=== PATIENT | female | born 1935 | race Caucasian/White ===

== ENCOUNTER → 2017-02-12 | Outpatient (CLI) | payer MEDICARE, OTHER ==
--- NOTE | 2017-02-13 07:58 | MM ---
Reason for exam: additional evaluation requested from prior study. Last mammogram was performed 1 year ago. History: Patient is postmenopausal and has history of breast cancer at age 78. Mastectomy of the left breast, 2013. Benign stereotactic core biopsy of the left breast, August 31, 1999. Took estrogen for 1 year. Took progesterone for 1 year. Physical Findings: Nurse did not find any significant physical abnormalities on exam. MG 3D Diag Mammo W/Cad RT CC, MLO, and XCCM view(s) were taken of the right breast. Prior study comparison: February 10, 2016, right breast MG 3d diag mammo w/cad RT. August 06, 2015, right breast MG 3d diag mammo w/cad RT. The breast tissue is heterogeneously dense. This may lower the sensitivity of mammography. Finding #1: There is a 5 mm equal density (isodense) mass in the subareolar position of the right breast. Finding #2: There are typically benign calcifications in the right breast. These results were verbally communicated with the patient and result sheet given to the patient on 02/12/17. ASSESSMENT: Incomplete: need additional imaging evaluation, BI-RAD 0 RECOMMENDATION: Ultrasound of the right breast.
--- NOTE | 2017-02-13 08:02 | USB ---
Reason for exam: additional evaluation requested from abnormal screening. History: Patient is postmenopausal and has history of breast cancer at age 78. Mastectomy of the left breast, 2014. Benign stereotactic core biopsy of the left breast, August 31, 1999. Took estrogen for 1 year. Took progesterone for 1 year. US Breast Limited RT Right breast ultrasound demonstrates no cystic or solid lesion seen. Few subareolar ducts. 02/10/16 ultrasound review and 08/06/15 ultrasound reviewed. These results were verbally communicated with the patient and result sheet given to the patient on 02/12/17. ASSESSMENT: Benign, BI-RAD 2 RECOMMENDATION: Follow-up diagnostic mammogram of the right breast in 6 months.
== END | disposition home or self-care (01) ==
LOC: RADMAMWWP 15:09
PROVIDERS: ATTEND Surgery
DX: R92.2 Inconclusive mammogram (principal); R92.8 Other abnormal and inconclusive findings on diagnostic imaging of breast; Z85.3 Personal history of malignant neoplasm of breast
CPT/HCPCS: 76642; G0206; G0279

== ENCOUNTER → 2018-06-13 | Outpatient (CLI) | payer MEDICARE, OTHER ==
--- NOTE | 2018-06-14 07:34 | MM ---
Reason for exam: additional evaluation requested from prior study. Last mammogram was performed 10 months ago. History: Patient is postmenopausal and has history of breast cancer at age 78. Mastectomy of the left breast, 2013. Benign stereotactic core biopsy of the left breast, August 31, 1999. Took estrogen for 1 year. Took progesterone for 1 year. Physical Findings: Nurse did not find any significant physical abnormalities on exam. MG 3D Diag Mammo W/Cad RT CC, MLO, and XCCL view(s) were taken of the right breast. Prior study comparison: August 15, 2017, right breast MG 3d diag mammo w/cad RT. February 12, 2017, right breast MG 3d diag mammo w/cad RT. The breast tissue is heterogeneously dense. This may lower the sensitivity of mammography. Finding: There are typically benign vascular calcifications in the right breast and few benign round calcifications in the right breast. There is no discrete abnormality. These results were verbally communicated with the patient and result sheet given to the patient on 06/13/18. ASSESSMENT: Benign, BI-RAD 2 RECOMMENDATION: Follow-up diagnostic mammogram of the right breast in 1 year.
== END ==
LOC: RADMAMWWP 15:17
PROVIDERS: ATTEND Surgery
DX: Z08 Encounter for follow-up examination after completed treatment for malignant neoplasm (principal); Z85.3 Personal history of malignant neoplasm of breast
CPT/HCPCS: 77065; G0279; 77061

== ENCOUNTER 2019-05-07 10:21 | Inpatient (IN) | payer MEDICARE, OTHER ==
--- NOTE | 2019-05-07 10:48 | ED ---
General Adult HPI - General Chief complaint: Weakness Stated complaint: Weakness, Poss Med Reaction Time Seen by Provider: 05/07/19 10:25 Source: patient, EMS, RN notes reviewed Mode of arrival: EMS Limitations: no limitations - History of Present Illness Initial comments: This is an 84-year-old female presents emergency department with past medical history significant for recent GI bleed diverticulitis and atrial fibrillation. Patient was just released from [facility] yesterday. Patient states at home she didn't feel good is no more specific. Patient states she's weak all over no new areas of pain. Patient denies chest pain difficulty breathing shortness of breath per patient denies any fever. Patient denies abdominal pain patient denies nausea vomiting or diarrhea. Patient denies headache patient denies numbness weakness. Patient denies any injury or trauma. - Related Data Home Medications Medication Instructions Recorded Confirmed Acetaminophen Tab [Tylenol] 650 mg PO Q6HR PRN 05/07/19 05/07/19 Baclofen [Lioresal] 5 mg PO TID PRN 05/07/19 05/07/19 Cefuroxime Axetil [Ceftin] 500 mg PO BID 05/07/19 05/07/19 Clobetasol Propionate [Temovate 1 applic TOPICAL BID 05/07/19 05/07/19 0.05% Cream] Cyanocobalamin (Vitamin B-12) 1,000 mcg PO DAILY 05/07/19 05/07/19 [Vitamin B-12] Ferrous Sulfate [Feosol] 325 mg PO DAILY 05/07/19 05/07/19 HYDROcodone/APAP 5-325MG [[place] 0.5 tab PO Q6H PRN 05/07/19 05/07/19 5-325] Ibuprofen [Motrin] 600 mg PO BID PRN 05/07/19 05/07/19 LORazepam [Ativan] 1 mg PO DAILY PRN 05/07/19 05/07/19 Metoprolol Tartrate [Lopressor] 25 mg PO Q8H 05/07/19 05/07/19 Omeprazole 20 mg PO BID 05/07/19 05/07/19 Sennosides [Senna] 8.6 mg PO BID 05/07/19 05/07/19 Simvastatin [Zocor] 20 mg PO HS 05/07/19 05/07/19 metroNIDAZOLE [Flagyl] 500 mg PO Q8H 05/07/19 05/07/19 Allergies Allergy/AdvReac Type Severity Reaction Status Date / Time aspirin Allergy Unknown Verified 05/07/19 11:07 codeine Allergy Unknown Verified 05/07/19 11:07 nalbuphine [From Nubain] Allergy Unknown Verified 05/07/19 11:07 Review of Systems ROS Statement: Those systems with pertinent positive or pertinent negative responses have been documented in the HPI. ROS Other: All systems not noted in ROS Statement are negative. Past Medical History Past Medical History: Atrial Fibrillation, Cancer, GERD/Reflux, GI Bleed, Hyperlipidemia Past Surgical History: Back Surgery, Breast Surgery, Hysterectomy Past Psychological History: Anxiety Smoking Status: Former smoker Past Alcohol Use History: None Reported Past Drug Use History: None Reported General Exam - General Exam Comments Initial Comments: GENERAL: Patient is well-developed and well-nourished. Patient is nontoxic and well- hydrated and is in mild distress. ENT: Neck is soft and supple. No significant lymphadenopathy is noted. Oropharynx is clear. Moist mucous membranes. EYES: The sclera were anicteric and conjunctiva were pink and moist. Extraocular movements were intact and pupils were equal round and reactive to light. Eyelids were unremarkable. PULMONARY: Unlabored respirations. Good breath sounds bilaterally. No audible rales rhonchi or wheezing was noted. CARDIOVASCULAR: Patient has an irregular rate and rhythm at about 150 beats a minute ABDOMEN: Soft and nontender with normal bowel sounds. SKIN: Skin is clear with no lesions or rashes and otherwise unremarkable. NEUROLOGIC: Patient is alert and oriented x3. Cranial nerves II through XII are grossly intact. Motor and sensory are also intact. Normal speech, volume and content. Symmetrical smile. MUSCULOSKELETAL: Normal extremities with adequate strength and full range of motion. No lower extremity swelling or edema. No calf tenderness. LYMPHATICS: No significant lymphadenopathy is noted PSYCHIATRIC: Normal psychiatric evaluation. Limitations: no limitations Course Vital Signs 05/07/19 05/07/19 05/07/19 10:28 10:30 10:38 Temperature 98.1 F Pulse Rate 158 H 161 H Pulse Rate [ 158 H Left Supine Pulse Oximetery ] Respiratory 18 16 Rate Blood Pressure 123/85 O2 Sat by Pulse 100 99 Oximetry 05/07/19 05/07/19 11:32 13:10 Temperature Pulse Rate 165 H 133 H Pulse Rate [ Left Supine Pulse Oximetery ] Respiratory 18 18 Rate Blood Pressure 101/65 112/67 O2 Sat by Pulse 99 98 Oximetry Medical Decision Making - Medical Decision Making EKG shows atrial fibrillation with rapid ventricular response at 141 bpm QRS is 74 QT interval 310 QTC is 474. Patient's EKG does show some ST segment depression in precordial leads V4 V5 and V6. Patient's chest x-ray shows no acute abnormality. Patient's troponin was slightly elevated and was placed on Cardizem because his heart rate. I did not start her on a blood thinner because she has a recent his tory she tells me of a GI bleed. Patient remained without chest pain throughout her stay. I spoke with Dr. Newell she agreed to admit the patient admitted the patient I wrote admitting orders - Lab Data Result diagrams: 05/07/19 10:37 05/07/19 11:40 Lab Results 05/07/19 05/07/19 05/07/19 Range/Units 10:37 11:40 11:40 WBC 8.0 (3.8-10.6) k/uL RBC 3.23 L (3.80-5.40) m/uL Hgb 10.2 L (11.4-16.0) gm/dL Hct 31.2 L (34.0-46.0) % MCV 96.4 (80.0-100.0) fL MCH 31.5 (25.0-35.0) pg MCHC 32.7 (31.0-37.0) g/dL RDW 20.9 H (11.5-15.5) % Plt Count 478 H (150-450) k/uL Neutrophils % 81 % Lymphocytes % 10 % Monocytes % 6 % Eosinophils % 1 % Basophils % 1 % Neutrophils # 6.5 (1.3-7.7) k/uL Lymphocytes # 0.8 L (1.0-4.8) k/uL Monocytes # 0.5 (0-1.0) k/uL Eosinophils # 0.1 (0-0.7) k/uL Basophils # 0.1 (0-0.2) k/uL Hypochromasia Slight Poikilocytosis Slight Anisocytosis Moderate Macrocytosis Slight PT (9.0-12.0) sec INR (<1.2) APTT (22.0-30.0) sec Sodium 139 (137-145) mmol/L Potassium 4.4 (3.5-5.1) mmol/L Chloride 112 H (98-107) mmol/L Carbon Dioxide 18 L (22-30) mmol/L Anion Gap 9 mmol/L BUN 17 (7-17) mg/dL Creatinine 0.62 (0.52-1.04) mg/dL Est GFR (CKD-EPI)AfAm >90 (>60 ml/min/1.73 sqM) Est GFR (CKD-EPI)NonAf 83 (>60 ml/min/1.73 sqM) Glucose 100 H (74-99) mg/dL Calcium 8.5 (8.4-10.2) mg/dL Magnesium 2.0 (1.6-2.3) mg/dL Total Bilirubin 0.5 (0.2-1.3) mg/dL AST 29 (14-36) U/L ALT 16 (9-52) U/L Alkaline Phosphatase 97 (38-126) U/L Troponin I 0.226 H* (0.000-0.034) ng/mL Total Protein 5.4 L (6.3-8.2) g/dL Albumin 2.6 L (3.5-5.0) g/dL TSH 0.868 (0.465-4.680) mIU/L 05/07/19 Range/Units 11:40 WBC (3.8-10.6) k/uL RBC (3.80-5.40) m/uL Hgb (11.4-16.0) gm/dL Hct (34.0-46.0) % MCV (80.0-100.0) fL MCH (25.0-35.0) pg MCHC (31.0-37.0) g/dL RDW (11.5-15.5) % Plt Count (150-450) k/uL Neutrophils % % Lymphocytes % % Monocytes % % Eosinophils % % Basophils % % Neutrophils # (1.3-7.7) k/uL Lymphocytes # (1.0-4.8) k/uL Monocytes # (0-1.0) k/uL Eosinophils # (0-0.7) k/uL Basophils # (0-0.2) k/uL Hypochromasia Poikilocytosis Anisocytosis Macrocytosis PT 9.7 (9.0-12.0) sec INR 0.9 (<1.2) APTT 18.2 L (22.0-30.0) sec Sodium (137-145) mmol/L Potassium (3.5-5.1) mmol/L Chloride (98-107) mmol/L Carbon Dioxide (22-30) mmol/L Anion Gap mmol/L BUN (7-17) mg/dL Creatinine (0.52-1.04) mg/dL Est GFR (CKD-EPI)AfAm (>60 ml/min/1.73 sqM) Est GFR (CKD-EPI)NonAf (>60 ml/min/1.73 sqM) Glucose (74-99) mg/dL Calcium (8.4-10.2) mg/dL Magnesium (1.6-2.3) mg/dL Total Bilirubin (0.2-1.3) mg/dL AST (14-36) U/L ALT (9-52) U/L Alkaline Phosphatase (38-126) U/L Troponin I (0.000-0.034) ng/mL Total Protein (6.3-8.2) g/dL Albumin (3.5-5.0) g/dL TSH (0.465-4.680) mIU/L Critical Care Time Critical Care Time: Yes Total Critical Care Time: 35 Disposition Clinical Impression: Atrial fibrillation with rapid ventricular response, Elevated troponin Disposition: ADMITTED IP TO THIS HOSP Referrals: Gideon Calderon MD [Primary Care Provider] - 1-2 days Time of Disposition: 14:03
[2019-05-07] MEDS: DILTIAZEM 125 MG in SODIUM CHLORIDE 0.9% 100 ML IV SCH (10:53)
[2019-05-07 11:00] LABS: Anisocytosis Moderate; Basophils # (A) 0.1 k/uL (0-0.2); Basophils % (A) 1 %; Eosinophils # (A) 0.1 k/uL (0-0.7); Eosinophils % (A) 1 %; HCT 31.2 % (34.0-46.0); HGB 10.2 gm/dL (11.4-16.0); Hypochromasia Slight; Lymphocytes # (A) 0.8 k/uL (1.0-4.8); Lymphocytes % (A) 10 %; MCH 31.5 pg (25.0-35.0); MCHC 32.7 g/dL (31.0-37.0); MCV 96.4 fL (80.0-100.0); Macrocytosis Slight; Mean Platelet Volume 7.8; Monocytes # (A) 0.5 k/uL (0-1.0); Monocytes % (A) 6 %; Neutrophils # (A) 6.5 k/uL (1.3-7.7); Neutrophils % (A) 81 %; Platelet Count 478 k/uL (150-450); Poikilocytosis Slight; RBC 3.23 m/uL (3.80-5.40); RDW 20.9 % (11.5-15.5)
--- NOTE | 2019-05-07 11:22 | XR ---
EXAMINATION TYPE: XR chest 2V DATE OF EXAM: 05/07/2019 COMPARISON: NONE TECHNIQUE: PA and lateral views submitted. HISTORY: Dysrhythmia FINDINGS: Heart is prominent. There is ectasia of the aorta. Coarsened interstitium. No pneumothorax. No pleura l effusion. Arthropathy of the shoulders and diffuse osteopenia. Atherosclerotic change aorta. Surgic al clips in the gallbladder fossa noted. IMPRESSION: 1. Coarsened interstitium may secondary to chronic lung disease. Superimposed interstitial pneumoniti s or congestion not excluded without prior exam. Correlate clinically
[2019-05-07] MEDS ORDERED: LORazepam 2 MG/ML INJ IV STA (12:08)
[2019-05-07] MEDS ORDERED: HYDROcodone/APAP 5-325MG 1 EACH TAB PO STA (12:09)
[2019-05-07] MEDS ORDERED: SODIUM CHLORIDE 0.9% 500 ML 500 ML IV STA (12:10)
[2019-05-07 12:11] LABS: INR 0.9 (<1.2); Prothrombin Time 9.7 sec (9.0-12.0)
[2019-05-07 12:13] LABS: Partial Thromboplastin Time 18.2 sec (22.0-30.0)
[2019-05-07 12:14] LABS: ALT 16 U/L (9-52); AST 29 U/L (14-36); African American GFR (CKD) >90 (>60 ml/min/1.73 sqM); Albumin 2.6 g/dL (3.5-5.0); Alkaline Phosphatase 97 U/L (38-126); Anion Gap 9 mmol/L; Blood Urea Nitrogen 17 mg/dL (7-17); Calcium 8.5 mg/dL (8.4-10.2); Carbon Dioxide 18 mmol/L (22-30); Chloride 112 mmol/L (98-107); Glucose 100 mg/dL (74-99); Potassium 4.4 mmol/L (3.5-5.1); Sodium 139 mmol/L (137-145); Total Bilirubin 0.5 mg/dL (0.2-1.3); Total Protein 5.4 g/dL (6.3-8.2)
[2019-05-07] MEDS ORDERED: NITROGLYCERIN SL TABS 0.4 MG TAB SUBLINGUAL PRN (14:04)
[2019-05-07] MEDS ORDERED: LORazepam 1 MG TAB PO PRN (14:49)
[2019-05-07] MEDS ORDERED: ACETAMINOPHEN TAB 325 MG TAB PO PRN (14:49)
--- NOTE | 2019-05-07 15:06 | P.HPIM ---
History of Present Illness H&P Date: 05/07/19 84 years old patient of Dr. Calderon with past medical history of osteoarthritis breast cancer, hyperlipidemia, headache migraine, history of peptic ulcer disease, discharged yesterday from [facility] of treatment for acute diverticulitis and GI bleed presents today to the ER with generalized weakness associated with chest discomfort. On evaluation patient was found to be in A. fib with RVR associated with troponin elevation. Patient was in [facility] for 16 days where she presented with syncope and abdominal pain. CT abdomen and pelvis done initially did not show any acute abnormality. Patient presented to atrial fibrillation with RVR while patient was in the hospital was started on Lopressor at [place]. Patient's sodium began to have abdominal pain and rectal bleeding Dr. nam of the patient's suspected diverticulitis and started patient on Zosyn and Flagyl. Zosyn was switched to cefepime with improvement in patient's abdominal pain and GI bleeding. Endocrine is was held due to concern of GI bleed. Patient comes in today with heart rate of 158 respiratory rate 16 blood pressure 101/65 oxygen 99% on 2 L. Patient was placed on Cardizem drip and cardiology was consulted. On evaluation admitted in design any chest pain or shortness of breath. She complains of generalized weakness, cold feet and feeling of uneasiness in the chest. On eval uation of blood work patient has a hemoglobin of 10.2 (hemoglobin of 8 on discharge ), sodium 139 potassium 4.4 bicarb 18, troponin 0.226. TSH 0.868. Patient to be placed on telemetry. IV fluids initiated on 1 25 mL per hour Review of Systems Constitutional: Denies chills, Denies fever, endorses lethargic lDenies weight loss Eyes: denies decreased vision, denies diplopia, denies discharge, denies pain Ears: deny: decreased hearing Ears, nose, mouth and throat: Denies dental pain, Denies headache, Denies nasal discharge, Denies nose pain Cardiovascular: Denies chest pain, Denies decreased exercise tolerance, Denies edema, Denies high blood pressure, endorses irregular heart beat, endorses palpitations, Denies paroxysmal nocturnal dyspnea, endorses rapid heart beat, Denies shortness of breath Respiratory: Denies congestion, Denies cough, Denies cough with sputum, Denies dyspnea, Denies home oxygen, Denies wheezing Gastrointestinal: Denies abdominal pain, Denies change in bowel habits, Denies coffee ground emesis, Denies early satiety, Denies excessive gas, Denies heartburn, Denies hematemesis, Denies hematochezia, Denies loss of appetite, Denies nausea, Denies vomiting Genitourinary: Denies dysuria, Denies flank pain, Denies kidney stones, Denies menorrhagia, Denies urgency, Denies urinary frequency Musculoskeletal: Denies gait dysfunction, Denies limitation of motion, Denies morning stiffness, Denies muscle cramps Integumentary: Denies rash, Denies wounds, Denies brittle nails, Denies change in hair/nails, Denies darkening of skin Neurological: Denies balance difficulties, Denies change in speech, Denies double vision, Denies gait dysfunction, Denies loss of vision, Denies motor disturbance, Denies numbness, Denies paralysis, Denies paresthesias, Denies seizures Psychiatric: Denies anxiety, Denies depression Endocrine: Denies excessive sweating, Denies excessive thirst, Denies high blood sugars, Denies palpitations Hematologic/Lymphatic: Denies easy bruising, Denies lymphadenopathy Past Medical History Past Medical History: Atrial Fibrillation, Cancer, GERD/Reflux, GI Bleed, Hyperlipidemia Past Surgical History: Back Surgery, Breast Surgery, Hysterectomy Past Psychological History: Anxiety Smoking Status: Former smoker Past Alcohol Use History: None Reported Past Drug Use History: None Reported - Past Family History Mother Family Medical History: Congestive Heart Failure (CHF), Coronary Artery Disease (CAD) Father Family Medical History: Diabetes Mellitus Brother(s) Family Medical History: Congestive Heart Failure (CHF), Coronary Artery Disease (CAD) (Mother at age 75 father at age ED 3 sister from unclear reasons 2 brothers from heart disease one daughter and one son were healthy once and from brain hemorrhage) Medications and Allergies Home Medications Medication Instructions Recorded Confirmed Type Acetaminophen Tab [Tylenol] 650 mg PO Q6HR PRN 05/07/19 05/07/19 History Baclofen [Lioresal] 5 mg PO TID PRN 05/07/19 05/07/19 History Cefuroxime Axetil [Ceftin] 500 mg PO BID 05/07/19 05/07/19 History Clobetasol Propionate [Temovate 1 applic TOPICAL BID 05/07/19 05/07/19 History 0.05% Cream] Cyanocobalamin (Vitamin B-12) 1,000 mcg PO DAILY 05/07/19 05/07/19 History [Vitamin B-12] Ferrous Sulfate [Feosol] 325 mg PO DAILY 05/07/19 05/07/19 History HYDROcodone/APAP 5-325MG [[place] 0.5 tab PO Q6H PRN 05/07/19 05/07/19 History 5-325] Ibuprofen [Motrin] 600 mg PO BID PRN 05/07/19 05/07/19 History LORazepam [Ativan] 1 mg PO DAILY PRN 05/07/19 05/07/19 History Metoprolol Tartrate [Lopressor] 25 mg PO Q8H 05/07/19 05/07/19 History Omeprazole 20 mg PO BID 05/07/19 05/07/19 History Sennosides [Senna] 8.6 mg PO BID 05/07/19 05/07/19 History Simvastatin [Zocor] 20 mg PO HS 05/07/19 05/07/19 History metroNIDAZOLE [Flagyl] 500 mg PO Q8H 05/07/19 05/07/19 History Allergies Allergy/AdvReac Type Severity Reaction Status Date / Time aspirin Allergy Unknown Verified 05/07/19 11:07 codeine Allergy Unknown Verified 05/07/19 11:07 nalbuphine [From Nubain] Allergy Unknown Verified 05/07/19 11:07 Physical Exam Vitals: Vital Signs Temp Pulse Pulse Resp BP Pulse Ox 05/07/19 14:12 145 H 18 125/81 99 05/07/19 13:10 133 H 18 112/67 98 05/07/19 11:32 165 H 18 101/65 99 05/07/19 10:38 161 H 16 99 05/07/19 10:30 158 H 05/07/19 10:28 98.1 F 158 H 18 123/85 100 Intake and Output 05/06/19 05/07/19 05/07/19 22:59 06:59 14:59 Intake Total 16.667 Balance 16.667 Intake: Intake, IV Titration 16.667 Amount Diltiazem 125 mg In 16.667 Sodium Chloride 0.9% 100 ml @ 5 MG/HR 5 mls/hr IV .Q24H [facility] Rx#:[id number] Other: Weight 56.699 kg - Constitutional General appearance: cooperative, no acute distress, obese anxious appearing - EENT Eyes: anicteric sclerae, PERRLA, normal appearance ENT: hearing grossly normal - Neck Neck: no lymphadenopathy, normal ROM, no other, no rigidity, no stridor, no thyromegaly - Respiratory Respiratory: bilateral: CTA, negative: diminished, dullness, rales, rhonchi - Cardiovascular Rhythm: Irregularly irregular Heart sounds: normal: S1, S2 Abnormal Heart Sounds: 3/5 systolic murmur, no diastolic murmur, no rub, no S3 Gallop, no S4 Gallop, no click, no other - Gastrointestinal General gastrointestinal: normal bowel sounds, soft nontender - Integumentary Integumentary: no rash - Neurologic Neurologic: CNII-XII intact - Musculoskeletal Musculoskeletal: gait normal, strength equal bilaterally - Psychiatric Psychiatric: A&O x's 3, appropriate affect Results CBC & Chem 7: 05/07/19 10:37 05/07/19 11:40 Labs: Abnormal Lab Results - Last 24 Hours (Table) 05/07/19 05/07/19 05/07/19 Range/Units 10:37 11:40 11:40 RBC 3.23 L (3.80-5.40) m/uL Hgb 10.2 L (11.4-16.0) gm/dL Hct 31.2 L (34.0-46.0) % RDW 20.9 H (11.5-15.5) % Plt Count 478 H (150-450) k/uL Lymphocytes # 0.8 L (1.0-4.8) k/uL APTT (22.0-30.0) sec Chloride 112 H (98-107) mmol/L Carbon Dioxide 18 L (22-30) mmol/L Glucose 100 H (74-99) mg/dL Troponin I 0.226 H* (0.000-0.034) ng/mL Total Protein 5.4 L (6.3-8.2) g/dL Albumin 2.6 L (3.5-5.0) g/dL 05/07/19 Range/Units 11:40 RBC (3.80-5.40) m/uL Hgb (11.4-16.0) gm/dL Hct (34.0-46.0) % RDW (11.5-15.5) % Plt Count (150-450) k/uL Lymphocytes # (1.0-4.8) k/uL APTT 18.2 L (22.0-30.0) sec Chloride (98-107) mmol/L Carbon Dioxide (22-30) mmol/L Glucose (74-99) mg/dL Troponin I (0.000-0.034) ng/mL Total Protein (6.3-8.2) g/dL Albumin (3.5-5.0) g/dL Thrombosis Risk Factor Assmnt - DVT/VTE Prophylaxis DVT/VTE Prophylaxis: Mechanical Prophylaxis ordered Assessment and Plan Plan: #1 atrial fibrillation with RVR patient initiated her on Cardizem titrated to 10 mg/h metoprolol initiated at 25 mg every 8 hours. Patient cannot be on anticoagulation due to recent GI bleed. Cardiology consult placed EKG suggests atrial fibrillation continue patient on telemetry. Likely possibility from dehydration continue normal saline at 100 mL/h #2 acute blood loss anemia hemoglobin stable at 10.2. Patient required multiple units of transfusion in the other hospital. CBC daily to monitor hemoglobin #3 history of lumbar compression fracture multiple falls with annual fracture noted in the L2. PTOT consult. #4 history of diverticulitis currently on treatment with antibiotics will switch patient to cefepime for one week end date 05/14 along with Flagyl #5 history of hypertension continue metoprolol 25 every 8 #6 history of hyperlipidemia continue simvastatin #7 history of syncope appeared to be a vasovagal syncope. #8 constipation continue Colace and MiraLAX as needed #98 prophylaxis with Pepcid 20 mg by mouth daily #10 DVT prophylaxis continue mechanical prophylaxis ordered him heparin #11 history of anxiety continue Ativan 1 mg by mouth daily as needed
[2019-05-07] MEDS: SODIUM CHLORIDE 0.9% 1,000 ML IV SCH (15:21)
[2019-05-07] MEDS: NITROGLYCERIN OINT 1 INCH/GM PACKET TOPICAL SCH (18:25)
[2019-05-07] MEDS: CEFEPIME 2 GM in SODIUM CHLORIDE 0.9% 100 ML IVPB SCH (18:32)
[2019-05-07] MEDS: METOPROLOL TARTRATE 25 MG TAB PO SCH (18:37)
[2019-05-07] MEDS: metroNIDAZOLE 500 MG TAB PO SCH ×2 (18:37→22:42)
[2019-05-07] MEDS: PANTOPRAZOLE 40 MG TABLET PO SCH (18:37)
[2019-05-07] MEDS: HYDROcodone/APAP 5-325MG 1 EACH TAB PO PRN (20:20)
[2019-05-07] MEDS: BACLOFEN 10 MG TAB PO PRN (22:42)
[2019-05-07] MEDS: ATORVASTATIN 10 MG TAB PO SCH (22:42)
[2019-05-08] MEDS: METOPROLOL TARTRATE 25 MG TAB PO SCH ×3 (00:15→18:24)
[2019-05-08] MEDS: CEFEPIME 2 GM in SODIUM CHLORIDE 0.9% 100 ML IVPB SCH ×3 (00:15→18:23)
[2019-05-08 03:20] LABS: Cholesterol 129 mg/dL (<200); HDL Cholesterol 33 mg/dL (40-60); LDL Cholesterol,Calculated 75 mg/dL (0-99); Triglycerides 103 mg/dL (<150)
[2019-05-08] MEDS: CLOBETASOL PROP 0.05% CR 15GM TOPICAL SCH ×2 (06:30→10:36)
[2019-05-08] MEDS: NITROGLYCERIN OINT 1 INCH/GM PACKET TOPICAL SCH ×4 (06:34→19:14)
[2019-05-08] MEDS: PANTOPRAZOLE 40 MG TABLET PO SCH (06:37)
[2019-05-08] MEDS: SODIUM CHLORIDE 0.9% 1,000 ML IV SCH ×2 (07:50→13:35)
[2019-05-08] MEDS ORDERED: ASPIRIN 325 MG TAB PO SCH (09:00)
[2019-05-08] MEDS: FERROUS SULFATE 325 MG TAB PO SCH (09:20)
[2019-05-08] MEDS: metroNIDAZOLE 500 MG TAB PO SCH ×2 (09:20→18:24)
[2019-05-08] MEDS: HYDROcodone/APAP 5-325MG 1 EACH TAB PO PRN ×2 (09:21→18:26)
[2019-05-08 12:03] VITALS: BMI 25.8
[2019-05-08] MEDS: LORazepam 0.5 MG TAB PO PRN ×2 (13:34→22:13)
[2019-05-08] MEDS: DILTIAZEM 125 MG in SODIUM CHLORIDE 0.9% 100 ML IV SCH (13:36)
--- NOTE | 2019-05-08 14:23 | P.PN ---
Subjective Progress Note Date: 05/08/19 84 [address] old patient of Dr. Calderon with past medical history of osteoarthritis breast cancer, hyperlipidemia, headache migraine, history of peptic ulcer disease, discharged yesterday from [facility] of treatment for acute diverticulitis and GI bleed presents today to the ER with generalized weakness associated with chest discomfort. On evaluation patient was found to be in A. fib with RVR associated with troponin elevation. Patient was in [facility] for 16 days where she presented with syncope and abdominal pain. CT abdomen and pelvis done initially did not show any acute abnormality. Patient presented to atrial fibrillation with RVR while patient was in the [facility] was started on Lopressor at [place]. Patient's sodium began to have abdominal pain and rectal bleeding Dr. nam of the patient's suspected diverticulitis and started patient on Zosyn and Flagyl. Zosyn was switched to cefepime with improvement in patient's abdominal pain and GI bleeding. En docrine is was held due to concern of GI bleed. Patient comes in today with heart rate of 158 respiratory rate 16 blood pressure 101/65 oxygen 99% on 2 L. Patient was placed on Cardizem drip and cardiology was consulted. On evaluation admitted in design any chest pain or shortness of breath. She complains of generalized weakness, cold feet and feeling of uneasiness in the chest. On evaluation of blood work patient has a hemoglobin of 10.2 (hemoglobin of 8 on discharge ), sodium 139 potassium 4.4 bicarb 18, troponin 0.226. TSH 0.868. Patient to be placed on telemetry. IV fluids initiated on 1 25 mL per hour 05/08: Patient is on a Cardizem drip. hedis coordinator is atrial fibrillation with controlled rate. Patient is not candidate for anticoagulation due to GI bleed. Troponin subinsular 0.226, 0.808, 0.916. Cardiology is on consult. The patient and daughter state that patient does not take Ativan only once a day but up to 3 times a day. On home medication list, Ativan is listed at 1 mg at bedtime. We will change this to 0.5 mg twice daily and patient and daughter are in a greement. Patient has been afebrile, heart rate 58, blood pressure 104/52, pulse ox 99% on room air. Regarding IV antibiotics, patient was on IV antibiotics at [facility] but when she was discharged it was found that she did not have any IV coverage and patient was discharged on oral antibiotics in the form of Flagyl and Ceftin. Patient has been resumed on cefepime which will be continued during her hospitalization. Plan at discharge will be to resume the oral antibiotics. IV fluids may be discontinued. Repeat lab in the morning. Objective - Vital Signs Vital signs: Vital Signs Temp 97.7 F 05/08/19 08:20 Pulse 74 05/08/19 08:21 Resp 16 05/08/19 08:20 BP 150/63 05/08/19 08:20 Pulse Ox 100 05/08/19 08:20 Intake & Output 05/07/19 05/08/19 05/08/19 18:59 06:59 18:59 Intake Total 16.667 120 Balance 16.667 120 Weight 56.699 kg 58.1 kg Intake: Intake, IV Titration 16.667 Amount Diltiazem 125 mg In 16.667 Sodium Chloride 0.9% 100 ml @ 5 MG/HR 5 mls/hr IV .Q24H [facility] Rx#:[id number] Oral 0 120 Other: Voiding Method Toilet Toilet # Voids 1 1 1 - Exam Review of Systems Constitutional: Denies chills, Denies fever, endorses lethargic lDenies weight loss Eyes: denies decreased vision, denies diplopia, denies discharge, denies pain Ears: deny: decreased hearing Ears, nose, mouth and throat: Denies dental pain, Denies headache, Denies nasal discharge, Denies nose pain Cardiovascular: Denies chest pain, Denies decreased exercise tolerance, Denies edema, Denies high blood pressure, endorses irregular heart beat, endorses palpitations, Denies paroxysmal nocturnal dyspnea, endorses rapid heart beat, Denies shortness of breath Respiratory: Denies congestion, Denies cough, Denies cough with sputum, Denies dyspnea, Denies home oxygen, Denies wheezing Gastrointestinal: Denies abdominal pain, Denies change in bowel habits, Denies coffee ground emesis, Denies early satiety, Denies excessive gas, Denies heartburn, Denies hematemesis, Denies hematochezia, Denies loss of appetite, Denies nausea, Denies vomiting Genitourinary: Denies dysuria, Denies flank pain, Denies kidney stones, Denies menorrhagia, Denies urgency, Denies urinary frequency Musculoskeletal: Denies gait dysfunction, Denies limitation of motion, Denies morning stiffness, Denies muscle cramps Integumentary: Denies rash, Denies wounds, Denies brittle nails, Denies change in hair/nails, Denies darkening of skin Neurological: Denies balance difficulties, Denies change in speech, Denies double vision, Denies gait dysfunction, Denies loss of vision, Denies motor dist urbance, Denies numbness, Denies paralysis, Denies paresthesias, Denies seizures Psychiatric: Reports anxiety, Denies depression Endocrine: Denies excessive sweating, Denies excessive thirst, Denies high blood sugars, Denies palpitations Hematologic/Lymphatic: Denies easy bruising, Denies lymphadenopathy - Constitutional General appearance: cooperative, no acute distress, obese anxious appearing - EENT Eyes: anicteric sclerae, PERRLA, normal appearance ENT: hearing grossly normal - Neck Neck: no lymphadenopathy, normal ROM, no other, no rigidity, no stridor, no thyromegaly - Respiratory Respiratory: bilateral: CTA, negative: diminished, dullness, rales, rhonchi - Cardiovascular Rhythm: Irregularly irregular Heart sounds: normal: S1, S2 Abnormal Heart Sounds: 3/5 systolic murmur, no diastolic murmur, no rub, no S3 Gallop, no S4 Gallop, no click, no other hedis coordinator: Atrial fibrillation, controlled rate - Gastrointestinal General gastrointestinal: normal bowel sounds, soft nontender - Integumentary Integumentary: no rash - Neurologic Neurologic: CNII-XII intact - Musculoskeletal Musculoskeletal: gait normal, strength equal bilaterally - Psychiatric Psychiatric: A&O x's 3, appropriate affect - Labs CBC & Chem 7: 05/07/19 10:37 05/07/19 11:40 Labs: Abnormal Lab Results - Last 24 Hours (Table) 05/07/19 05/07/19 05/07/19 Range/Units 11:40 11:40 11:40 APTT 18.2 L (22.0-30.0) sec Chloride 112 H (98-107) mmol/L Carbon Dioxide 18 L (22-30) mmol/L Glucose 100 H (74-99) mg/dL Troponin I 0.226 H* (0.000-0.034) ng/mL Total Protein 5.4 L (6.3-8.2) g/dL Albumin 2.6 L (3.5-5.0) g/dL HDL Cholesterol (40-60) mg/dL 05/07/19 05/07/19 05/08/19 Range/Units 11:40 18:04 00:01 APTT (22.0-30.0) sec Chloride (98-107) mmol/L Carbon Dioxide (22-30) mmol/L Glucose (74-99) mg/dL Troponin I 0.808 H* 0.916 H* (0.000-0.034) ng/mL Total Protein (6.3-8.2) g/dL Albumin (3.5-5.0) g/dL HDL Cholesterol 33 L (40-60) mg/dL Assessment and Plan Plan: #1 atrial fibrillation with RVR patient initiated her on Cardizem titrated to 10 mg/h metoprolol initiated at 25 mg every 8 hours. Patient cannot be on anticoagulation due to recent GI bleed. Cardiology consult placed EKG suggests atrial fibrillation continue patient on telemetry. Likely possibility from dehydration continue normal saline at 100 mL/h #2 acute blood loss anemia hemoglobin stable at 10.2. Patient required multiple units of transfusion in the other hospital. Repeat CBC in the morning. #3 elevated troponins. Cardiology on consult. #4 history of lumbar compression fracture multiple falls with annual fracture noted in the L2. PTOT consult. #4 history of diverticulitis currently on treatment with antibiotics will switch patient to cefepime for one week end date 05/14 along with Flagyl #5 history of hypertension continue metoprolol 25 every 8h #6 history of hyperlipidemia continue simvastatin #7 history of syncope appeared to be a vasovagal syncope. #8 constipation continue Colace and MiraLAX as needed #9 GI prophylaxis. Protonix. #10 DVT prophylaxis SCDs and SINDHU hose #11 generalized anxiety disorder. Ativan changed to 0.5mg twice daily as needed Discharge plan: Impression and plan of care have been directed as dictated by the signing physician. Brandie Ernandez nurse practitioner acting as scribe for signing physician.
[2019-05-08] MEDS: FLECAINIDE 50 MG TAB PO SCH (22:12)
[2019-05-08] MEDS: BACLOFEN 10 MG TAB PO PRN (22:12)
[2019-05-08] MEDS: ATORVASTATIN 10 MG TAB PO SCH (22:13)
--- NOTE | 2019-05-08 22:14 | CONS ---
CONSULTATION Mrs. Singh is an 84-year-old female who is seen for cardiac evaluation. This patient's electronic medical records reviewed. History obtained from the patient. This patient was just discharged from [facility] yesterday. Patient was in the hospital with abdominal pain and was treated for diverticulitis with antibiotics. She felt better. She did have episodes of GI bleed at [facility] and required blood transfusion. We do not have all the records. Patient was in atrial fibrillation, which lasted for a short time. The patient was not anticoagulated because of the recent GI bleed. The patient's atrial fibrillation was associated with some rapid heart rate. The patient, in the emergency room, patient was found to be in atrial fibrillation with rapid ventricular response. Patient was continued on Cardizem. The patient was started on Cardizem drip. During the night, the patient converted to the normal sinus rhythm. There is no definite prior history of myocardial infarction. PAST MEDICAL HISTORY: Includes history of paroxysmal atrial fibrillation, history of breast cancer, history of diverticulitis, hysterectomy, hyperlipidemia. SOCIAL HISTORY: Patient is a former smoker. The patient's discharge medications from [facility] include: Tylenol, baclofen, Ceftin, vitamin B12, Feosol, I am not sure whether patient was taking Motrin or not. Ativan, Lopressor 25 mg 3 times a day, Zocor 20 mg daily. PHYSICAL EXAMINATION: Physical examination in the emergency room revealed the patient's heart rate to be 145- 150, blood pressure was 125/81 mmHg, oxygen saturation was 91%. The patient currently is lying comfortably in the bed without any respiratory distress. The heart rate is 58 per minute, blood pressure is 104/52 mmHg. Head/ENT examination is negative. Neck is supple. There is no increase in jugular venous pressure. Both the carotid pulses are felt. There is no bruit. Chest is symmetrical. Heart: The PMI is not felt. First and second heart sounds are normal. Lungs are clinically clear to auscultation and percussion. ABDOMEN: Soft. Liver and spleen are not enlarged. There is a mild generalized abdominal tenderness noted. EXTREMITIES: Peripheral pulses are 1+. The patient's electrolytes are normal. The patient's initial troponin was 0.226 and it increased to 0.916. EKG showed evidence of atrial fibrillation with a rapid ventricular response. FINAL IMPRESSION: 1. This patient has presented with acute atrial fibrillation with rapid ventricular response. Now she has converted back to the normal sinus rhythm. The patient is not in acute respiratory distress. There is no evidence of any heart failure. 2. The patient has a history of a gastrointestinal bleed and recent diverticulitis being treated with antibiotics. Patient's hemoglobin is 10.2. PLAN: 1. We will get the records from [facility]. 2. We will repeat the echocardiogram to rule out any significant new wall motion abnormalities. 3. We will continue the patient on the beta nafisa, Lopressor 25 mg q.8h hourly. 4. If the echocardiogram reveals normal left ventricular systolic function, we will start the patient on flecainide 50 mg b.i.d. to prevent the recurrent episodes of atrial fibrillation. The patient has mild rise in the troponin which is not suggestive of acute coronary syndrome and most likely secondary to atrial fibrillation with rapid ventricular response. The patient should be anticoagulated when it is okay with Dr. Gomez. Thank you for this consultation. MMROSLYNL / LARISAN: [id number] /
[2019-05-09] MEDS: CEFEPIME 2 GM in SODIUM CHLORIDE 0.9% 100 ML IVPB SCH ×4 (00:35→22:55)
[2019-05-09] MEDS: NITROGLYCERIN OINT 1 INCH/GM PACKET TOPICAL SCH ×3 (00:37→17:22)
[2019-05-09] MEDS: METOPROLOL TARTRATE 25 MG TAB PO SCH ×4 (00:37→22:55)
[2019-05-09] MEDS: metroNIDAZOLE 500 MG TAB PO SCH ×4 (00:38→22:55)
[2019-05-09] MEDS: CLOBETASOL PROP 0.05% CR 15GM TOPICAL SCH ×3 (00:38→21:29)
[2019-05-09] MEDS: HYDROcodone/APAP 5-325MG 1 EACH TAB PO PRN ×2 (03:10→22:55)
[2019-05-09 06:48] LABS: Anisocytosis Moderate; HCT 27.8 % (34.0-46.0); HGB 8.8 gm/dL (11.4-16.0); Hypochromasia Moderate; MCH 31.1 pg (25.0-35.0); MCHC 31.5 g/dL (31.0-37.0); MCV 98.6 fL (80.0-100.0); Macrocytosis Moderate; Mean Platelet Volume 7.9; Platelet Count 471 k/uL (150-450); RBC 2.82 m/uL (3.80-5.40); RDW 21.2 % (11.5-15.5); WBC 7.7 k/uL (3.8-10.6)
[2019-05-09 06:56] LABS: African American GFR (CKD) >90 (>60 ml/min/1.73 sqM); Anion Gap 8 mmol/L; Blood Urea Nitrogen 17 mg/dL (7-17); Calcium 8.5 mg/dL (8.4-10.2); Carbon Dioxide 15 mmol/L (22-30); Chloride 116 mmol/L (98-107); Glucose 94 mg/dL (74-99); Potassium 4.5 mmol/L (3.5-5.1); Sodium 139 mmol/L (137-145)
[2019-05-09] MEDS: PANTOPRAZOLE 40 MG TABLET PO SCH (06:57)
[2019-05-09] MEDS: FERROUS SULFATE 325 MG TAB PO SCH (09:08)
[2019-05-09] MEDS: FLECAINIDE 50 MG TAB PO SCH ×2 (09:09→20:29)
[2019-05-09] MEDS: LORazepam 0.5 MG TAB PO PRN ×2 (09:22→16:24)
--- NOTE | 2019-05-09 11:01 | ECHOF ---
Referral Reason:atrial fib MEASUREMENTS -------- HEIGHT: 129.5 cm WEIGHT: 58.1 kg BP: RVIDd: 2.1 cm (< 3.3) IVSd: 1.2 cm (0.6 - 1.1) LVIDd: 2.9 cm (3.9 - 5.3) LVPWd: 1.3 cm (0.6 - 1.1) IVSs: 1.8 cm LVIDs: 1.4 cm LVPWs: 1.6 cm LAESV Index (A-L): 33.13 ml/m Ao Diam: 2.7 cm (2.0 - 3.7) AV Cusp: 1.3 cm (1.5 - 2.6) LA Diam: 3.6 cm (2.7 - 3.8) MV EXCURSION: 10.759 mm (> 18.000) MV EF SLOPE: 63 mm/s (70 - 150) EPSS: 0.6 cm RAP: 5.00 mmHg RVSP: 36.40 mmHg FINDINGS -------- Atrial fibrillation. This was a technically good study. The left ventricular size is normal. There is mild concentric left ventricular hypertrophy. Overa ll left ventricular systolic function is normal with, an EF between 55 - 60 %. The right ventricle is normal in size. LA is midly dilated 29-33ml/m2. The right atrial size is normal. Interatrial and interventricular septum intact. Aortic valve is trileaflet and is mildly thickened. The mitral valve is normal. The mitral valve leaflets are mildly thickened. Mild mitral annular c alcification present. Mild mitral regurgitation is present. The tricuspid valve appears structurally normal. Moderate tricuspid regurgitation present. There is mild pulmonary hypertension. Trace/mild (physiologic) pulmonic regurgitation. The aortic root size is normal. Normal inferior vena cava with normal inspiratory collapse consistent with estimated right atrial pre ssure of 5 mmHg. The pulmonary veins were not recorded. There is no pericardial effusion. CONCLUSIONS -------- 1. Atrial fibrillation. 2. This was a technically good study. 3. The left ventricular size is normal. 4. There is mild concentric left ventricular hypertrophy. 5. Overall left ventricular systolic function is normal with, an EF between 55 - 60 %. 6. The right ventricle is normal in size. 7. LA is midly dilated 29-33ml/m2. 8. The right atrial size is normal. 9. Interatrial and interventricular septum intact. 10. Aortic valve is trileaflet and is mildly thickened. 11. The mitral valve is normal. 12. The mitral valve leaflets are mildly thickened. 13. Mild mitral annular calcification present. 14. Mild mitral regurgitation is present. 15. The tricuspid valve appears structurally normal. 16. Moderate tricuspid regurgitation present. 17. There is mild pulmonary hypertension. 18. Trace/mild (physiologic) pulmonic regurgitation. 19. The aortic root size is normal. 20. Normal inferior vena cava with normal inspiratory collapse consistent with estimated right atrial pressure of 5 mmHg. 21. The pulmonary veins were not recorded. 22. There is no pericardial effusion. RETREAD BUILDER: Alejandra Chong RDCS
--- NOTE | 2019-05-09 12:10 | P.PN ---
Subjective Progress Note Date: 05/09/19 84 [address] patient of Dr. Calderon with past medical history of osteoarthritis breast cancer, hyperlipidemia, headache migraine, history of peptic ulcer disease, discharged yesterday from [facility] of treatment for acute diverticulitis and GI bleed presents today to the ER with generalized weakness associated with chest discomfort. On evaluation patient was found to be in A. fib with RVR associated with troponin elevation. Patient was in [facility] for 16 days where she presented with syncope and abdominal pain. CT abdomen and pelvis done initially did not show any acute abnormality. Patient presented to atrial fibrillation with RVR while patient was in the [facility] was started on Lopressor at [place]. Patient's sodium began to have abdominal pain and rectal bleeding Dr. nam of the patient's suspected diverticulitis and started patient on Zosyn and Flagyl. Zosyn was switched to cefepime with improvement in patient's abdominal pain and GI bleeding. En docrine is was held due to concern of GI bleed. Patient comes in today with heart rate of 158 respiratory rate 16 blood pressure 101/65 oxygen 99% on 2 L. Patient was placed on Cardizem drip and cardiology was consulted. On evaluation admitted in design any chest pain or shortness of breath. She complains of generalized weakness, cold feet and feeling of uneasiness in the chest. On evaluation of blood work patient has a hemoglobin of 10.2 (hemoglobin of 8 on discharge ), sodium 139 potassium 4.4 bicarb 18, troponin 0.226. TSH 0.868. Patient to be placed on telemetry. IV fluids initiated on 1 25 mL per hour 05/08: Patient is on a Cardizem drip. cardiac monitor is atrial fibrillation with controlled rate. Patient is not candidate for anticoagulation due to GI bleed. Troponin subinsular 0.226, 0.808, 0.916. Cardiology is on consult. The patient and daughter state that patient does not take Ativan only once a day but up to 3 times a day. On home medication list, Ativan is listed at 1 mg at bedtime. We will change this to 0.5 mg twice daily and patient and daughter are in a greement. Patient has been afebrile, heart rate 58, blood pressure 104/52, pulse ox 99% on room air. Regarding IV antibiotics, patient was on IV antibiotics at [facility] but when she was discharged it was found that she did not have any IV coverage and patient was discharged on oral antibiotics in the form of Flagyl and Ceftin. Patient has been resumed on cefepime which will be continued during her hospitalization. Plan at discharge will be to resume the oral antibiotics. IV fluids may be discontinued. Repeat lab in the morning. 05/09: Patient has been seen by cardiology with plan to continue Lopressor 25 mg every 8 hours. If patient has normal left ventricular systolic function, plan is to start flecainide 50 mg twice daily. Acute coronary syndrome ruled out. Regarding anticoagulation, this can be started once cleared by Dr. Gomez. Echocardiogram reveals EF of 55-60% with mild concentric left ventricular hypertrophy, mild mitral regurgitation, moderate tricuspid regurgitation, mild pulmonary hypertension. cardiac monitor has been atrial fibrillation rate con trolled. Patient has been afebrile, heart rate 74, blood pressure 139/64, pulse ox 97% on room air. Repeat lab work reveals hemoglobin 8.8, white count 7.7, platelet count 471. Creatinine 0.67. Chloride is 116, CO2 15. Today, patient is requesting that Ativan at nighttime be increased and we will do this at 1 mg and continue 0.5 mg twice daily as needed. Patient is also requesting that lidocaine patch and Flonase be resumed. These are medications patient states that she has at home but are not on her home medication list. Objective - Vital Signs Vital signs: Vital Signs Temp 96.9 F L 05/09/19 08:00 Pulse 74 05/09/19 08:00 Resp 14 05/09/19 08:00 BP 139/64 05/09/19 08:00 Pulse Ox 97 05/09/19 08:00 Intake & Output 05/08/19 05/09/19 05/09/19 18:59 06:59 18:59 Intake Total 120 118 Output Total 550 100 Balance 120 -432 -100 Weight 58.1 kg 59.7 kg Intake: Oral 120 118 Output: Urine 550 100 Other: Voiding Method Toilet # Voids 2 2 1 - Exam Review of Systems Constitutional: Denies chills, Denies fever, endorses lethargic lDenies weight loss Eyes: denies decreased vision, denies diplopia, denies discharge, denies pain Ears: deny: decreased hearing Ears, nose, mouth and throat: Denies dental pain, Denies headache, reports nasal congestion Cardiovascular: Denies chest pain, Denies decreased exercise tolerance, Denies edema, Denies high blood pressure, endorses irregular heart beat, endorses palpitations, Denies paroxysmal nocturnal dyspnea, endorses rapid heart beat, Denies shortness of breath Respiratory: Denies congestion, Denies cough, Denies cough with sputum, Denies dyspnea, Denies home oxygen, Denies wheezing Gastrointestinal: Denies abdominal pain, Denies change in bowel habits, Denies coffee ground emesis, Denies early satiety, Denies excessive gas, Denies he artburn, Denies hematemesis, Denies hematochezia, Denies loss of appetite, Denies nausea, Denies vomiting Genitourinary: Denies dysuria, Denies flank pain, Denies kidney stones, Denies menorrhagia, Denies urgency, Denies urinary frequency Musculoskeletal: Denies gait dysfunction, Denies limitation of motion, Denies morning stiffness, Denies muscle cramps, reports chronic back pain Integumentary: Denies rash, Denies wounds, Denies brittle nails, Denies change in hair/nails, Denies darkening of skin Neurological: Denies balance difficulties, Denies change in speech, Denies double vision, Denies gait dysfunction, Denies loss of vision, Denies motor disturbance, Denies numbness, Denies paralysis, Denies paresthesias, Denies seizures Psychiatric: Reports anxiety, Denies depression Endocrine: Denies excessive sweating, Denies excessive thirst, Denies high blood sugars, Denies palpitations Hematologic/Lymphatic: Denies easy bruising, Denies lymphadenopathy - Constitutional General appearance: cooperative, no acute distress, obese - EENT Eyes: anicteric sclerae, PERRLA, normal appearance ENT: hearing grossly normal - Neck Neck: no lymphadenopathy, normal ROM, no other, no rigidity, no stridor, no thyromegaly - Respiratory Respiratory: bilateral: CTA, negative: diminished, dullness, rales, rhonchi - Cardiovascular Rhythm: Irregularly irregular Heart sounds: normal: S1, S2 Abnormal Heart Sounds: 3/5 systolic murmur, no diastolic murmur, no rub, no S3 Gallop, no S4 Gallop, no click, no other cardiac monitor: Atrial fibrillation, controlled rate - Gastrointestinal General gastrointestinal: normal bowel sounds, soft nontender - Integumentary Integumentary: no rash - Neurologic Neurologic: CNII-XII intact - Musculoskeletal Musculoskeletal: gait normal, strength equal bilaterally - Psychiatric Psychiatric: A&O x's 3, appropriate affect - Labs CBC & Chem 7: 05/09/19 06:06 05/09/19 06:09 Labs: Abnormal Lab Results - Last 24 Hours (Table) 05/09/19 05/09/19 Range/Units 06:06 06:09 RBC 2.82 L (3.80-5.40) m/uL Hgb 8.8 L (11.4-16.0) gm/dL Hct 27.8 L (34.0-46.0) % RDW 21.2 H (11.5-15.5) % Plt Count 471 H (150-450) k/uL Chloride 116 H (98-107) mmol/L Carbon Dioxide 15 L (22-30) mmol/L Assessment and Plan Plan: #1 atrial fibrillation with RVR patient initiated her on Cardizem titrated to 10 mg/h metoprolol initiated at 25 mg every 8 hours. Patient cannot be on anticoagulation due to recent GI bleed. This will need to be cleared by Dr. Gomez the patient is known to have a drop in her hemoglobin. Patient remains in atrial fibrillation with rate controlled. #2 acute blood loss anemia. Patient required multiple units of transfusion in the other hospital. Repeat CBC in the morning. #3 elevated troponins. Acute coronary syndrome ruled out. Cardiology consult appreciated. #4 history of lumbar compression fracture multiple falls with annual fracture noted in the L2. PTOT consult. #4 history of diverticulitis currently on treatment with antibiotics will switch patient to cefepime for one week end date 05/14 along with Flagyl. Plan is for patient to continue Ceftin and Flagyl as an outpatient. Insurance would not cover for IV antibiotics. #5 history of hypertension continue metoprolol 25 every 8h #6 history of hyperlipidemia continue simvastatin #7 history of syncope appeared to be a vasovagal syncope. #8 constipation continue Colace and MiraLAX as needed #9 GI prophylaxis. Protonix. #10 DVT prophylaxis SCDs and SINDHU hose #11 generalized anxiety disorder. Ativan changed to 0.5mg twice daily as needed and added Ativan 1 mg at bedtime. Discharge plan: home Impression and plan of care have been directed as dictated by the signing physician. Brandie Ernandez nurse practitioner acting as scribe for signing physician.
[2019-05-09] MEDS: LIDOCAINE 5% PATCH TOPICAL SCH (13:00)
[2019-05-09] MEDS: FLUTICASONE 50MCG/SPRAY NASAL 16GM EA NOSTRIL SCH (13:00)
--- NOTE | 2019-05-09 15:59 | P.PN ---
Subjective Progress Note Date: 05/09/19 This is an 84-year-old female, who was discharged from [facility], she was here in the hospital with symptoms of abdominal pain and was treated for diverticulitis with antibiotics, felt overall better. She did have episodes of GI bleed and required a blood transfusion there, patient was in atrial fibrillation for a period of time while she was there, and was not anticoagulated because of the recent GI bleed. Patent rhythm today is normal sinus rhythm. Blood pressure 126/60 with a heart rate in the 60s, 96% on room air. Blood cell count 7.7, hemoglobin 8.8, platelet count 471. Sodium 139, potassium 4.5, BUN 17 and creatinine 0.6. Echocardiogram with Doppler study revealed a normal left ventricular systolic function and patient has been initiated today on flecainide. Objective - Vital Signs Vital signs: Vital Signs Temp 98.3 F 05/09/19 13:19 Pulse 66 05/09/19 13:19 Resp 18 05/09/19 13:19 BP 127/63 05/09/19 13:19 Pulse Ox 96 05/09/19 13:19 Intake & Output 05/08/19 05/09/19 05/09/19 18:59 06:59 18:59 Intake Total 120 118 Output Total 550 100 Balance 120 -432 -100 Weight 58.1 kg 59.7 kg Intake: Oral 120 118 Output: Urine 550 100 Other: Voiding Method Toilet # Voids 2 2 3 # Bowel Movements 2 - Exam PHYSICAL EXAMINATION: GENERAL: 84 year female in no acute distress at the time of my examination HEENT: Head is atraumatic, normocephalic. Pupils equal, round. Sclera anicteric. Conjunctiva are clear. Mucous membranes of the mouth are moist. Neck is supple. There is no elevated jugular venous pressure. No carotid bruit is heard. HEART EXAMINATION: Heart S1, S2 normal. No murmur or gallop heard. CHEST EXAMINATION: Lungs are clear to auscultation and precussion. No chest wall tenderness is noted on palpation or with deep breathing. ABDOMEN: Soft, mild generalized tenderness bowel sounds are heard. No organomegaly noted. EXTREMITIES: 2+ peripheral pulses with no evidence of peripheral edema and no calf tenderness noted. NEUROLOGIC patient is awake, alert and oriented 3 . . - Labs CBC & Chem 7: 05/09/19 06:06 05/09/19 06:09 Labs: Abnormal Lab Results - Last 24 Hours (Table) 05/09/19 05/09/19 Range/Units 06:06 06:09 RBC 2.82 L (3.80-5.40) m/uL Hgb 8.8 L (11.4-16.0) gm/dL Hct 27.8 L (34.0-46.0) % RDW 21.2 H (11.5-15.5) % Plt Count 471 H (150-450) k/uL Chloride 116 H (98-107) mmol/L Carbon Dioxide 15 L (22-30) mmol/L Assessment and Plan Plan: Assessment and plan #1 atrial fibrillation with RVR , paroxysmal, currently in normal sinus rhythm #2 acute blood loss anemia. Patient required multiple units of transfusion in the other hospital. Repeat CBC in the morning. #3 elevated troponins. Acute coronary syndrome ruled out. #4 history of lumbar compression fracture multiple falls with annual fracture noted in the L2. #4 history of diverticulitis currently on treatment with antibiotics #5 history of hypertension #6 history of hyperlipidemia #7 history of syncope #8 constipation Plan From cardiology's perspective, we'll continue the patient on her current medications, we will also add flecainide to her medication regime for maintenance of normal sinus rhythm. DNP note has been reviewed, I agree with a documented findings and plan of care. Patient was seen and examined.
[2019-05-09] MEDS: DILTIAZEM 125 MG in SODIUM CHLORIDE 0.9% 100 ML IV SCH (17:21)
[2019-05-09] MEDS: LORazepam 1 MG TAB PO SCH (20:29)
[2019-05-09] MEDS: ATORVASTATIN 10 MG TAB PO SCH (20:29)
[2019-05-10] MEDS: BACLOFEN 10 MG TAB PO PRN (03:08)
[2019-05-10] MEDS: PANTOPRAZOLE 40 MG TABLET PO SCH (06:17)
[2019-05-10] MEDS: HYDROcodone/APAP 5-325MG 1 EACH TAB PO PRN ×3 (06:17→21:43)
[2019-05-10 06:44] LABS: Anisocytosis Moderate; HCT 26.2 % (34.0-46.0); HGB 8.1 gm/dL (11.4-16.0); Hypochromasia Moderate; MCH 31.3 pg (25.0-35.0); MCV 101.1 fL (80.0-100.0); Macrocytosis Moderate; Platelet Count 427 k/uL (150-450); RBC 2.59 m/uL (3.80-5.40); RDW 22.5 % (11.5-15.5); WBC 6.6 k/uL (3.8-10.6)
[2019-05-10 06:58] LABS: ALT 19 U/L (9-52); AST 24 U/L (14-36); African American GFR (CKD) >90 (>60 ml/min/1.73 sqM); Albumin 2.3 g/dL (3.5-5.0); Alkaline Phosphatase 76 U/L (38-126); Anion Gap 7 mmol/L; Blood Urea Nitrogen 17 mg/dL (7-17); Calcium 8.1 mg/dL (8.4-10.2); Carbon Dioxide 15 mmol/L (22-30); Chloride 117 mmol/L (98-107); Glucose 88 mg/dL (74-99); Potassium 4.2 mmol/L (3.5-5.1); Sodium 139 mmol/L (137-145); Total Bilirubin 0.4 mg/dL (0.2-1.3); Total Protein 4.8 g/dL (6.3-8.2)
[2019-05-10] MEDS: CEFEPIME 2 GM in SODIUM CHLORIDE 0.9% 100 ML IVPB SCH ×2 (08:17→21:44)
[2019-05-10] MEDS: METOPROLOL TARTRATE 25 MG TAB PO SCH ×2 (08:18→21:43)
[2019-05-10] MEDS: FLECAINIDE 50 MG TAB PO SCH ×2 (08:18→21:43)
[2019-05-10] MEDS: FERROUS SULFATE 325 MG TAB PO SCH (08:18)
[2019-05-10] MEDS: metroNIDAZOLE 500 MG TAB PO SCH ×3 (08:18→23:35)
[2019-05-10] MEDS: LIDOCAINE 5% PATCH TOPICAL SCH (08:18)
[2019-05-10] MEDS: FLUTICASONE 50MCG/SPRAY NASAL 16GM EA NOSTRIL SCH (08:19)
[2019-05-10] MEDS: LORazepam 0.5 MG TAB PO PRN ×2 (08:35→17:06)
[2019-05-10] MEDS ORDERED: APIXABAN 5 MG TAB PO SCH (09:00)
[2019-05-10] MEDS: CLOBETASOL PROP 0.05% CR 15GM TOPICAL SCH ×2 (10:36→23:30)
[2019-05-10] MEDS ORDERED: BACLOFEN 10 MG TAB PO PRN (11:03)
--- NOTE | 2019-05-10 12:31 | P.PN ---
Subjective Progress Note Date: 05/10/19 84 [address] old patient of Dr. Calderon with past medical history of osteoarthritis breast cancer, hyperlipidemia, headache migraine, history of peptic ulcer disease, discharged yesterday from [facility] of treatment for acute diverticulitis and GI bleed presents today to the ER with generalized weakness associated with chest discomfort. On evaluation patient was found to be in A. fib with RVR associated with troponin elevation. Patient was in [facility] for 16 days where she presented with syncope and abdominal pain. CT abdomen and pelvis done initially did not show any acute abnormality. Patient presented to atrial fibrillation with RVR while patient was in the [facility]pi ne[facility] was started on Lopressor at [place]. Patient's sodium began to have abdominal pain and rectal bleeding Dr. nam of the patient's suspected diverticulitis and started patient on Zosyn and Flagyl. Zosyn was switched to cefepime with improvement in patient's abdominal pain and GI bleeding. En docrine is was held due to concern of GI bleed. Patient comes in today with heart rate of 158 respiratory rate 16 blood pressure 101/65 oxygen 99% on 2 L. Patient was placed on Cardizem drip and cardiology was consulted. On evaluation admitted in design any chest pain or shortness of breath. She complains of generalized weakness, cold feet and feeling of uneasiness in the chest. On evaluation of blood work patient has a hemoglobin of 10.2 (hemoglobin of 8 on discharge ), sodium 139 potassium 4.4 bicarb 18, troponin 0.226. TSH 0.868. Patient to be placed on telemetry. IV fluids initiated on 1 25 mL per hour 05/08: Patient is on a Cardizem drip. 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 Patient is not candidate for anticoagulation due to GI bleed. Troponin subinsular 0.226, 0.808, 0.916. Cardiology is on consult. The patient and daughter state that patient does not take Ativan only once a day but up to 3 times a day. On home medication list, Ativan is listed at 1 mg at bedtime. We will change this to 0.5 mg twice daily and patient and daughter are in a greement. Patient has been afebrile, heart rate 58, blood pressure 104/52, pulse ox 99% on room air. Regarding IV antibiotics, patient was on IV antibiotics at [facility] but when she was discharged it was found that she did not have any IV coverage and patient was discharged on oral antibiotics in the form of Flagyl and Ceftin. Patient has been resumed on cefepime which will be continued during her hospitalization. Plan at discharge will be to resume the oral antibiotics. IV fluids may be discontinued. Repeat lab in the morning. 05/09: Patient has been seen by cardiology with plan to continue Lopressor 25 mg every 8 hours. If patient has normal left ventricular systolic function, plan is to start flecainide 50 mg twice daily. Acute coronary syndrome ruled out. Regarding anticoagulation, this can be started once cleared by Dr. Gomez. Echocardiogram reveals EF of 55-60% with mild concentric left ventricular hypertrophy, mild mitral regurgitation, moderate tricuspid regurgitation, mild pulmonary hypertension. 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 Patient has been afebrile, heart rate 74, blood pressure 139/64, pulse ox 97% on room air. Repeat lab work reveals hemoglobin 8.8, white count 7.7, platelet count 471. Creatinine 0.67. Chloride is 116, CO2 15. Today, patient is requesting that Ativan at nighttime be increased and we will do this at 1 mg and continue 0.5 mg twice daily as needed. Patient is also requesting that lidocaine patch and Flonase be resumed. These are medications patient states that she has at home but are not on her home medication list. 05/10: Cardiology continued metipranolol flecainide. 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 is normal s inus rhythm. Repeat hemoglobin is 8.1. Sodium 139, potassium 4.2, chloride 117, CO2 15, BUN 17 creatinine 0.61. Patient 100% of her breakfast along with her protein supplement. This morning, patient has been started on eliquis 5 mg twice daily by cardiology. Long discussion with the patient and her daughter. It was decided that they did not want to be on anticoagulation and baby aspirin will be started instead. Daughter is also questioning Lopressor making the patient feel very tired fatigued and without strength. Discussed the patient has multiple comorbidities causing these symptoms and she will have a long recovery to get back to her baseline. Heart rate is running in the 70s and we will try changing the Lopressor to 25 mg twice daily. Objective - Vital Signs Vital signs: Vital Signs Temp 97.7 F 05/10/19 08:10 Pulse 71 05/10/19 08:10 Resp 18 05/10/19 08:10 BP 148/65 05/10/19 08:10 Pulse Ox 97 05/10/19 08:10 Intake & Output 05/09/19 05/10/19 05/10/19 18:59 06:59 18:59 Intake Total 150 840 Output Total 700 Balance -550 840 Weight 59.2 kg Intake: Oral 150 840 Output: Urine 700 Other: Voiding Method Toilet # Voids 3 # Bowel Movements 2 - Exam Review of Systems Constitutional: Denies chills, Denies fever, endorses lethargic lDenies weight loss but reports fatigue, reports weakness Eyes: denies decreased vision, denies diplopia, denies discharge, denies pain Ears: deny: decreased hearing Ears, nose, mouth and throat: Denies dental pain, Denies headache, reports nasal congestion Cardiovascular: Denies chest pain, Denies decreased exercise tolerance, Denies edema, Denies high blood pressure, endorses irregular heart beat, endorses palpitations, Denies paroxysmal nocturnal dyspnea, endorses rapid heart beat, Denies shortness of breath Respiratory: Denies congestion, Denies cough, Denies cough with sputum, Denies dyspnea, Denies home oxygen, Denies wheezing Gastrointestinal: Denies abdominal pain, Denies change in bowel habits, Denies coffee ground emesis, Denies early satiety, Denies excessive gas, Denies heartburn, Denies hematemesis, Denies hematochezia, Denies loss of appetite, Denies nausea, Denies vomiting Genitourinary: Denies dysuria, Denies flank pain, Denies kidney stones, Denies menorrhagia, Denies urgency, Denies urinary frequency Musculoskeletal: Denies gait dysfunction, Denies limitation of motion, Denies morning stiffness, Denies muscle cramps, reports chronic back pain Integumentary: Denies rash, Denies wounds, Denies brittle nails, Denies change in hair/nails, Denies darkening of skin Neurological: Denies balance difficulties, Denies change in speech, Denies double vision, Denies gait dysfunction, Denies loss of vision, Denies motor disturbance, Denies numbness, Denies paralysis, Denies paresthesias, Denies seiz ures Psychiatric: Reports anxiety, Denies depression Endocrine: Denies excessive sweating, Denies excessive thirst, Denies high blood sugars, Denies palpitations Hematologic/Lymphatic: Denies easy bruising, Denies lymphadenopathy - Constitutional General appearance: cooperative, no acute distress, obese - EENT Eyes: anicteric sclerae, PERRLA, normal appearance ENT: hearing grossly normal - Neck Neck: no lymphadenopathy, normal ROM, no other, no rigidity, no stridor, no thyromegaly - Respiratory Respiratory: bilateral: CTA, negative: diminished, dullness, rales, rhonchi - Cardiovascular Rhythm: regular Heart sounds: normal: S1, S2 Abnormal Heart Sounds: 3/5 systolic murmur, no diastolic murmur, no rub, no S3 Gallop, no S4 Gallop, no click, no other 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: Sinus rhythm - Gastrointestinal General gastrointestinal: normal bowel sounds, soft nontender - Integumentary Integumentary: no rash - Neurologic Neurologic: CNII-XII intact - Musculoskeletal Musculoskeletal: gait normal, strength equal bilaterally - Psychiatric Psychiatric: A&O x's 3, appropriate affect - Labs CBC & Chem 7: 05/10/19 05:54 05/10/19 05:54 Labs: Abnormal Lab Results - Last 24 Hours (Table) 05/10/19 05/10/19 Range/Units 05:54 05:54 RBC 2.59 L (3.80-5.40) m/uL Hgb 8.1 L (11.4-16.0) gm/dL Hct 26.2 L (34.0-46.0) % MCV 101.1 H (80.0-100.0) fL RDW 22.5 H (11.5-15.5) % Chloride 117 H (98-107) mmol/L Carbon Dioxide 15 L (22-30) mmol/L Calcium 8.1 L (8.4-10.2) mg/dL Total Protein 4.8 L (6.3-8.2) g/dL Albumin 2.3 L (3.5-5.0) g/dL Assessment and Plan Plan: #1 atrial fibrillation with RVR, paroxysmal atrial fibrillation, rate controlled. Metoprolol will be decreased to 25 mg twice daily, continue flecainide. Eliquis discontinued and patient was started on baby aspirin.. #2 acute blood loss anemia. Patient required multiple units of transfusion in the other hospital. Repeat CBC in the morning. #3 elevated troponins. Acute coronary syndrome ruled out. Cardiology consult appreciated. #4 history of lumbar compression fracture multiple falls with annual fracture noted in the L2. PTOT consult. #4 history of diverticulitis currently on treatment with antibiotics will switch patient to cefepime for one week end date 05/14 along with Flagyl. Plan is for patient to continue Ceftin and Flagyl as an outpatient. Insurance would not cover for IV antibiotics. #5 history of hypertension continue metoprolol 25 every 8h #6 history of hyperlipidemia continue simvastatin #7 history of syncope appeared to be a vasovagal syncope. #8 constipation continue Colace and MiraLAX as needed #9 GI prophylaxis. Protonix. #10 DVT prophylaxis SCDs and SINDHU hose #11 generalized anxiety disorder. Ativan changed to 0.5mg twice daily as needed and added Ativan 1 mg at bedtime. Discharge plan: home Impression and plan of care have been directed as dictated by the signing physician. Brandie Ernandez nurse practitioner acting as scribe for signing physician.
--- NOTE | 2019-05-10 13:01 | P.PN ---
Subjective Progress Note Date: 05/10/19 This is an 84-year-old female, who was discharged from [facility], she was here in the hospital with symptoms of abdominal pain and was treated for diverticulitis with antibiotics, felt overall better. She did have episodes of GI bleed and required a blood transfusion there, patient was in atrial fibrillation for a period of time while she was there, and was not anticoagulated because of the recent GI bleed. Patent rhythm today is normal sinus rhythm. Blood pressure 126/60 with a heart rate in the 60s, 96% on room air. Blood cell count 7.7, hemoglobin 8.8, platelet count 471. Sodium 139, potassium 4.5, BUN 17 and creatinine 0.6. Echocardiogram with Doppler study revealed a normal left ventricular systolic function and patient has been initiated today on flecainide. 05/10/2019 Patient seen and examined this morning, complaints of feeling tired and fatigued. Breathing is stable, no chest discomfort, no palpitations. She is remaining in a normal sinus rhythm. The patient is currently not on any anticoagulation for her atrial fibrillation because of recent bleeding requiring blood transfusion. Patient and daughter clearly states they do not want any blood thinners at any time. He will globin today is 8.1, sodium 139, potassium 4.2, BUN 17 and creatinine 0.6. Echocardiogram with Doppler study revealed a normal left ventricular systolic function Objective - Vital Signs Vital signs: Vital Signs Temp 97.7 F 05/10/19 08:10 Pulse 71 05/10/19 08:10 Resp 18 05/10/19 08:10 BP 148/65 05/10/19 08:10 Pulse Ox 97 05/10/19 08:10 Intake & Output 05/09/19 05/10/19 05/10/19 18:59 06:59 18:59 Intake Total 150 840 Output Total 700 Balance -550 840 Weight 59.2 kg Intake: Oral 150 840 Output: Urine 700 Other: Voiding Method Toilet # Voids 3 1 # Bowel Movements 2 1 - Exam PHYSICAL EXAMINATION: GENERAL: 84 year female in no acute distress at the time of my exam ination HEENT: Head is atraumatic, normocephalic. Pupils equal, round. Sclera anicteric. Conjunctiva are clear. Mucous membranes of the mouth are moist. Neck is supple. There is no elevated jugular venous pressure. No carotid bruit is heard. HEART EXAMINATION: Heart S1, S2 normal. No murmur or gallop heard. CHEST EXAMINATION: Lungs are clear to auscultation and precussion. No chest wall tenderness is noted on palpation or with deep breathing. ABDOMEN: Soft, mild generalized tenderness bowel sounds are heard. No organomegaly noted. EXTREMITIES: 2+ peripheral pulses with no evidence of peripheral edema and no calf tenderness noted. NEUROLOGIC patient is awake, alert and oriented 3 . . - Labs CBC & Chem 7: 05/10/19 05:54 05/10/19 05:54 Labs: Abnormal Lab Results - Last 24 Hours (Table) 05/10/19 05/10/19 Range/Units 05:54 05:54 RBC 2.59 L (3.80-5.40) m/uL Hgb 8.1 L (11.4-16.0) gm/dL Hct 26.2 L (34.0-46.0) % MCV 101.1 H (80.0-100.0) fL RDW 22.5 H (11.5-15.5) % Chloride 117 H (98-107) mmol/L Carbon Dioxide 15 L (22-30) mmol/L Calcium 8.1 L (8.4-10.2) mg/dL Total Protein 4.8 L (6.3-8.2) g/dL Albumin 2.3 L (3.5-5.0) g/dL Assessment and Plan Plan: Assessment and plan #1 atrial fibrillation with RVR , paroxysmal, currently in normal sinus rhythm #2 acute blood loss anemia. Patient required multiple units of transfusion in the other hospital. Repeat CBC in the morning. #3 elevated troponins. Acute coronary syndrome ruled out. #4 history of lumbar compression fracture multiple falls with annual fracture noted in the L2. #4 history of diverticulitis currently on treatment with antibiotics #5 history of hypertension #6 history of hyperlipidemia #7 history of syncope #8 constipation Plan From cardiology's perspective, we'll continue the patient on her current medications. DNP note has been reviewed, I agree with a documented findings and plan of care. Patient was seen and examined.
[2019-05-10] MEDS: LORazepam 1 MG TAB PO SCH (21:43)
[2019-05-10] MEDS: ATORVASTATIN 10 MG TAB PO SCH (21:43)
[2019-05-11] MEDS: HYDROcodone/APAP 5-325MG 1 EACH TAB PO PRN ×3 (06:15→23:58)
[2019-05-11] MEDS: LORazepam 0.5 MG TAB PO PRN ×2 (06:15→18:20)
[2019-05-11] MEDS: PANTOPRAZOLE 40 MG TABLET PO SCH (06:16)
[2019-05-11 06:19] LABS: Anisocytosis Moderate; HCT 27.4 % (34.0-46.0); Hypochromasia Moderate; MCH 32.8 pg (25.0-35.0); MCHC 32.8 g/dL (31.0-37.0); MCV 100.1 fL (80.0-100.0); Macrocytosis Moderate; Mean Platelet Volume 7.1; Platelet Count 433 k/uL (150-450); RBC 2.74 m/uL (3.80-5.40); RDW 21.7 % (11.5-15.5); WBC 7.3 k/uL (3.8-10.6)
[2019-05-11 06:32] LABS: ALT 22 U/L (9-52); AST 19 U/L (14-36); African American GFR (CKD) >90 (>60 ml/min/1.73 sqM); Albumin 2.5 g/dL (3.5-5.0); Alkaline Phosphatase 92 U/L (38-126); Anion Gap 6 mmol/L; Blood Urea Nitrogen 16 mg/dL (7-17); Calcium 8.3 mg/dL (8.4-10.2); Carbon Dioxide 18 mmol/L (22-30); Chloride 114 mmol/L (98-107); Glucose 94 mg/dL (74-99); Potassium 4.2 mmol/L (3.5-5.1); Sodium 138 mmol/L (137-145); Total Bilirubin 0.3 mg/dL (0.2-1.3); Total Protein 5.1 g/dL (6.3-8.2)
[2019-05-11] MEDS: CEFEPIME 2 GM in SODIUM CHLORIDE 0.9% 100 ML IVPB SCH ×2 (08:37→21:28)
[2019-05-11] MEDS: LIDOCAINE 5% PATCH TOPICAL SCH (08:37)
[2019-05-11] MEDS: METOPROLOL TARTRATE 25 MG TAB PO SCH ×2 (08:38→20:48)
[2019-05-11] MEDS: metroNIDAZOLE 500 MG TAB PO SCH ×3 (08:38→23:56)
[2019-05-11] MEDS: ASPIRIN 81 MG PO SCH (08:38)
[2019-05-11] MEDS: FERROUS SULFATE 325 MG TAB PO SCH (08:38)
[2019-05-11] MEDS: FLECAINIDE 50 MG TAB PO SCH ×2 (08:38→21:28)
[2019-05-11] MEDS: FLUTICASONE 50MCG/SPRAY NASAL 16GM EA NOSTRIL SCH (08:38)
[2019-05-11] MEDS: CLOBETASOL PROP 0.05% CR 15GM TOPICAL SCH ×2 (08:39→20:50)
--- NOTE | 2019-05-11 11:15 | P.PN ---
Subjective Progress Note Date: 05/11/19 84 [address] old patient of Dr. Calderon with past medical history of osteoarthritis breast cancer, hyperlipidemia, headache migraine, history of peptic ulcer disease, discharged yesterday from [facility] of treatment for acute diverticulitis and GI bleed presents today to the ER with generalized weakness associated with chest discomfort. On evaluation patient was found to be in A. fib with RVR associated with troponin elevation. Patient was in [facility] for 16 days where she presented with syncope and abdominal pain. CT abdomen and pelvis done initially did not show any acute abnormality. Patient presented to atrial fibrillation with RVR while patient was in the [facility] was started on Lopressor at [place]. Patient's sodium began to have abdominal pain and rectal bleeding Dr. nam of the patient's suspected diverticulitis and started patient on Zosyn and Flagyl. Zosyn was switched to cefepime with improvement in patient's abdominal pain and GI bleeding. En docrine is was held due to concern of GI bleed. Patient comes in today with heart rate of 158 respiratory rate 16 blood pressure 101/65 oxygen 99% on 2 L. Patient was placed on Cardizem drip and cardiology was consulted. On evaluation admitted in design any chest pain or shortness of breath. She complains of generalized weakness, cold feet and feeling of uneasiness in the chest. On evaluation of blood work patient has a hemoglobin of 10.2 (hemoglobin of 8 on discharge ), sodium 139 potassium 4.4 bicarb 18, troponin 0.226. TSH 0.868. Patient to be placed on telemetry. IV fluids initiated on 1 25 mL per hour 05/08: Patient is on a Cardizem drip. crowd controller is atrial fibrillation with controlled rate. Patient is not candidate for anticoagulation due to GI bleed. Troponin subinsular 0.226, 0.808, 0.916. Cardiology is on consult. The patient and daughter state that patient does not take Ativan only once a day but up to 3 times a day. On home medication list, Ativan is listed at 1 mg at bedtime. We will change this to 0.5 mg twice daily and patient and daughter are in a greement. Patient has been afebrile, heart rate 58, blood pressure 104/52, pulse ox 99% on room air. Regarding IV antibiotics, patient was on IV antibiotics at [facility] but when she was discharged it was found that she did not have any IV coverage and patient was discharged on oral antibiotics in the form of Flagyl and Ceftin. Patient has been resumed on cefepime which will be continued during her hospitalization. Plan at discharge will be to resume the oral antibiotics. IV fluids may be discontinued. Repeat lab in the morning. 05/09: Patient has been seen by cardiology with plan to continue Lopressor 25 mg every 8 hours. If patient has normal left ventricular systolic function, plan is to start flecainide 50 mg twice daily. Acute coronary syndrome ruled out. Regarding anticoagulation, this can be started once cleared by Dr. Gomez. Echocardiogram reveals EF of 55-60% with mild concentric left ventricular hypertrophy, mild mitral regurgitation, moderate tricuspid regurgitation, mild pulmonary hypertension. crowd controller has been normal sinus rhythm. Patient has been afebrile, heart rate 74, blood pressure 139/64, pulse ox 97% on room air. Repeat lab work reveals hemoglobin 8.8, white count 7.7, platelet count 471. Creatinine 0.67. Chloride is 116, CO2 15. Today, patient is requesting that Ativan at nighttime be increased and we will do this at 1 mg and continue 0.5 mg twice daily as needed. Patient is also requesting that lidocaine patch and Flonase be resumed. These are medications patient states that she has at home but are not on her home medication list. 05/10: Cardiology continued metipranolol flecainide. crowd controller is normal s inus rhythm. Repeat hemoglobin is 8.1. Sodium 139, potassium 4.2, chloride 117, CO2 15, BUN 17 creatinine 0.61. Patient 100% of her breakfast along with her protein supplement. This morning, patient has been started on eliquis 5 mg twice daily by cardiology. Long discussion with the patient and her daughter. It was decided that they did not want to be on anticoagulation and baby aspirin will be started instead. Daughter is also questioning Lopressor making the patient feel very tired fatigued and without strength. Discussed the patient has multiple comorbidities causing these symptoms and she will have a long recovery to get back to her baseline. Heart rate is running in the 70s and we will try changing the Lopressor to 25 mg twice daily. 05/11: Patient is currently on baby aspirin, flecainide 50 mg every 12 hours and Lopressor 25 mg twice daily. Heart rate is in the 60s and 70s in a sinus rhythm. Regarding patient's acute diverticulitis. She is on cefepime and Flagyl, for diverticulitis and completion of therapy will be on May 14. The patient has been afebrile, blood pressure 142/62, pulse ox 98% on room air. WBC 7.3, hemoglobin 9. Chloride 114 and CO2 18. Blood sugar 94. Albumin 2.5. Patient states that she is not getting any sleep here. She continues to complain of feeling tired and weak. Patient has been transferred to the [facility] floor. Objective - Vital Signs Vital signs: Vital Signs Temp 97.6 F 05/10/19 20:00 Pulse 71 05/11/19 03:58 Resp 16 05/11/19 03:58 BP 142/62 05/11/19 03:58 Pulse Ox 98 05/11/19 03:58 Intake & Output 05/10/19 05/11/19 05/11/19 18:59 06:59 18:59 Intake Total 1140 Balance 1140 Intake: Oral 1140 Other: Voiding Method Toilet # Voids 1 3 1 # Bowel Movements 1 - Exam Review of Systems Constitutional: Denies chills, Denies fever, endorses lethargic lDenies weight loss but reports fatigue, reports weakness, reports daytime sleepiness Eyes: denies decreased vision, denies diplopia, denies discharge, denies pain Ears: deny: decreased hearing Ears, nose, mouth and throat: Denies dental pain, Denies headache, reports nasal congestion Cardiovascular: Denies chest pain, Denies decreased exercise tolerance, Denies edema, Denies high blood pressure, endorses irregular heart beat, endorses palpitations, Denies paroxysmal nocturnal dyspnea, endorses rapid heart beat, Denies shortness of breath Respiratory: Denies congestion, Denies cough, Denies cough with sputum, Denies dyspnea, Denies home oxygen, Denies wheezing Gastrointestinal: Denies abdominal pain, Denies change in bowel habits, Denies coffee ground emesis, Denies early satiety, Denies excessive gas, Denies heartburn, Denies hematemesis, Denies hematochezia, Denies loss of appetite, Denies nausea, Denies vomiting Genitourinary: Denies dysuria, Denies flank pain, Denies kidney stones, Denies menorrhagia, Denies urgency, Denies urinary frequency Musculoskeletal: Denies gait dysfunction, Denies limitation of motion, Denies morning stiffness, Denies muscle cramps, reports chronic back pain Integumentary: Denies rash, Denies wounds, Denies brittle nails, Denies change in hair/nails, Denies darkening of skin Neurological: Denies balance difficulties, Denies change in speech, Denies double vision, Denies gait dysfunction, Denies loss of vision, Denies motor disturbance, Denies numbness, Denies paralysis, Denies paresthesias, Denies seizures Psychiatric: Reports anxiety, Denies depression Endocrine: Denies excessive sweating, Denies excessive thirst, Denies high blood sugars, Denies palpitations Hematologic/Lymphatic: Denies easy bruising, Denies lymphadenopathy - Constitutional General appearance: cooperative, no acute distress, obese, in bed, daughter at bedside - EENT Eyes: anicteric sclerae, PERRLA, normal appearance ENT: hearing grossly normal - Neck Neck: no lymphadenopathy, normal ROM, no other, no rigidity, no stridor, no thyromegaly - Respiratory Respiratory: bilateral: CTA, negative: diminished, dullness, rales, rhonchi - Cardiovascular Rhythm: regular Heart sounds: normal: S1, S2 Abnormal Heart Sounds: 3/5 systolic murmur, no diastolic murmur, no rub, no S3 Gallop, no S4 Gallop, no click, no other crowd controller: Sinus rhythm - Gastrointestinal General gastrointestinal: normal bowel sounds, soft nontender - Integumentary Integumentary: no rash - Neurologic Neurologic: CNII-XII intact - Musculoskeletal Musculoskeletal: gait normal, strength equal bilaterally - Psychiatric Psychiatric: A&O x's 3, appropriate affect - Labs CBC & Chem 7: 05/11/19 06:02 05/11/19 06:02 Labs: Abnormal Lab Results - Last 24 Hours (Table) 05/11/19 05/11/19 Range/Units 06:02 06:02 RBC 2.74 L (3.80-5.40) m/uL Hgb 9.0 L (11.4-16.0) gm/dL Hct 27.4 L (34.0-46.0) % MCV 100.1 H (80.0-100.0) fL RDW 21.7 H (11.5-15.5) % Chloride 114 H (98-107) mmol/L Carbon Dioxide 18 L (22-30) mmol/L Calcium 8.3 L (8.4-10.2) mg/dL Total Protein 5.1 L (6.3-8.2) g/dL Albumin 2.5 L (3.5-5.0) g/dL Assessment and Plan Plan: #1 atrial fibrillation with RVR, paroxysmal atrial fibrillation, rate controlled. Metoprolol will be decreased to 25 mg twice daily, continue fl ecainide. Eliquis discontinued and patient was started on baby aspirin. #2 acute blood loss anemia. Patient required multiple units of transfusion in the other hospital. Repeat CBC in the morning. #3 elevated troponins. Acute coronary syndrome ruled out. Cardiology consult appreciated. #4 history of lumbar compression fracture multiple falls with annual fracture noted in the L2. PTOT consult. #4 history of diverticulitis currently on treatment with antibiotics will switch patient to cefepime for one week end date 05/14 along with Flagyl. Plan is for patient to continue Ceftin and Flagyl as an outpatient. Insurance would not cover for IV antibiotics. #5 history of hypertension continue metoprolol 25 twice daily #6 history of hyperlipidemia continue simvastatin #7 history of syncope appeared to be a vasovagal syncope. #8 constipation continue Colace and MiraLAX as needed #9 GI prophylaxis. Protonix. #10 DVT prophylaxis SCDs and SINDHU hose #11 generalized anxiety disorder. Ativan changed to 0.5mg twice daily as needed and added Ativan 1 mg at bedtime. Discharge plan: home Impression and plan of care have been directed as dictated by the signing physician. Brandie Ernandez nurse practitioner acting as scribe for signing physician.
[2019-05-11] MEDS: ATORVASTATIN 10 MG TAB PO SCH (20:47)
[2019-05-11] MEDS: LORazepam 1 MG TAB PO SCH (20:48)
[2019-05-11 21:31] VITALS: RESP 16
[2019-05-12 05:26] VITALS: BP 144/75; TEMP 98.2
[2019-05-12] MEDS: LIDOCAINE 5% PATCH TOPICAL SCH (07:30)
[2019-05-12] MEDS: ASPIRIN 81 MG PO SCH (07:31)
[2019-05-12] MEDS: METOPROLOL TARTRATE 25 MG TAB PO SCH (07:31)
[2019-05-12] MEDS: metroNIDAZOLE 500 MG TAB PO SCH (07:31)
[2019-05-12] MEDS: PANTOPRAZOLE 40 MG TABLET PO SCH (07:31)
[2019-05-12] MEDS: FLECAINIDE 50 MG TAB PO SCH (07:31)
[2019-05-12] MEDS: FERROUS SULFATE 325 MG TAB PO SCH (07:31)
[2019-05-12] MEDS: CLOBETASOL PROP 0.05% CR 15GM TOPICAL SCH (07:33)
[2019-05-12] MEDS: HYDROcodone/APAP 5-325MG 1 EACH TAB PO PRN (08:12)
[2019-05-12] MEDS: LORazepam 0.5 MG TAB PO PRN (08:12)
[2019-05-12] MEDS: CEFEPIME 2 GM in SODIUM CHLORIDE 0.9% 100 ML IVPB SCH (08:12)
[2019-05-12] MEDS: FLUTICASONE 50MCG/SPRAY NASAL 16GM EA NOSTRIL SCH (08:15)
[2019-05-12 08:46] LABS: ALT 25 U/L (9-52); AST 22 U/L (14-36); African American GFR (CKD) >90 (>60 ml/min/1.73 sqM); Albumin 2.7 g/dL (3.5-5.0); Alkaline Phosphatase 97 U/L (38-126); Anion Gap 7 mmol/L; Anisocytosis Moderate; Blood Urea Nitrogen 14 mg/dL (7-17); Calcium 8.8 mg/dL (8.4-10.2); Carbon Dioxide 20 mmol/L (22-30); Chloride 112 mmol/L (98-107); Glucose 97 mg/dL (74-99); HCT 30.6 % (34.0-46.0); HGB 9.6 gm/dL (11.4-16.0); Hypochromasia Slight; MCH 31.7 pg (25.0-35.0); MCHC 31.5 g/dL (31.0-37.0); MCV 100.7 fL (80.0-100.0); Macrocytosis Moderate; Platelet Count 555 k/uL (150-450); Potassium 4.6 mmol/L (3.5-5.1); RBC 3.04 m/uL (3.80-5.40); RDW 22.8 % (11.5-15.5); Sodium 139 mmol/L (137-145); Total Bilirubin 0.5 mg/dL (0.2-1.3); Total Protein 5.8 g/dL (6.3-8.2); WBC 8.2 k/uL (3.8-10.6)
[2019-05-12 11:18] VITALS: PULSE 73
--- NOTE | 2019-05-12 15:55 | P.DS ---
Providers Date of admission: 05/07/19 14:05 Expected date of discharge: 05/12/19 Attending physician: Mike Neewll MD Consults: 05/07/19 14:04 Consult Physician Urgent Consulting Provider: Cardiology Zabrina Consult Reason/Comments: Elevated troponin, A. fib with rapid ventricular response Do you want consulting provider notified?: Yes 05/07/19 14:05 Consult Physician Urgent Consulting Provider: Cardiology Zabrina Consult Reason/Comments: Elevated troponin, A. fib with rapid ventricular response Do you want consulting provider notified?: Yes Primary care physician: [facility] Course: 84 [address] old patient of Dr. Calderon with past medical history of osteoarthritis breast cancer, hyperlipidemia, headache migraine, history of peptic ulcer disease, discharged yesterday from [facility] of treatment for acute diverticulitis and GI bleed presents today to the ER with generalized weakness associated with chest discomfort. On evaluation patient was found to be in A. fib with RVR associated with troponin elevation. Patient was in [facility] for 16 days where she presented with syncope and abdominal pain. CT abdomen and pelvis done initially did not show any acute abnormality. Patient presented to atrial fibrillation with RVR while patient was in the hospital was started on Lopressor at [place]. Patient's sodium began to have abdominal pain and rectal bleeding DrZohra bouts of the patient's suspected diverticulitis and started patient on Zosyn and Flagyl. Zosyn was switched to cefepime with improvement in patient's abdominal pain and GI bleeding. Endocrine is was held due to concern of GI bleed. Patient comes in today with heart rate of 158 respiratory rate 16 blood pressure 101/65 oxygen 99% on 2 L. Patient was placed on Cardizem drip and cardiology was consulted. On evaluation admitted in design any chest pain or shortness of breath. She complains of generalized weakness, cold feet and feeling of uneasiness in the chest. On evaluation of blood work patient has a hemoglobin of 10.2 (hemoglobin of 8 on discharge ), sodium 139 potassium 4.4 bicarb 18, troponin 0.226. TSH 0.868. Patient to be placed on telemetry. IV fluids initiated on 1 25 mL per hour 05/08: Patient is on a Cardizem drip. monitor worker is atrial fibrillation with controlled rate. Patient is not candidate for anticoagulation due to GI bleed. Troponin subinsular 0.226, 0.808, 0.916. Cardiology is on consult. The patient and daughter state that patient does not take Ativan only once a day but up to 3 times a day. On home medication list, Ativan is listed at 1 mg at bedtime. We will change this to 0.5 mg twice daily and patient and daughter are in agreement. Patient has been afebrile, heart rate 58, blood pressure 104/52, pulse ox 99% on room air. Regarding IV antibiotics, patient was on IV antibiotics at [facility] but when she was discharged it was found that she did not have any IV coverage and patient was discharged on oral antibiotics in the form of Flagyl and Ceftin. Patient has been resumed on cefepime which will be continued during her hospitalization. Plan at discharge will be to resume the oral antibiotics. IV fluids may be discontinued. Repeat lab in the morning. 05/09: Patient has been seen by cardiology with plan to continue Lopressor 25 mg every 8 hours. If patient has normal left ventricular systolic function, plan is to start flecainide 50 mg twice daily. Acute coronary syndrome ruled out. Regarding anticoagulation, this can be started once cleared by Dr. Gomez. Echocardiogram reveals EF of 55-60% with mild concentric left ventricular hypertrophy, mild mitral regurgitation, moderate tricuspid regurgitation, mild pulmonary hypertension. monitor worker has been normal sinus rhythm. Patient has been afebrile, heart rate 74, blood pressure 139/64, pulse ox 97% on room air. Repeat lab work reveals hemoglobin 8.8, white count 7.7, platelet count 471. Creatinine 0.67. Chloride is 116, CO2 15. Today, patient is requesting that Ativan at nighttime be increased and we will do this at 1 mg and continue 0.5 mg twice daily as needed. Patient is also requesting that lidocaine patch and Flonase be resumed. These are medications patient states that she has at home but are not on her home medication list. 05/10: Cardiology continued metipranolol flecainide. monitor worker is normal sinus rhythm. Repeat hemoglobin is 8.1. Sodium 139, potassium 4.2, chloride 117, CO2 15, BUN 17 creatinine 0.61. Patient 100% of her breakfast along with her protein supplement. This morning, patient has been started on eliquis 5 mg twice daily by cardiology. Long discussion with the patient and her daughter. It was decided that they did not want to be on anticoagulation and baby aspirin will be started instead. Daughter is also questioning Lopressor making the patient feel very tired fatigued and without strength. Discussed the patient has multiple comorbidities causing these symptoms and she will have a long recovery to get back to her baseline. Heart rate is running in the 70s and we will try changing the Lopressor to 25 mg twice daily. 05/11: Patient is currently on baby aspirin, flecainide 50 mg every 12 hours and Lopressor 25 mg twice daily. Heart rate is in the 60s and 70s in a sinus rhythm. Regarding patient's acute diverticulitis. She is on cefepime and Flagyl, for diverticulitis and completion of therapy will be on May 14. The patient has been afebrile, blood pressure 142/62, pulse ox 98% on room air. WBC 7.3, hemoglobin 9. Chloride 114 and CO2 18. Blood sugar 94. Albumin 2.5. Patient states that she is not getting any sleep here. She continues to complain of feeling tired and weak. Patient has been transferred to the [facility] floor. 05/12: Patient remains afebrile, heart rate 73, blood pressure 144/75 and pulse ox 97% on room air. Patient continues to complain of feeling weak. She did receive for use or aspirin this morning. She denies having any abdominal pain. Patient will be discharged home today in stable condition. Daughter arrived after evaluation and discussion meeting with Dr. Duran took place in all questions were answered. Discharge diagnoses: #1 atrial fibrillation with RVR, paroxysmal atrial fibrillation, rate controlled. #2 acute blood loss anemia. #3 elevated troponins. Acute coronary syndrome ruled out. #4 history of lumbar compression fracture multiple falls with annual fracture noted in the L2. #4 history of diverticulitis currently on treatment with antibiotics end date 05/14 with Ceftin and Flagyl as an outpatient. Insurance would not cover for IV antibiotics. #5 history of hypertension #6 history of hyperlipidemia #7 history of syncope appeared to be a vasovagal syncope. #8 constipation #9 Generalized anxiety disorder. Discharge plan: home Impression and plan of care have been directed as dictated by the signing renae chinchilla. Brandie Ernandez nurse practitioner acting as scribe for signing physician. Patient Condition at Discharge: Good Plan - Discharge Summary Discharge Rx Participant: No New Discharge Prescriptions: New Fluticasone Nasal [place] [Flonase Nasal [place]] 2 spray EA NOSTRIL DAILY spr Lidocaine 5% Patch [Lidoderm 5% Patch] 1 patch TOPICAL DAILY patch Flecainide [Tambocor] 50 mg PO Q12HR #60 tab Continue metroNIDAZOLE [Flagyl] 500 mg PO Q8H Cyanocobalamin (Vitamin B-12) [Vitamin B-12] 1,000 mcg PO DAILY Sennosides [Senna] 8.6 mg PO BID Ferrous Sulfate [Iron (65 MG Elemental)] 325 mg PO DAILY Cefuroxime Axetil [Ceftin] 500 mg PO BID Acetaminophen Tab [Tylenol] 650 mg PO Q6HR PRN PRN Reason: Pain Clobetasol Propionate [Temovate 0.05% Cream] 1 applic TOPICAL BID Simvastatin [Zocor] 20 mg PO HS Omeprazole 20 mg PO BID HYDROcodone/APAP 5-325MG [Gray 5-325] 1 tab PO Q6H PRN PRN Reason: BACK PAIN LORazepam [Ativan] 1 mg PO DAILY PRN PRN Reason: Anxiety Baclofen [Lioresal] 5 mg PO TID PRN PRN Reason: BACK PAIN Changed Metoprolol Tartrate [Lopressor] 25 mg PO BID #0 Discontinued Ibuprofen [Motrin] 600 mg PO BID PRN PRN Reason: Pain Discharge Medication List Acetaminophen Tab [Tylenol] 650 mg PO Q6HR PRN 05/07/19 [History] Baclofen [Lioresal] 5 mg PO TID PRN 05/07/19 [History] Cefuroxime Axetil [Ceftin] 500 mg PO BID 05/07/19 [History] Clobetasol Propionate [Temovate 0.05% Cream] 1 applic TOPICAL BID 05/07/19 [History] Cyanocobalamin (Vitamin B-12) [Vitamin B-12] 1,000 mcg PO DAILY 05/07/19 [History] Ferrous Sulfate [Iron (65 MG Elemental)] 325 mg PO DAILY 05/07/19 [History] HYDROcodone/APAP 5-325MG [Gray 5-325] 1 tab PO Q6H PRN 05/07/19 [History] LORazepam [Ativan] 1 mg PO DAILY PRN 05/07/19 [History] Omeprazole 20 mg PO BID 05/07/19 [History] Sennosides [Senna] 8.6 mg PO BID 05/07/19 [History] Simvastatin [Zocor] 20 mg PO HS 05/07/19 [History] metroNIDAZOLE [Flagyl] 500 mg PO Q8H 05/07/19 [History] Flecainide [Tambocor] 50 mg PO Q12HR #60 tab 05/12/19 [Rx] Fluticasone Nasal [place] [Flonase Nasal [place]] 2 spray EA NOSTRIL DAILY spr 05/12/19 [Rx] Lidocaine 5% Patch [Lidoderm 5% Patch] 1 patch TOPICAL DAILY patch 05/12/19 [Rx] Metoprolol Tartrate [Lopressor] 25 mg PO BID #0 05/12/19 [Rx] Follow up Appointment(s)/Referral(s): Gideon Calderon MD [Primary Care Provider] - 1 Week (The office will call you with your appointment date and time.) [facility], [NON-STAFF] - 1 Week Jannie Robles MD [STAFF PHYSICIAN] - 05/20/19 3:45 pm (You will see Dr. Burger.) Discharge Disposition: HOME SELF-CARE
== END 2019-05-12 12:54 | disposition home or self-care (01) | DRG 309 ==
LOC: EC 10:21 → 3SCARD 14:05 → 3NMEDONC 05-11 09:09
PROVIDERS: ADMIT Internal Medicine; ATTEND Internal Medicine
DX: I48.0 Paroxysmal atrial fibrillation (principal); D62 Acute posthemorrhagic anemia; M48.56XA Collapsed vertebra, not elsewhere classified, lumbar region, initial encounter for fracture; K57.92 Diverticulitis of intestine, part unspecified, without perforation or abscess without bleeding; K21.9 Gastro-esophageal reflux disease without esophagitis; E86.0 Dehydration; I10 Essential (primary) hypertension; K59.00 Constipation, unspecified; E78.5 Hyperlipidemia, unspecified; F41.1 Generalized anxiety disorder; I27.20 Pulmonary hypertension, unspecified; I08.1 Rheumatic disorders of both mitral and tricuspid valves; Z91.81 History of falling; Z90.710 Acquired absence of both cervix and uterus; Z85.3 Personal history of malignant neoplasm of breast; Z87.891 Personal history of nicotine dependence; Z86.19 Personal history of other infectious and parasitic diseases; Z88.6 Allergy status to analgesic agent; Z88.5 Allergy status to narcotic agent; Z88.8 Allergy status to other drugs, medicaments and biological substances; Z79.899 Other long term (current) drug therapy; Z82.49 Family history of ischemic heart disease and other diseases of the circulatory system; Z87.11 Personal history of peptic ulcer disease; Z83.3 Family history of diabetes mellitus; Z98.890 Other specified postprocedural states
CPT/HCPCS: 36415; 71046; 80048; 80053; 80061; 83735; 84443; 84484; 85025; 85027; 85610; 85730; 93005; 93306; 96365; 96366; 96375; 99291

== ENCOUNTER 2019-05-16 13:04 | Emergency (ER) | payer MEDICARE, OTHER ==
--- NOTE | 2019-05-16 13:34 | ED ---
General Adult HPI - General Chief complaint: Weakness Stated complaint: weakness Time Seen by Provider: 05/16/19 13:07 Source: patient Mode of arrival: EMS Limitations: no limitations - History of Present Illness Initial comments: Dictation was produced using [employer] dictation software. please excuse any grammatical, word or spelling errors. Chief Complaint: 84-year-old female presents with generalized weakness. History of Present Illness: It is a 84-year-old female she presents today with generalized weakness. Patient is a poor historian. According to patient she was brought by EMS for persistent weakness. Patient states she's been feeling very tired on a regular basis. Per EMS family trying to have patient admitted to a jail facility or assisted. She has been feeling this way for approximately one month now. Patient was just discharged from our hospital 3 days ago. Chart review shows that patient was admitted recently for H fibrillation with rapid ventricular rate, acute blood loss anemia, elevated troponin. The ROS documented in this emergency department record has been reviewed and confirmed by me. Those systems with pertinent positive or negative responses have been documented in the HPI. All other systems are other negative and/or noncontributory. PHYSICAL EXAM: General Impression: Alert and oriented x3, not in acute distress HEENT: Normocephalic atraumatic, extra-ocular movements intact, pupils equal and reactive to light bilaterally, mucous membranes moist. Cardiovascular: Heart regular rate and rhythm, S1&S2 audible, no murmurs, rubs or gallops Chest: Lungs clear to auscultation bilaterally, no rhonchi, no wheeze, no rales Abdomen: Bowel sounds present, abdomen soft, non-tender, non-distended, no organomegaly Musculoskeletal: Pulses present and equal in all extremities, no peripheral edema Motor: no focal deficits noted Neurological: CN II-XII grossly intact, no focal motor or sensory deficits noted Skin: Intact with no visualized rashes Psych: Normal affect and mood ED course: 84-year-old male presents chief complaint of generalized weakness. All signs upon arrival are within acceptable limits. EKG is nonacute Laboratory evaluation obtained. Hemoglobin is 9.0. This is stable based on patient's recent blood draws. Rest of CBC is stable. Coag panel is negative. Metabolic panel is improved. Her troponin is down to 0.05 after having a dexter urement of 0.9168 days ago. Urinalysis shows 14 white blood cells however she denies any urinary symptoms. Urinalysis is sent for culture. Patient told to be aware of this and in 48 hours she'll get the culture results. Chest x-ray is nonacute. Patient's primary care physician Dr. Dr. Calderon was seen at bedside and evaluated patient. Discussed patient case with Dr. Calderno who is a patient is amenable for discharge. Return parameters discussed patient patient clear for discharge. She will be under the care of her daughter. On Sunday they will rediscuss possible transfer to rehab facility. Patient's weakness is likely secondary to new medications. EKG interpretation: Ventricular rate 56, sinus bradycardia,. Interval 136, QS 90, QTc 451. No ME prolongation, no QTC prolongation, no ST or T-wave changes noted. Overall, this EKG is unremarkable - Related Data Home Medications Medication Instructions Recorded Confirmed Acetaminophen Tab [Tylenol] 650 mg PO Q6HR PRN 05/07/19 05/16/19 Baclofen [Lioresal] 5 mg PO TID PRN 05/07/19 05/16/19 Cefuroxime Axetil [Ceftin] 500 mg PO BID 05/07/19 05/16/19 Clobetasol Propionate [Temovate 1 applic TOPICAL BID 05/07/19 05/16/19 0.05% Cream] Cyanocobalamin (Vitamin B-12) 1,000 mcg PO DAILY 05/07/19 05/16/19 [Vitamin B-12] Ferrous Sulfate [Iron (65 MG 325 mg PO DAILY 05/07/19 05/16/19 Elemental)] HYDROcodone/APAP 5-325MG [[place] 1 tab PO Q6H PRN 05/07/19 05/16/19 5-325] LORazepam [Ativan] 1 mg PO DAILY PRN 05/07/19 05/16/19 Omeprazole 20 mg PO BID 05/07/19 05/16/19 Sennosides [Senna] 8.6 mg PO BID 05/07/19 05/16/19 Simvastatin [Zocor] 20 mg PO HS 05/07/19 05/16/19 Previous Rx's Medication Instructions Recorded Flecainide [Tambocor] 50 mg PO Q12HR #60 tab 05/12/19 Fluticasone Nasal [place] [Flonase 2 spray EA NOSTRIL DAILY spr 05/12/19 Nasal [place]] Lidocaine 5% Patch [Lidoderm 5% 1 patch TOPICAL DAILY patch 05/12/19 Patch] Metoprolol Tartrate [Lopressor] 25 mg PO BID #0 05/12/19 Allergies Allergy/AdvReac Type Severity Reaction Status Date / Time aspirin Allergy Unknown Verified 05/16/19 13:40 codeine Allergy Unknown Verified 05/16/19 13:40 nalbuphine [From Nubain] Allergy Unknown Verified 05/16/19 13:40 hydromorphone [From Dilaudid] AdvReac Confusion Verified 05/16/19 13:40 Review of Systems ROS Statement: Those systems with pertinent positive or pertinent negative responses have been documented in the HPI. ROS Other: All systems not noted in ROS Statement are negative. Past Medical History Past Medical History: Atrial Fibrillation, Cancer, GERD/Reflux, GI Bleed, Hyperlipidemia Additional Past Medical History / Comment(s): Pt had recent admission to [facility] with diverticulitis, lower GI bleed with transfusions, Afib and was in ICU. Other hx: Afib pt states which was "transient" about a year ago, L breast cancer with surgery, gastric ulcers in past, chronic back pain, constipation from norco, UTI, recently diagnosed with low iron. History of Any Multi-Drug Resistant Organisms: None Reported Past Surgical History: Appendectomy, Back Surgery, Breast Surgery, Cholecystectomy, Hysterectomy, Joint Replacement Additional Past Surgical History / Comment(s): Low back surgery, L breast mastectomy, EGD, colonoscopy, R total knee arthroplasty, robotic surgery at [facility] for biliary stone/biliary stent since removed. Past Anesthesia/Blood Transfusion Reactions: No Reported Reaction Additional Past Anesthesia/Blood Transfusion Reaction / Comment(s): Pt recently received blood without reaction. Past Psychological History: Anxiety Smoking Status: Former smoker Past Alcohol Use History: None Reported Past Drug Use History: None Reported - Past Family History Mother Family Medical History: No Reported History Additional Family Medical History / Comment(s): Mother was healthy Father Family Medical History: Chest Pain / Angina Additional Family Medical History / Comment(s): Bone cancer Brother(s) Family Medical History: Congestive Heart Failure (CHF), Coronary Artery Disease (CAD) General Exam Limitations: no limitations Course Vital Signs 05/16/19 05/16/19 13:08 15:00 Temperature 98.4 F Pulse Rate 60 62 Respiratory 18 18 Rate Blood Pressure 150/61 158/55 O2 Sat by Pulse 98 99 Oximetry Medical Decision Making - Lab Data Result diagrams: 05/16/19 13:15 05/16/19 13:15 Lab Results 05/16/19 05/16/19 05/16/19 Range/Units 13:15 13:15 13:15 WBC 8.4 (3.8-10.6) k/uL RBC 2.91 L (3.80-5.40) m/uL Hgb 9.0 L (11.4-16.0) gm/dL Hct 29.3 L (34.0-46.0) % MCV 100.6 H (80.0-100.0) fL MCH 30.9 (25.0-35.0) pg MCHC 30.7 L (31.0-37.0) g/dL RDW 21.2 H (11.5-15.5) % Plt Count 422 (150-450) k/uL Neutrophils % 84 % Lymphocytes % 9 % Monocytes % 4 % Eosinophils % 1 % Basophils % 1 % Neutrophils # 7.1 (1.3-7.7) k/uL Lymphocytes # 0.8 L (1.0-4.8) k/uL Monocytes # 0.3 (0-1.0) k/uL Eosinophils # 0.1 (0-0.7) k/uL Basophils # 0.1 (0-0.2) k/uL Hypochromasia Moderate Anisocytosis Moderate Macrocytosis Moderate PT (9.0-12.0) sec INR (<1.2) APTT (22.0-30.0) sec Sodium 138 (137-145) mmol/L Potassium 4.4 (3.5-5.1) mmol/L Chloride 109 H (98-107) mmol/L Carbon Dioxide 22 (22-30) mmol/L Anion Gap 7 mmol/L BUN 10 (7-17) mg/dL Creatinine 0.59 (0.52-1.04) mg/dL Est GFR (CKD-EPI)AfAm >90 (>60 ml/min/1.73 sqM) Est GFR (CKD-EPI)NonAf 84 (>60 ml/min/1.73 sqM) Glucose 82 (74-99) mg/dL Plasma Lactic Acid Babar 1.0 (0.7-2.0) mmol/L Calcium 8.5 (8.4-10.2) mg/dL Ionized Calcium Dexter 5.1 (4.5-5.3) mg/dL Phosphorus 3.3 (2.5-4.5) mg/dL Magnesium 1.9 (1.6-2.3) mg/dL Total Bilirubin 0.3 (0.2-1.3) mg/dL AST 25 (14-36) U/L ALT 24 (9-52) U/L Alkaline Phosphatase 79 (38-126) U/L Ammonia <9 (<30) umol/L Troponin I (0.000-0.034) ng/mL Total Protein 5.3 L (6.3-8.2) g/dL Albumin 2.6 L (3.5-5.0) g/dL TSH 0.993 (0.465-4.680) mIU/L Urine Color Urine Appearance (Clear) Urine pH (5.0-8.0) Ur Specific [place] (1.001-1.035) Urine Protein (Negative) Urine Glucose (UA) (Negative) Urine Ketones (Negative) Urine Blood (Negative) Urine Nitrite (Negative) Urine Bilirubin (Negative) Urine Urobilinogen (<2.0) mg/dL Ur Leukocyte Esterase (Negative) Urine RBC (0-5) /hpf Urine WBC (0-5) /hpf Ur Squamous Epith Cells (0-4) /hpf Urine Mucus (None) /hpf 05/16/19 05/16/19 05/16/19 Range/Units 13:15 14:04 14:05 WBC (3.8-10.6) k/uL RBC (3.80-5.40) m/uL Hgb (11.4-16.0) gm/dL Hct (34.0-46.0) % MCV (80.0-100.0) fL MCH (25.0-35.0) pg MCHC (31.0-37.0) g/dL RDW (11.5-15.5) % Plt Count (150-450) k/uL Neutrophils % % Lymphocytes % % Monocytes % % Eosinophils % % Basophils % % Neutrophils # (1.3-7.7) k/uL Lymphocytes # (1.0-4.8) k/uL Monocytes # (0-1.0) k/uL Eosinophils # (0-0.7) k/uL Basophils # (0-0.2) k/uL Hypochromasia Anisocytosis Macrocytosis PT 9.9 (9.0-12.0) sec INR 0.9 (<1.2) APTT 19.5 L (22.0-30.0) sec Sodium (137-145) mmol/L Potassium (3.5-5.1) mmol/L Chloride (98-107) mmol/L Carbon Dioxide (22-30) mmol/L Anion Gap mmol/L BUN (7-17) mg/dL Creatinine (0.52-1.04) mg/dL Est GFR (CKD-EPI)AfAm (>60 ml/min/1.73 sqM) Est GFR (CKD-EPI)NonAf (>60 ml/min/1.73 sqM) Glucose (74-99) mg/dL Plasma Lactic Acid Babar (0.7-2.0) mmol/L Calcium (8.4-10.2) mg/dL Ionized Calcium Dexter (4.5-5.3) mg/dL Phosphorus (2.5-4.5) mg/dL Magnesium (1.6-2.3) mg/dL Total Bilirubin (0.2-1.3) mg/dL AST (14-36) U/L ALT (9-52) U/L Alkaline Phosphatase (38-126) U/L Ammonia (<30) umol/L Troponin I 0.050 H* (0.000-0.034) ng/mL Total Protein (6.3-8.2) g/dL Albumin (3.5-5.0) g/dL TSH (0.465-4.680) mIU/L Urine Color Light Yellow Urine Appearance Clear (Clear) Urine pH 6.5 (5.0-8.0) Ur Specific [place] 1.007 (1.001-1.035) Urine Protein Trace H (Negative) Urine Glucose (UA) Negative (Negative) Urine Ketones Negative (Negative) Urine Blood Negative (Negative) Urine Nitrite Negative (Negative) Urine Bilirubin Negative (Negative) Urine Urobilinogen <2.0 (<2.0) mg/dL Ur Leukocyte Esterase Moderate H (Negative) Urine RBC 1 (0-5) /hpf Urine WBC 14 H (0-5) /hpf Ur Squamous Epith Cells 1 (0-4) /hpf Urine Mucus Rare H (None) /hpf Disposition Clinical Impression: Abnormal urinalysis, Weakness Disposition: HOME SELF-CARE Condition: Good Instructions (If sedation given, give patient instructions): Weakness (ED) Is patient prescribed a controlled substance at d/c from ED?: No Referrals: Gideon Calderon MD [Primary Care Provider] - 1-2 days Time of Disposition: 15:39
[2019-05-16 14:04] LABS: Anisocytosis Moderate; Basophils # (A) 0.1 k/uL (0-0.2); Basophils % (A) 1 %; Eosinophils # (A) 0.1 k/uL (0-0.7); Eosinophils % (A) 1 %; HCT 29.3 % (34.0-46.0); Hypochromasia Moderate; Lymphocytes # (A) 0.8 k/uL (1.0-4.8); Lymphocytes % (A) 9 %; MCH 30.9 pg (25.0-35.0); MCHC 30.7 g/dL (31.0-37.0); MCV 100.6 fL (80.0-100.0); Macrocytosis Moderate; Mean Platelet Volume 7.1; Monocytes # (A) 0.3 k/uL (0-1.0); Monocytes % (A) 4 %; Neutrophils # (A) 7.1 k/uL (1.3-7.7); Neutrophils % (A) 84 %; Platelet Count 422 k/uL (150-450); RBC 2.91 m/uL (3.80-5.40); RDW 21.2 % (11.5-15.5); WBC 8.4 k/uL (3.8-10.6)
[2019-05-16 14:10] LABS: Ionized Calcium 5.1 mg/dL (4.5-5.3)
[2019-05-16 14:12] LABS: Ammonia <9 umol/L (<30)
[2019-05-16 14:19] LABS: ALT 24 U/L (9-52); AST 25 U/L (14-36); African American GFR (CKD) >90 (>60 ml/min/1.73 sqM); Albumin 2.6 g/dL (3.5-5.0); Alkaline Phosphatase 79 U/L (38-126); Anion Gap 7 mmol/L; Blood Urea Nitrogen 10 mg/dL (7-17); Calcium 8.5 mg/dL (8.4-10.2); Carbon Dioxide 22 mmol/L (22-30); Chloride 109 mmol/L (98-107); Glucose 82 mg/dL (74-99); Magnesium 1.9 mg/dL (1.6-2.3); Non-African American GFR(CKD) 84 (>60 ml/min/1.73 sqM); Phosphorus 3.3 mg/dL (2.5-4.5); Potassium 4.4 mmol/L (3.5-5.1); Sodium 138 mmol/L (137-145); Total Bilirubin 0.3 mg/dL (0.2-1.3); Total Protein 5.3 g/dL (6.3-8.2)
--- NOTE | 2019-05-16 14:20 | XR ---
EXAMINATION TYPE: XR chest 1V portable DATE OF EXAM: 05/16/2019 COMPARISON: Prior chest x-ray 05/07/2019 HISTORY: Weakness and history of breast cancer, atrial fibrillation TECHNIQUE: Single frontal view of the chest is obtained. FINDINGS: Heart size is stable. Interstitium is increased. No evident pneumothorax or pleural effusi on. Postop changes are noted to the right shoulder. Arthropathy present in the bilateral shoulders. T here are overlying cardiac leads. Aorta is dense. IMPRESSION: Suspect interstitial lung disease. Correlate for possible pulmonary venous hypertension and interstitial edema.
[2019-05-16 14:40] LABS: Appearance,Urine Clear (Clear); Bilirubin,Urine Negative (Negative); Blood,Urine Negative (Negative); Color,Urine Light Yellow; Glucose,Urine (UA) Negative (Negative); Ketones,Urine Negative (Negative); Leukocyte Esterase,Urine Moderate (Negative); Mucus,Urine Rare /hpf; Nitrite,Urine Negative (Negative); PH, Urine 6.5 (5.0-8.0); Protein,Urine Trace (Negative); RBC,Urine 1 /hpf (0-5); Specific Gravity,Urine 1.007 (1.001-1.035); Squamous Epithelial Cell,Urine 1 /hpf (0-4); Urobilinogen,Urine <2.0 mg/dL (<2.0); WBC,Urine 14 /hpf (0-5)
[2019-05-16 14:53] LABS: INR 0.9 (<1.2); Prothrombin Time 9.9 sec (9.0-12.0)
[2019-05-16 15:24] LABS: Partial Thromboplastin Time 19.5 sec (22.0-30.0)
[2019-05-16 16:10] VITALS: BP 146/55; PULSE 581; RESP 8; TEMP 97.9
== END 2019-05-16 16:00 | disposition home or self-care (01) ==
LOC: EC 13:04
DX: R53.1 Weakness (principal); R82.998 Other abnormal findings in urine; R53.83 Other fatigue; K21.9 Gastro-esophageal reflux disease without esophagitis; E78.5 Hyperlipidemia, unspecified; K59.03 Drug induced constipation; T40.695A Adverse effect of other narcotics, initial encounter; Z87.891 Personal history of nicotine dependence; Z88.5 Allergy status to narcotic agent; Z88.6 Allergy status to analgesic agent; Z79.52 Long term (current) use of systemic steroids; Z79.899 Other long term (current) drug therapy; Z85.3 Personal history of malignant neoplasm of breast; Z86.2 Personal history of diseases of the blood and blood-forming organs and certain disorders involving the immune mechanism; Z90.12 Acquired absence of left breast and nipple
CPT/HCPCS: 36415; 71045; 80053; 81001; 82140; 82330; 83605; 83735; 84100; 84443; 84484; 85025; 85610; 85730; 87077; 87086; 87186; 93005; 99285

== ENCOUNTER 2019-05-19 16:56 | Inpatient (IN) | payer MEDICARE, OTHER ==
[2019-05-19] MEDS: SODIUM CHLORIDE 0.9% 500 ML 500 ML IV SCH ×2 (18:45→20:53)
--- NOTE | 2019-05-19 19:03 | ED ---
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 Patient states she's been extremely tired and weak but has no pain other than her chronic back pain. Patient denies any fever chills per patient denies any dysuria hematuria urinary frequency. Patient denies any abdominal pain patient denies nausea vomiting diarrhea. Patient denies any focal weakness or numbness. - Related Data Home Medications Medication Instructions Recorded Confirmed Acetaminophen Tab [Tylenol] 650 mg PO Q6HR PRN 05/07/19 05/19/19 Baclofen [Lioresal] 5 mg PO TID PRN 05/07/19 05/19/19 Cefuroxime Axetil [Ceftin] 500 mg PO BID 05/07/19 05/19/19 Clobetasol Propionate [Temovate 1 applic TOPICAL BID 05/07/19 05/19/19 0.05% Cream] Cyanocobalamin (Vitamin B-12) 1,000 mcg PO DAILY 05/07/19 05/19/19 [Vitamin B-12] Ferrous Sulfate [Iron (65 MG 325 mg PO DAILY 05/07/19 05/19/19 Elemental)] HYDROcodone/APAP 5-325MG [[place] 1 tab PO Q6H PRN 05/07/19 05/19/19 5-325] LORazepam [Ativan] 1 mg PO DAILY PRN 05/07/19 05/19/19 Omeprazole 20 mg PO BID 05/07/19 05/19/19 Sennosides [Senna] 8.6 mg PO BID 05/07/19 05/19/19 Simvastatin [Zocor] 20 mg PO HS 05/07/19 05/19/19 Previous Rx's Medication Instructions Recorded Flecainide [Tambocor] 50 mg PO Q12HR #60 tab 05/12/19 Fluticasone Nasal [place] [Flonase 2 spray EA NOSTRIL DAILY spr 05/12/19 Nasal [place]] Lidocaine 5% Patch [Lidoderm 5% 1 patch TOPICAL DAILY patch 05/12/19 Patch] Metoprolol Tartrate [Lopressor] 25 mg PO BID #0 05/12/19 Allergies Allergy/AdvReac Type Severity Reaction Status Date / Time aspirin Allergy Unknown Verified 05/19/19 19:31 codeine Allergy Unknown Verified 05/19/19 19:31 nalbuphine [From Nubain] Allergy Unknown Verified 05/19/19 19:31 hydromorphone [From Dilaudid] AdvReac Confusion Verified 05/19/19 19:31 Review of Systems ROS Statement: Those systems with pertinent positive or pertinent negative responses have been documented in the HPI. ROS Other: All systems not noted in ROS Statement are negative. Past Medical History Past Medical History: Atrial Fibrillation, Cancer, GERD/Reflux, GI Bleed, Hyperlipidemia Additional Past Medical History / Comment(s): Pt had recent admission to [facility] with diverticulitis, lower GI bleed with transfusions, Afib and was in ICU. Other hx: Afib pt states which was "transient" about a year ago, L breast cancer with surgery, gastric ulcers in past, chronic back pain, constipation from norco, UTI, recently diagnosed with low iron. History of Any Multi-Drug Resistant Organisms: VRE Date of last positivie culture/infection: 05/16/19 MDRO Source:: Urine Past Surgical History: Appendectomy, Back Surgery, Breast Surgery, Cholecystectomy, Hysterectomy, Joint Replacement Additional Past Surgical History / Comment(s): Low back surgery, L breast mastectomy, EGD, colonoscopy, R total knee arthroplasty, robotic surgery at [facility] for biliary stone/biliary stent since removed. Past Anesthesia/Blood Transfusion Reactions: No Reported Reaction Additional Past Anesthesia/Blood Transfusion Reaction / Comment(s): Pt recently received blood without reaction. Past Psychological History: Anxiety Smoking Status: Former smoker Past Alcohol Use History: None Reported Past Drug Use History: None Reported - Past Family History Mother Family Medical History: No Reported History Additional Family Medical History / Comment(s): Mother was healthy Father Family Medical History: Chest Pain / Angina Additional Family Medical History / Comment(s): Bone cancer Brother(s) Family Medical History: Congestive Heart Failure (CHF), Coronary Artery Disease (CAD) General Exam - General Exam Comments Initial Comments: GENERAL: Patient is well-developed and well-nourished. Patient is nontoxic and well- hydrated and is in mild distress. ENT: Neck is soft and supple. No significant lymphadenopathy is noted. Oropharynx is clear. Moist mucous membranes. Neck has full range of motion without eliciting any pain. EYES: The sclera were anicteric and conjunctiva were pink and moist. Extraocular movements were intact and pupils were equal round and reactive to light. Eyelids were unremarkable. PULMONARY: Unlabored respirations. Good breath sounds bilaterally. No audible rales rhonchi or wheezing was noted. CARDIOVASCULAR: There is a regular rate and rhythm without any murmurs gallops or rubs. ABDOMEN: Soft and nontender with normal bowel sounds. SKIN: Skin is clear with no lesions or rashes and otherwise unremarkable. NEUROLOGIC: Patient is alert and oriented x3. Cranial nerves II through XII are grossly intact. Motor and sensory are also intact. Normal speech, volume and content. Symmetrical smile. MUSCULOSKELETAL: Normal extremities with adequate strength and full range of motion. No lower extremity swelling or edema. No calf tenderness. LYMPHATICS: No significant lymphadenopathy is noted PSYCHIATRIC: Normal psychiatric evaluation. Limitations: no limitations Course Vital Signs 05/19/19 17:06 Temperature 98.2 F Pulse Rate 56 L Respiratory 18 Rate Blood Pressure 164/64 O2 Sat by Pulse 98 Oximetry Medical Decision Making - Medical Decision Making I looked up the patient's microbiology results on the urinated did show that she had an enterococcus infection that was VRE and one of the acceptable antibiotics as well as daptomycin so I started daptomycin. I spoke with Dr. Jin he agreed to admit the patient admitted the patient wrote admitting orders EKG shows sinus bradycardia 54 bpm NE interval is 176 dresses 94 Q-T intervals 486 QTC is 460. Patient's EKG shows no ST segment elevation or depression or T wave abnormalities are noted. - Lab Data Result diagrams: 05/19/19 18:57 05/19/19 18:57 Lab Results 05/19/19 05/19/19 05/19/19 Range/Units 18:57 18:57 18:57 WBC 7.5 (3.8-10.6) k/uL RBC 3.17 L (3.80-5.40) m/uL Hgb 10.2 L (11.4-16.0) gm/dL Hct 32.2 L (34.0-46.0) % MCV 101.5 H (80.0-100.0) fL MCH 32.0 (25.0-35.0) pg MCHC 31.6 (31.0-37.0) g/dL RDW 21.0 H (11.5-15.5) % Plt Count 410 (150-450) k/uL Neutrophils % (Manual) 86 % Lymphocytes % (Manual) 8 % Monocytes % (Manual) 6 % Neutrophils # (Manual) 6.45 (1.3-7.7) k/uL Lymphocytes # (Manual) 0.60 L (1.0-4.8) k/uL Monocytes # (Manual) 0.45 (0-1.0) k/uL Nucleated RBCs 0 (0-0) /100 WBC Manual Slide Review Performed Polychromasia Present Hypochromasia Slight Anisocytosis Moderate Macrocytosis Marked A Stomatocytes Present PT 9.6 (9.0-12.0) sec INR 0.9 (<1.2) APTT 19.1 L (22.0-30.0) sec Sodium 139 (137-145) mmol/L Potassium 4.6 (3.5-5.1) mmol/L Chloride 106 (98-107) mmol/L Carbon Dioxide 26 (22-30) mmol/L Anion Gap 7 mmol/L BUN 12 (7-17) mg/dL Creatinine 0.62 (0.52-1.04) mg/dL Est GFR (CKD-EPI)AfAm >90 (>60 ml/min/1.73 sqM) Est GFR (CKD-EPI)NonAf 83 (>60 ml/min/1.73 sqM) Glucose 82 (74-99) mg/dL Plasma Lactic Acid Babar (0.7-2.0) mmol/L Calcium 9.0 (8.4-10.2) mg/dL Total Bilirubin 0.3 (0.2-1.3) mg/dL AST 28 (14-36) U/L ALT 25 (9-52) U/L Alkaline Phosphatase 86 (38-126) U/L Total Protein 5.8 L (6.3-8.2) g/dL Albumin 2.9 L (3.5-5.0) g/dL 05/19/19 Range/Units 18:57 WBC (3.8-10.6) k/uL RBC (3.80-5.40) m/uL Hgb (11.4-16.0) gm/dL Hct (34.0-46.0) % MCV (80.0-100.0) fL MCH (25.0-35.0) pg MCHC (31.0-37.0) g/dL RDW (11.5-15.5) % Plt Count (150-450) k/uL Neutrophils % (Manual) % Lymphocytes % (Manual) % Monocytes % (Manual) % Neutrophils # (Manual) (1.3-7.7) k/uL Lymphocytes # (Manual) (1.0-4.8) k/uL Monocytes # (Manual) (0-1.0) k/uL Nucleated RBCs (0-0) /100 WBC Manual Slide Review Polychromasia Hypochromasia Anisocytosis Macrocytosis Stomatocytes PT (9.0-12.0) sec INR (<1.2) APTT (22.0-30.0) sec Sodium (137-145) mmol/L Potassium (3.5-5.1) mmol/L Chloride (98-107) mmol/L Carbon Dioxide (22-30) mmol/L Anion Gap mmol/L BUN (7-17) mg/dL Creatinine (0.52-1.04) mg/dL Est GFR (CKD-EPI)AfAm (>60 ml/min/1.73 sqM) Est GFR (CKD-EPI)NonAf (>60 ml/min/1.73 sqM) Glucose (74-99) mg/dL Plasma Lactic Acid Babar 0.9 (0.7-2.0) mmol/L Calcium (8.4-10.2) mg/dL Total Bilirubin (0.2-1.3) mg/dL AST (14-36) U/L ALT (9-52) U/L Alkaline Phosphatase (38-126) U/L Total Protein (6.3-8.2) g/dL Albumin (3.5-5.0) g/dL Disposition Clinical Impression: Urinary tract infection, Weakness Disposition: ADMITTED IP TO THIS [facility] Referrals: Gideon Maldonado MD [Primary Care Provider] - 1-2 days Time of Disposition: 20:14
[2019-05-19 19:13] LABS: Anisocytosis Moderate; HCT 32.2 % (34.0-46.0); HGB 10.2 gm/dL (11.4-16.0); Hypochromasia Slight; MCHC 31.6 g/dL (31.0-37.0); MCV 101.5 fL (80.0-100.0); Macrocytosis Marked; Mean Platelet Volume 7.2; Platelet Count 410 k/uL (150-450); RBC 3.17 m/uL (3.80-5.40); WBC 7.5 k/uL (3.8-10.6)
[2019-05-19 19:19] LABS: INR 0.9 (<1.2); Prothrombin Time 9.6 sec (9.0-12.0)
[2019-05-19 19:23] LABS: ALT 25 U/L (9-52); AST 28 U/L (14-36); African American GFR (CKD) >90 (>60 ml/min/1.73 sqM); Albumin 2.9 g/dL (3.5-5.0); Alkaline Phosphatase 86 U/L (38-126); Anion Gap 7 mmol/L; Blood Urea Nitrogen 12 mg/dL (7-17); Carbon Dioxide 26 mmol/L (22-30); Chloride 106 mmol/L (98-107); Glucose 82 mg/dL (74-99); Potassium 4.6 mmol/L (3.5-5.1); Sodium 139 mmol/L (137-145); Total Bilirubin 0.3 mg/dL (0.2-1.3); Total Protein 5.8 g/dL (6.3-8.2)
[2019-05-19 19:30] LABS: Partial Thromboplastin Time 19.1 sec (22.0-30.0)
[2019-05-19 19:50] LABS: Monocytes # (M) 0.45 k/uL (0-1.0); Neutrophils % (M) 86 %; Nucleated Red Blood Cells 0 /100 WBC (0-0); Total Cells Counted 100
[2019-05-19 19:51] LABS: Polychromasia Present; Stomatocytes Present
[2019-05-19] MEDS ORDERED: SODIUM CHLORIDE 0.9% 1,000 ML IV ONE (20:14)
[2019-05-19] MEDS ORDERED: DAPTOmycin 500 MG in SODIUM CHLORIDE 0.9% 50 ML IVPB SCH (21:00)
[2019-05-19] MEDS ORDERED: BACLOFEN 10 MG TAB PO PRN (22:13)
[2019-05-19] MEDS ORDERED: LORazepam 1 MG TAB PO PRN (22:13)
[2019-05-19] MEDS ORDERED: ACETAMINOPHEN TAB 325 MG TAB PO PRN (22:13)
[2019-05-19] MEDS ORDERED: NON FORMULARY DRUG (Simvastatin 20 MG) PO SCH (22:15)
[2019-05-19] MEDS: FLECAINIDE 50 MG TAB PO SCH (22:52)
[2019-05-19] MEDS: METOPROLOL TARTRATE 25 MG TAB PO SCH (22:52)
[2019-05-20] MEDS: FERROUS SULFATE 325 MG TAB PO SCH (07:56)
[2019-05-20] MEDS: SENNOSIDES 8.6 MG TAB PO SCH ×2 (07:56→20:51)
[2019-05-20] MEDS: PANTOPRAZOLE 40 MG TABLET PO SCH ×2 (07:57→17:39)
[2019-05-20] MEDS: METOPROLOL TARTRATE 25 MG TAB PO SCH ×2 (07:57→20:51)
[2019-05-20] MEDS: CYANOCOBALAMIN 500 MCG TAB PO SCH (07:57)
[2019-05-20] MEDS: FLUTICASONE 50MCG/SPRAY NASAL 16GM EA NOSTRIL SCH (07:58)
[2019-05-20] MEDS: CLOBETASOL PROP 0.05% CR 15GM TOPICAL SCH ×2 (07:58→20:51)
[2019-05-20] MEDS: FLECAINIDE 50 MG TAB PO SCH ×2 (07:58→20:51)
[2019-05-20] MEDS: LIDOCAINE 5% PATCH TOPICAL SCH (07:59)
[2019-05-20] MEDS: HYDROcodone/APAP 5-325MG 1 EACH TAB PO PRN ×2 (08:05→17:38)
[2019-05-20 08:32] LABS: ALT 24 U/L (9-52); AST 28 U/L (14-36); African American GFR (CKD) >90 (>60 ml/min/1.73 sqM); Albumin 2.8 g/dL (3.5-5.0); Alkaline Phosphatase 77 U/L (38-126); Anion Gap 8 mmol/L; Blood Urea Nitrogen 9 mg/dL (7-17); Calcium 8.7 mg/dL (8.4-10.2); Carbon Dioxide 23 mmol/L (22-30); Chloride 109 mmol/L (98-107); Glucose 73 mg/dL (74-99); Potassium 4.5 mmol/L (3.5-5.1); Sodium 140 mmol/L (137-145); Total Bilirubin 0.5 mg/dL (0.2-1.3); Total Protein 5.8 g/dL (6.3-8.2)
[2019-05-20 09:33] LABS: Anisocytosis Moderate; Basophils % (A) 1 %; Eosinophils # (A) 0.1 k/uL (0-0.7); Eosinophils % (A) 2 %; HCT 31.3 % (34.0-46.0); Hypochromasia Moderate; Lymphocytes # (A) 0.9 k/uL (1.0-4.8); Lymphocytes % (A) 17 %; MCH 32.5 pg (25.0-35.0); MCHC 31.8 g/dL (31.0-37.0); MCV 102.4 fL (80.0-100.0); Macrocytosis Marked; Mean Platelet Volume 7.1; Monocytes # (A) 0.3 k/uL (0-1.0); Monocytes % (A) 5 %; Neutrophils % (A) 73 %; Platelet Count 371 k/uL (150-450); RBC 3.06 m/uL (3.80-5.40); RDW 20.7 % (11.5-15.5); WBC 5.4 k/uL (3.8-10.6)
[2019-05-20] MEDS: NYSTATIN 100,000 UNIT/ML SUSP 500,000 UNIT/5 ML CUP PO SCH ×3 (12:35→20:51)
[2019-05-20] MEDS: LORazepam 1 MG TAB PO PRN (12:35)
--- NOTE | 2019-05-20 14:06 | P.HPIM ---
History of Present Illness H&P Date: 05/19/19 Chief Complaint: VRE UTI. 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 with a previous medical history significant for atrial fibrillation, GERD, left breast cancer status post surgery, history of osteoarthritis, joint disease of the lumbar spine, patient was hospitalized recently in [facility] after she was admitted for prolonged hospital stay due to acute diverticulitis even though her computed tomography scan of the abdomen and pelvis was negative for acute issues, she was started on IV anabiotic in subsequent she was switched to oral antibiotic and the patient was admitted to [facility] recently with atrial fibrillation with rapid ventricular response she was started on flecainide 50 mg orally twice every day she was not placed on anticoagulation because of the recent risk of GI bleed when she was in the other hospital and she was kept on aspirin 81 mg once every day knowing that the risk of stroke is extremely high at this time, patient was discharged on metoprolol 25 mg twice every day and flecainide 50 mg orally twice every day and she went home apparently she was brought into the ER on the of this month due to ge neralized weakness and had a urinalysis that time that were sent for culture and the culture came back positive for VRE and her primary care physician sent her back to the ER for admission and Sunday consultation and midline placement for IV antibiotic. Review of Systems Constitutional: Reports anorexia, Reports chronic pain, Reports fatigue, Reports lethargy, Reports weakness Eyes: denies blurred vision, denies bulging eye, denies decreased vision Ears: bilateral: decreased hearing Ears, nose, mouth and throat: Denies dysphagia, Denies neck lump, Denies swelling in throat, Denies sore throat Breasts: left: as per HPI Cardiovascular: Denies chest pain, Denies decreased exercise tolerance, Denies dyspnea on exertion, Denies leg edema, Denies rapid heart beat, Denies shortness of breath, Denies syncope Respiratory: Denies congestion, Denies cough with sputum, Denies home oxygen, Denies sleep apnea, Denies snoring, Denies wheezing Gastrointestinal: Denies abdominal pain, Denies belching, Denies change in bowel habits, Denies heartburn, Denies loss of appetite, Denies nausea, Denies vomiting Genitourinary: Reports nocturia, Denies dysuria Menstruation: Reports postmenopausal Musculoskeletal: Reports gait dysfunction, Reports muscle weakness Musculoskeletal: absent: ankle pain, ankle stiffness, ankle swelling, elbow pain, elbow stiffness, elbow swelling, foot pain, foot stiffness, foot swelling, hand pain, hand stiffness, hand swelling, hip pain, hip stiffness, hip swelling, knee pain, knee stiffness, knee swelling, shoulder pain, shoulder stiffness, shoulder swelling, wrist pain, wrist stiffness, wrist swelling Integumentary: Denies pruritus, Denies rash Neurological: Denies numbness, Denies weakness Psychiatric: Reports anxiety, Denies depression Endocrine: Denies fatigue, Denies weight change Past Medical History Past Medical History: Atrial Fibrillation, Cancer, GERD/Reflux, GI Bleed, Hyperlipidemia Additional Past Medical History / Comment(s): Pt had recent admission to [facility] with diverticulitis, lower GI bleed with transfusions, Afib and was in ICU. Other hx: Afib pt states which was "transient" about a year ago, L breast cancer with surgery, gastric ulcers in past, chronic back pain, constipation from norco, UTI, recently diagnosed with low iron. History of Any Multi-Drug Resistant Organisms: VRE Date of last positivie culture/infection: 05/16/19 MDRO Source:: Urine Past Surgical History: Appendectomy, Back Surgery, Breast Surgery, Cholecystectomy, Hysterectomy, Joint Replacement Additional Past Surgical History / Comment(s): Low back surgery, L breast mastectomy, EGD, colonoscopy, R total knee arthroplasty, robotic surgery at [facility] for biliary stone/biliary stent since removed. Past Anesthesia/Blood Transfusion Reactions: No Reported Reaction Additional Past Anesthesia/Blood Transfusion Reaction / Comment(s): Pt recently received blood without reaction. Past Psychological History: Anxiety Smoking Status: Former smoker Past Alcohol Use History: None Reported Past Drug Use History: None Reported - Past Family History Mother Family Medical History: Congestive Heart Failure (CHF), Coronary Artery Disease (CAD) (Mother at age of 75 from CAD and CHF.) Additional Family Medical History / Comment(s): Mother was healthy Father Family Medical History: Chest Pain / Angina, Diabetes Mellitus (Father in his 80s from diabetes mellitus type 2) Additional Family Medical History / Comment(s): Bone cancer Brother(s) Family Medical History: Congestive Heart Failure (CHF), Coronary Artery Disease (CAD) Son(s) Family Medical History: No Reported History (Patient has 2 sons one of them is healthy other one pass from brain hemorrhage.) Daughter(s) Family Medical History: No Reported History (Patient has one daughter no major medical problems.) Medications and Allergies Home Medications Medication Instructions Recorded Confirmed Type Acetaminophen Tab [Tylenol] 650 mg PO Q6HR PRN 05/07/19 05/19/19 History Baclofen [Lioresal] 5 mg PO TID PRN 05/07/19 05/19/19 History Cefuroxime Axetil [Ceftin] 500 mg PO BID 05/07/19 05/19/19 History Clobetasol Propionate [Temovate 1 applic TOPICAL BID 05/07/19 05/19/19 History 0.05% Cream] Cyanocobalamin (Vitamin B-12) 1,000 mcg PO DAILY 05/07/19 05/19/19 History [Vitamin B-12] Ferrous Sulfate [Iron (65 MG 325 mg PO DAILY 05/07/19 05/19/19 History Elemental)] HYDROcodone/APAP 5-325MG [[place] 1 tab PO Q6H PRN 05/07/19 05/19/19 History 5-325] LORazepam [Ativan] 1 mg PO DAILY PRN 05/07/19 05/19/19 History Omeprazole 20 mg PO BID 05/07/19 05/19/19 History Sennosides [Senna] 8.6 mg PO BID 05/07/19 05/19/19 History Simvastatin [Zocor] 20 mg PO HS 05/07/19 05/19/19 History Flecainide [Tambocor] 50 mg PO Q12HR #60 tab 05/12/19 05/19/19 Rx Fluticasone Nasal [place] [Flonase 2 spray EA NOSTRIL DAILY spr 05/12/19 05/19/19 Rx Nasal [place]] Lidocaine 5% Patch [Lidoderm 5% 1 patch TOPICAL DAILY patch 05/12/19 05/19/19 Rx Patch] Metoprolol Tartrate [Lopressor] 25 mg PO BID #0 05/12/19 05/19/19 Rx Allergies Allergy/AdvReac Type Severity Reaction Status Date / Time aspirin Allergy Unknown Verified 05/19/19 19:31 codeine Allergy Unknown Verified 05/19/19 19:31 nalbuphine [From Nubain] Allergy Unknown Verified 05/19/19 19:31 hydromorphone [From Dilaudid] AdvReac Confusion Verified 05/19/19 19:31 Physical Exam Vitals: Vital Signs Temp Pulse Resp BP Pulse Ox 05/19/19 20:30 69 18 129/72 99 05/19/19 17:06 98.2 F 56 L 18 164/64 98 Intake and Output 05/19/19 05/19/19 05/19/19 06:59 14:59 22:59 Other: Weight 58.967 kg - Constitutional General appearance: average body habitus, mild distress - EENT Eyes: anicteric sclerae, EOMI, PERRLA, no ptosis, no scleral icterus, normal appearance ENT: hard of hearing, NA/AT, normal oropharynx, thrush Ears: bilateral: normal - Neck Neck: no lymphadenopathy, normal ROM, no rigidity, no stridor, no thyromegaly Carotids: bilateral: upstroke normal Thyroid: bilateral: normal size - Respiratory Respiratory: bilateral: diminished, negative: dullness, rales, rhonchi, wheezing, prolonged expiration - Cardiovascular Rhythm: regular Heart sounds: normal: S1, S2 Abnormal Heart Sounds: systolic murmur, no S3 Gallop, no S4 Gallop - Gastrointestinal General gastrointestinal: normal bowel sounds, soft, no splenomegaly, no tenderness, no umbilical hernia, no ventral hernia - Integumentary Integumentary: normal, normal turgor - Neurologic Neurologic: CNII-XII intact - Musculoskeletal Musculoskeletal: gait normal, generalized weakness, strength equal bilaterally - Psychiatric Psychiatric: A&O x's 3, appropriate affect, intact judgment & insight Results CBC & Chem 7: 05/20/19 07:49 05/20/19 07:49 Labs: Abnormal Lab Results - Last 24 Hours (Table) 05/19/19 05/19/19 05/19/19 Range/Units 18:57 18:57 18:57 RBC 3.17 L (3.80-5.40) m/uL Hgb 10.2 L (11.4-16.0) gm/dL Hct 32.2 L (34.0-46.0) % MCV 101.5 H (80.0-100.0) fL RDW 21.0 H (11.5-15.5) % Lymphocytes # (Manual) 0.60 L (1.0-4.8) k/uL Macrocytosis Marked A APTT 19.1 L (22.0-30.0) sec Total Protein 5.8 L (6.3-8.2) g/dL Albumin 2.9 L (3.5-5.0) g/dL Thrombosis Risk Factor Assmnt - DVT/VTE Prophylaxis DVT/VTE Prophylaxis: Pharmacologic Prophylaxis ordered, Mechanical Prophylaxis ordered Assessment and Plan Assessment: Assessment and plan: 1. VRE UTI. Continue IV Cubicin, consult ID, midline to be placed, patient can be transferred to [facility] when bed becomes available. VRE isolation 2. Acute blood loss anemia continue to monitor the patient's CBC continue iron 325 mg orally once every day. 3. Recent history of diverticulitis post treatment. 4. Generalized weakness. Physical therapy evaluation ECF placement. 5. Paroxysmal atrial flutter ablation. Continue patient on Tambocor 50 mg orally twice every day, metoprolol 25 mg orally twice every day, patient is currently on aspirin 81 mg once every day as she declined anticoagulation at thi s time due to recent GI bleed 6. GERD. Continue with omeprazole 20 mg orally twice every day. 7. Hyperlipemia. Continue simvastatin 20 mg orally at bedtime. 8. Anxiety disorder. Continue Ativan 1 mg orally twice every day as needed. 9. History of breast cancer. Currently in remission. 10. DVT prophylaxis. Heparin 5000 units subcutaneously every 12 hours. 11. GI prophylaxis. Currently appetite 12. Admit to inpatient. Estimated length of stay 2 midnights. 13. Patient is full code.
--- NOTE | 2019-05-20 14:08 | P.PN ---
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 with a previous medical history significant for atrial fibrillation, GERD, left breast cancer status post surgery, history of osteoarthritis, joint disease of the lumbar spine, patient was hospitalized recently in [facility] after she was admitted for prolonged hospital stay due to acute diverticulitis even though her computed tomography scan of the abdomen and pelvis was negative for acute issues, she was started on IV anabiotic in subsequent she was switched to oral antibiotic and the patient was admitted to [facility] recently with atrial fibrillation with rapid ventricular response she was started on flecainide 50 mg orally twice every day she was not placed on anticoagulation because of the recent risk of GI bleed when she was in the other hospital and she was kept on aspirin 81 mg once every day knowing that the risk of stroke is extremely high at this time, patient was discharged on metoprolol 25 mg twice ev ning day and flecainide 50 mg orally twice every day and she went home apparently she was brought into the ER on the of this month due to generalized weakness and had a urinalysis that time that were sent for culture and the culture came back positive for VRE and her primary care physician sent her back to the ER for admission and Sunday consultation and midline placement for IV antibiotic. 05/20: Dr. Skelton is on consult for VRE urinary tract infection. Daughter states that the patient is last week since she has been on IV antibiotics. Consult will be placed for social work regarding discharge to [facility] which we are planning for tomorrow. Case management has been updated. Midline has been ordered. PT and OT ordered. Repeat lab work reveals white count of 5.4, hemoglobin 10. Blood sugar 73, creatinine 0.52, albumin 2.8. Patient has been afebrile, heart rate 58, blood pressure 149/57, pulse ox 96% on room air. Objective - Vital Signs Vital signs: Vital Signs Temp 97.8 F 05/20/19 07:00 Pulse 58 L 05/20/19 07:00 Resp 18 05/20/19 07:00 BP 149/57 05/20/19 07:00 Pulse Ox 96 05/20/19 07:00 Intake & Output 05/19/19 05/20/19 05/20/19 18:59 06:59 18:59 Intake Total 0 Balance 0 Weight 58.967 kg Intake: Oral 0 Other: # Voids 4 - Exam Review of Systems Constitutional: Reports anorexia, Reports chronic pain, Reports fatigue, Reports lethargy, Reports weakness Eyes: denies blurred vision, denies bulging eye, denies decreased vision Ears: bilateral: decreased hearing Ears, nose, mouth and throat: Denies dysphagia, Denies neck lump, Denies swelling in throat, Denies sore throat Breasts: left: as per HPI Cardiovascular: Denies chest pain, Denies decreased exercise tolerance, Denies dyspnea on exertion, Denies leg edema, Denies rapid heart beat, Denies shortness of breath, Denies syncope Respiratory: Denies congestion, Denies cough with sputum, Denies home oxygen, Denies sleep apnea, Denies snoring, Denies wheezing Gastrointestinal: Denies abdominal pain, Denies belching, Denies change in bowel habits, Denies heartburn, Denies loss of appetite, Denies nausea, Denies vomiting Genitourinary: Reports nocturia, Denies dysuria Menstruation: Reports postmenopausal Musculoskeletal: Reports gait dysfunction, Reports muscle weakness Musculoskeletal: absent: ankle pain, ankle stiffness, ankle swelling, elbow pain, elbow stiffness, elbow swelling, foot pain, foot stiffness, foot swelling, hand pain, hand stiffness, hand swelling, hip pain, hip stiffness, hip swelling, knee pain, knee stiffness, knee swelling, shoulder pain, shoulder stiffness, shoulder swelling, wrist pain, wrist stiffness, wrist swelling Integumentary: Denies pruritus, Denies rash Neurological: Denies numbness, Denies weakness Psychiatric: Reports anxiety, Denies depression Endocrine: Reports fatigue, Denies weight change - Constitutional General appearance: average body habitus, no distress - EENT Eyes: anicteric sclerae, EOMI, PERRLA, no ptosis, no scleral icterus, normal appearance ENT: hard of hearing, NA/AT, normal oropharynx, thrush Ears: bilateral: normal - Neck Neck: no lymphadenopathy, normal ROM, no rigidity, no stridor, no thyromegaly Carotids: bilateral: upstroke normal Thyroid: bilateral: normal size - Respiratory Respiratory: bilateral: diminished, negative: dullness, rales, rhonchi, wheezing, prolonged expiration - Cardiovascular Rhythm: regular Heart sounds: normal: S1, S2 Abnormal Heart Sounds: systolic murmur, no S3 Gallop, no S4 Gallop - Gastrointestinal General gastrointestinal: normal bowel sounds, soft, no splenomegaly, no tenderness, no umbilical hernia, no ventral hernia - Integumentary Integumentary: normal, normal turgor - Neurologic Neurologic: CNII-XII intact - Musculoskeletal Musculoskeletal: gait normal, generalized weakness, strength equal bilaterally - Psychiatric Psychiatric: A&O x's 3, appropriate affect, intact judgment & insight - Labs CBC & Chem 7: 05/20/19 07:49 05/20/19 07:49 Labs: Abnormal Lab Results - Last 24 Hours (Table) 05/19/19 05/19/19 05/19/19 Range/Units 18:57 18:57 18:57 RBC 3.17 L (3.80-5.40) m/uL Hgb 10.2 L (11.4-16.0) gm/dL Hct 32.2 L (34.0-46.0) % MCV 101.5 H (80.0-100.0) fL RDW 21.0 H (11.5-15.5) % Lymphocytes # (Manual) 0.60 L (1.0-4.8) k/uL Macrocytosis Marked A APTT 19.1 L (22.0-30.0) sec Chloride (98-107) mmol/L Glucose (74-99) mg/dL Total Protein 5.8 L (6.3-8.2) g/dL Albumin 2.9 L (3.5-5.0) g/dL 05/20/19 05/20/19 Range/Units 07:49 07:49 RBC 3.06 L (3.80-5.40) m/uL Hgb 10.0 L (11.4-16.0) gm/dL Hct 31.3 L (34.0-46.0) % MCV 102.4 H (80.0-100.0) fL RDW 20.7 H (11.5-15.5) % Lymphocytes # (Manual) (1.0-4.8) k/uL Macrocytosis Marked A APTT (22.0-30.0) sec Chloride 109 H (98-107) mmol/L Glucose 73 L (74-99) mg/dL Total Protein 5.8 L (6.3-8.2) g/dL Albumin 2.8 L (3.5-5.0) g/dL Assessment and Plan Plan: 1. VRE UTI. Continue IV Cubicin, consult ID, midline to be placed, patient can be transferred to [facility] when bed becomes available. VRE isolation 2. Acute blood loss anemia continue to monitor the patient's CBC continue iron 325 mg orally once every day. 3. Recent history of diverticulitis post treatment. 4. Generalized weakness. Physical therapy evaluation ECF placement. 5. Paroxysmal atrial flutter. Continue patient on Tambocor 50 mg orally twice every day, metoprolol 25 mg orally twice every day, patient is currently on aspirin 81 mg once every day as she declined anticoagulation at this time due to recent GI bleed 6. GERD. Continue with omeprazole 20 mg orally twice every day. 7. Hyperlipemia. Continue simvastatin 20 mg orally at bedtime. 8. Generalized anxiety disorder. Continue Ativan 1 mg orally twice every day as needed. 9. History of breast cancer. Currently in remission. 10. DVT prophylaxis. Heparin 5000 units subcutaneously every 12 hours. 11. GI prophylaxis. Currently appetite 12. Patient is full code. Discharge plan: [facility] on Sunday Impression and plan of care have been directed as dictated by the signing physician. Brandie Ernandez nurse practitioner acting as scribe for signing physician.
[2019-05-20 14:13] VITALS: BMI 26.2
[2019-05-20] MEDS: LINEZOLID 600 MG TAB PO SCH (20:51)
[2019-05-20] MEDS ORDERED: LORazepam 1 MG TAB PO SCH (21:00)
--- NOTE | 2019-05-20 23:57 | P.CONS ---
History of Present Illness - Reason for Consult Consult date: 05/20/19 VRE urinary tract infection Requesting physician: Joseline Jin - Chief Complaint Weakness and tiredness and urinary burning occasionally x few days - History of Present Illness Patient is 84 year old female with recent multiple admissions to [facility] with previous episodes of severe diverticulitis and also have A. fib with RVR patient did have symptoms of generalized weakness no energy and did have outpatient urine culture completed by primary care physician within the culture can be finalized with VRE yesterday for the patient was advised to go to the hospital for IV antibiotic therapy,, the patient denies high-grade fever however did have some occasional chills patient did have occasional burning of urine but denies having any urgency frequency suprapubic or flank pain no nausea or vomiting or any diarrhea the patient did have a normal white count and no fever was recorded patient was started on daptomycin admitted to the hospital infectious disease was consulted for further recommendation regarding antibiotic therapy Review of Systems Positive points has been mentioned in HPI rest of the systems are negative Past Medical History Past Medical History: Atrial Fibrillation, Cancer, GERD/Reflux, GI Bleed, Hyperlipidemia Additional Past Medical History / Comment(s): Pt had recent admission to [facility] with diverticulitis, lower GI bleed with transfusions, Afib and was in ICU. Other hx: Afib pt states which was "transient" about a year ago, L breast cancer with surgery, gastric ulcers in past, chronic back pain, constipation from norco, UTI, recently diagnosed with low iron. History of Any Multi-Drug Resistant Organisms: VRE Year Discovered:: 05/16/19 MDRO Source:: Urine Past Surgical History: Appendectomy, Back Surgery, Breast Surgery, Cholecystectomy, Hysterectomy, Joint Replacement Additional Past Surgical History / Comment(s): Low back surgery, L breast mastectomy, EGD, colonoscopy, R total knee arthroplasty, robotic surgery at [facility] for biliary stone/biliary stent since removed. Past Anesthesia/Blood Transfusion Reactions: No Reported Reaction Additional Past Anesthesia/Blood Transfusion Reaction / Comm: Pt recently received blood without reaction. Past Psychological History: Anxiety Smoking Status: Former smoker Past Alcohol Use History: None Reported Past Drug Use History: None Reported - Past Family History Mother Family Medical History: Congestive Heart Failure (CHF), Coronary Artery Disease (CAD) (Mother at age of 75 from CAD and CHF.) Additional Family Medical History / Comment(s): Mother was healthy Father Family Medical History: Chest Pain / Angina, Diabetes Mellitus (Father in his 80s from diabetes mellitus type 2) Additional Family Medical History / Comment(s): Bone cancer Brother(s) Family Medical History: Congestive Heart Failure (CHF), Coronary Artery Disease (CAD) Son(s) Family Medical History: No Reported History (Patient has 2 sons one of them is healthy other one pass from brain hemorrhage.) Daughter(s) Family Medical History: No Reported History (Patient has one daughter no major medical problems.) Medications and Allergies Home Medications Medication Instructions Recorded Confirmed Type Acetaminophen Tab [Tylenol] 650 mg PO Q6HR PRN 05/07/19 05/19/19 History Baclofen [Lioresal] 5 mg PO TID PRN 05/07/19 05/19/19 History Cefuroxime Axetil [Ceftin] 500 mg PO BID 05/07/19 05/19/19 History Clobetasol Propionate [Temovate 1 applic TOPICAL BID 05/07/19 05/19/19 History 0.05% Cream] Cyanocobalamin (Vitamin B-12) 1,000 mcg PO DAILY 05/07/19 05/19/19 History [Vitamin B-12] Ferrous Sulfate [Iron (65 MG 325 mg PO DAILY 05/07/19 05/19/19 History Elemental)] HYDROcodone/APAP 5-325MG [[place] 1 tab PO Q6H PRN 05/07/19 05/19/19 History 5-325] LORazepam [Ativan] 1 mg PO DAILY PRN 05/07/19 05/19/19 History Omeprazole 20 mg PO BID 05/07/19 05/19/19 History Sennosides [Senna] 8.6 mg PO BID 05/07/19 05/19/19 History Simvastatin [Zocor] 20 mg PO HS 05/07/19 05/19/19 History Flecainide [Tambocor] 50 mg PO Q12HR #60 tab 05/12/19 05/19/19 Rx Fluticasone Nasal [place] [Flonase 2 spray EA NOSTRIL DAILY spr 05/12/19 05/19/19 Rx Nasal [place]] Lidocaine 5% Patch [Lidoderm 5% 1 patch TOPICAL DAILY patch 05/12/19 05/19/19 Rx Patch] Metoprolol Tartrate [Lopressor] 25 mg PO BID #0 05/12/19 05/19/19 Rx Linezolid [Zyvox] 600 mg PO Q12H #14 tab 05/20/19 Rx Allergies Allergy/AdvReac Type Severity Reaction Status Date / Time aspirin Allergy Unknown Verified 05/19/19 19:31 codeine Allergy Unknown Verified 05/19/19 19:31 nalbuphine [From Nubain] Allergy Unknown Verified 05/19/19 19:31 hydromorphone [From Dilaudid] AdvReac Confusion Verified 05/19/19 19:31 Physical Exam Vitals: Vital Signs Temp Pulse Pulse Resp BP BP Pulse Ox 05/20/19 07:00 97.8 F 58 L 18 149/57 96 05/19/19 22:00 96.9 F L 58 L 18 150/62 99 05/19/19 20:30 69 18 129/72 99 05/19/19 17:06 98.2 F 56 L 18 164/64 98 Intake and Output 05/19/19 05/20/19 05/20/19 22:59 06:59 14:59 Intake Total 0 0 Balance 0 0 Intake: Oral 0 0 Other: Voiding Method Bedside Commode # Voids 3 4 Weight 58.967 kg 58.967 kg GENERAL DESCRIPTION: An elderly female lying in bed, no distress. No tachypnea or accessory muscle of respiration use. HEENT: Shows Pallor , no scleral icterus. Oral mucous membrane is dry. No pharyngeal erythema or thrush NECK: Trachea central, no thyromegaly. LUNGS: Unlabored breathing. Clear to auscultation anteriorly. No wheeze or crackle. HEART: S1, S2, regular rate and rhythm. No loud murmur ABDOMEN: Soft, no tenderness , guarding or rigidity, no organomegaly EXTREMITIES: No edema of feet. SKIN: No rash, no masses palpable. NEUROLOGICAL: The patient is awake, alert, oriented x3, mood and affect normal. Results CBC & Chem 7: 05/20/19 07:49 05/20/19 07:49 Labs: Abnormal Lab Results - Last 24 Hours (Table) 05/19/19 05/19/19 05/19/19 Range/Units 18:57 18:57 18:57 RBC 3.17 L (3.80-5.40) m/uL Hgb 10.2 L (11.4-16.0) gm/dL Hct 32.2 L (34.0-46.0) % MCV 101.5 H (80.0-100.0) fL RDW 21.0 H (11.5-15.5) % Lymphocytes # (1.0-4.8) k/uL Lymphocytes # (Manual) 0.60 L (1.0-4.8) k/uL Macrocytosis Marked A APTT 19.1 L (22.0-30.0) sec Chloride (98-107) mmol/L Glucose (74-99) mg/dL Total Protein 5.8 L (6.3-8.2) g/dL Albumin 2.9 L (3.5-5.0) g/dL 05/20/19 05/20/19 Range/Units 07:49 07:49 RBC 3.06 L (3.80-5.40) m/uL Hgb 10.0 L (11.4-16.0) gm/dL Hct 31.3 L (34.0-46.0) % MCV 102.4 H (80.0-100.0) fL RDW 20.7 H (11.5-15.5) % Lymphocytes # 0.9 L (1.0-4.8) k/uL Lymphocytes # (Manual) (1.0-4.8) k/uL Macrocytosis Marked A APTT (22.0-30.0) sec Chloride 109 H (98-107) mmol/L Glucose 73 L (74-99) mg/dL Total Protein 5.8 L (6.3-8.2) g/dL Albumin 2.8 L (3.5-5.0) g/dL Assessment and Plan Assessment: 1-patient presented to hospital with generalized weakness no energy increased fatigability in this patient who did have a urinary burning with a positive UA and urine culture done recently in the outpatient setting did shows VRE more than 100,000 colonies which unfortunately is penicillin resistant, likely representing a symptomatic urinary tract infection and possible cystitis clinical doubt deep infection has patient currently doesn't look toxic no fever or elevated white count 2-patient has lost IV access and is refusing to place another IV (1) VRE (vancomycin-resistant Enterococci) infection Current Visit: Yes Status: Acute Code(s): A49.1 - STREPTOCOCCAL INFECTION, UNSPECIFIED SITE; Z16.21 - RESISTANCE TO VANCOMYCIN SNOMED Code(s): 219602353 (2) Urinary tract infection Current Visit: Yes Status: Acute Code(s): N39.0 - URINARY TRACT INFECTION, SITE NOT SPECIFIED SNOMED Code(s): 91270741 Plan: 1-discontinue the daptomycin as no IV access 2-Zyvox 600 mg by mouth twice daily for another 5- days to finish a course of therapy 3-gentle IV fluid we will follow on clinical condition and culture to further adjust medication if needed Thank you for this consultation will follow this patient along with you Time with Patient: Greater than 30
[2019-05-21] MEDS: LORazepam 1 MG TAB PO PRN ×2 (00:45→13:27)
[2019-05-21] MEDS: SENNOSIDES 8.6 MG TAB PO SCH (08:19)
[2019-05-21] MEDS: FERROUS SULFATE 325 MG TAB PO SCH (08:19)
[2019-05-21] MEDS: PANTOPRAZOLE 40 MG TABLET PO SCH (08:20)
[2019-05-21] MEDS: CYANOCOBALAMIN 500 MCG TAB PO SCH (08:20)
[2019-05-21] MEDS: CLOBETASOL PROP 0.05% CR 15GM TOPICAL SCH (08:20)
[2019-05-21] MEDS: FLUTICASONE 50MCG/SPRAY NASAL 16GM EA NOSTRIL SCH (08:20)
[2019-05-21] MEDS: METOPROLOL TARTRATE 25 MG TAB PO SCH (08:20)
[2019-05-21] MEDS: LIDOCAINE 5% PATCH TOPICAL SCH (08:21)
[2019-05-21] MEDS: FLECAINIDE 50 MG TAB PO SCH (08:21)
[2019-05-21] MEDS: LINEZOLID 600 MG TAB PO SCH (08:22)
[2019-05-21] MEDS: NYSTATIN 100,000 UNIT/ML SUSP 500,000 UNIT/5 ML CUP PO SCH ×2 (08:22→13:27)
[2019-05-21] MEDS: HYDROcodone/APAP 5-325MG 1 EACH TAB PO PRN ×2 (08:24→14:33)
[2019-05-21 08:40] VITALS: BP 153/53; PULSE 60; RESP 18; TEMP 97.9
--- NOTE | 2019-05-21 10:40 | P.DS ---
Providers Date of admission: 05/19/19 20:14 Expected date of discharge: 05/21/19 Attending physician: Joseline Jin Consults: 05/20/19 11:51 Consult Physician Routine Consulting Provider: Keegan Skelton Consult Reason/Comments: UTI Do you want consulting provider notified?: Yes Primary care physician: Gideon Kvng [facility] Course: 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 with a previous medical history significant for atrial fibrillation, GERD, left breast cancer status post surgery, history of osteoarthritis, joint disease of the lumbar spine, patient was hospitalized recently in [facility] after she was admitted for prolonged hospital stay due to acute diverticulitis even though her computed tomography scan of the abdomen and pelvis was negative for acute issues, she was started on IV anabiotic in subsequent she was switched to oral antibiotic and the patient was admitted to [facility] recently with atrial fibrillation with rapid ventricular response she was started on flecainide 50 mg orally twice every day she was not placed on anticoagulation because of the recent risk of GI bleed when she was in the other hospital and she was kept on aspirin 81 mg once every day knowing that the risk of stroke is extremely high at this time, patient was discharged on metoprolol 25 mg twice every day and flecainide 50 mg orally twice every day and she went home apparently she was brought into the ER on the of this month due to generalized weakness and had a urinalysis that time that were sent for culture and the culture came back positive for VRE and her primary care physician sent her back to the ER for admission and Sunday consultation and midline placement for IV antibiotic. 05/20: Dr. Skelton is on consult for VRE urinary tract infection. Daughter states that the patient is last week since she has been on IV antibiotics. Consult will be placed for social work regarding discharge to [facility] which we are planning for tomorrow. Case management has been updated. Midline has been ordered. PT and OT ordered. Repeat lab work reveals white count of 5.4, hemoglobin 10. Blood sugar 73, creatinine 0.52, albumin 2.8. Patient has been afebrile, heart rate 58, blood pressure 149/57, pulse ox 96% on room air. 05/21: Patient denies any new complaints. She states she is eating well, she had a bowel movement yesterday. She is working with physical therapy. She states that she believes her strength is improving. Patient is being repaired for discharge to [facility] today. Discussed case with [facility] and are cheapest option for antibiotics would be IV Zyvox. Midline to be placed today. Patient will continue IV Zyvox for 7 days. Patient will be discharged to [facility] once midline is placed and arrangements are completed. Discharge diagnoses: 1. VRE UTI. 2. Acute blood loss anemia 3. Recent history of diverticulitis post treatment. 4. Generalized weakness. 5. Paroxysmal atrial flutter. 6. GERD. 7. Hyperlipemia. 8. Generalized anxiety disorder. 9. History of breast cancer. Currently in remission. Discharge plan: [facility] on Sunday under the care of Dr. Calderon Impression and plan of care have been directed as dictated by the signing physician. Brandie Ernandez nurse practitioner acting as scribe for signing physician. Patient Condition at Discharge: Good Plan - Discharge Summary New Discharge Prescriptions: New Nystatin 100,000 Unit/ml Susp [Mycostatin Oral Susp] 500,000 unit PO QID #28 cup Linezolid [Zyvox] 600 mg IVPB Q12HR #14 bag Continue Cyanocobalamin (Vitamin B-12) [Vitamin B-12] 1,000 mcg PO DAILY Sennosides [Senna] 8.6 mg PO BID Ferrous Sulfate [Iron (65 MG Elemental)] 325 mg PO DAILY Acetaminophen Tab [Tylenol] 650 mg PO Q6HR PRN PRN Reason: Pain Clobetasol Propionate [Temovate 0.05% Cream] 1 applic TOPICAL BID Simvastatin [Zocor] 20 mg PO HS Omeprazole 20 mg PO BID Baclofen [Lioresal] 5 mg PO TID PRN PRN Reason: BACK PAIN Fluticasone Nasal [place] [Flonase Nasal [place]] 2 spray EA NOSTRIL DAILY spr Lidocaine 5% Patch [Lidoderm 5% Patch] 1 patch TOPICAL DAILY patch Flecainide [Tambocor] 50 mg PO Q12HR #60 tab Metoprolol Tartrate [Lopressor] 25 mg PO BID #0 HYDROcodone/APAP 5-325MG [[place] 5-325] 1 tab PO Q6H PRN #12 tab PRN Reason: BACK PAIN Changed LORazepam [Ativan] 1 mg PO BID #6 tab Discontinued Cefuroxime Axetil [Ceftin] 500 mg PO BID Discharge Medication List Acetaminophen Tab [Tylenol] 650 mg PO Q6HR PRN 05/07/19 [History] Baclofen [Lioresal] 5 mg PO TID PRN 05/07/19 [History] Clobetasol Propionate [Temovate 0.05% Cream] 1 applic TOPICAL BID 05/07/19 [History] Cyanocobalamin (Vitamin B-12) [Vitamin B-12] 1,000 mcg PO DAILY 05/07/19 [History] Ferrous Sulfate [Iron (65 MG Elemental)] 325 mg PO DAILY 05/07/19 [History] Omeprazole 20 mg PO BID 05/07/19 [History] Sennosides [Senna] 8.6 mg PO BID 05/07/19 [History] Simvastatin [Zocor] 20 mg PO HS 05/07/19 [History] Flecainide [Tambocor] 50 mg PO Q12HR #60 tab 05/12/19 [Rx] Fluticasone Nasal [place] [Flonase Nasal [place]] 2 spray EA NOSTRIL DAILY spr 05/12/19 [Rx] Lidocaine 5% Patch [Lidoderm 5% Patch] 1 patch TOPICAL DAILY patch 05/12/19 [Rx] Metoprolol Tartrate [Lopressor] 25 mg PO BID #0 05/12/19 [Rx] HYDROcodone/APAP 5-325MG [[place] 5-325] 1 tab PO Q6H PRN #12 tab 05/21/19 [Rx] LORazepam [Ativan] 1 mg PO BID #6 tab 05/21/19 [Rx] Linezolid [Zyvox] 600 mg IVPB Q12HR #14 bag 05/21/19 [Rx] Nystatin 100,000 Unit/ml Susp [Mycostatin Oral Susp] 500,000 unit PO QID #28 cup 05/21/19 [Rx] Follow up Appointment(s)/Referral(s): Gideon Calderon MD [Primary Care Provider] - 1 Week (at [facility]) Keegan Skelton MD [STAFF PHYSICIAN] - 2 Weeks Activity/Diet/Wound Care/Special Instructions: Repeat UA and culture when antibiotics are completed. Discharge Disposition: TRANSFER TO SNF/ECF
--- NOTE | 2019-05-21 14:34 | PN ---
PROGRESS NOTE DATE OF SERVICE: 05/21/2019 REASON FOR FOLLOWUP: urinary tract infection. INTERVAL HISTORY: The patient is currently afebrile. Patient has been breathing comfortably. The patient denies having any chest pain or any cough. No nausea, no vomiting. No abdominal pain, no diarrhea. PHYSICAL EXAMINATION: Blood pressure 153/53 with a pulse of 60, temperature 97.9. She is 93% on room air. General description is an an elderly female, lying in bed in no distress. RESPIRATORY SYSTEM: Unlabored breathing, clear to auscultation anteriorly. HEART: S1, S2. Regular rate and rhythm. ABDOMEN: Soft, no tenderness. LABS: Hemoglobin is 10 with white count 5.4, BUN of 9, creatinine 0.52. Blood culture has been negative. No urine cultures were done this admission. DIAGNOSTIC IMPRESSION AND PLAN: Patient with symptom of weakness from urinary burning in the outpatient setting. Culture positive for VRE, which is penicillin resistant, symptoms seemed to be clinically responsive to oral Levaquin to continue for another 5 days to finish a course of therapy and continue supportive care. MMODL / IJN: [id number] /
== END 2019-05-21 14:38 | DRG 690 ==
LOC: EC 16:56 → 4MS4W 20:14
PROVIDERS: ADMIT Internal Medicine; ATTEND Internal Medicine
PROC: 05HD33Z Insertion of Infusion Device into Right Cephalic Vein, Percutaneous Approach (ICD-10-PCS; principal; 2019-05-21 13:00)
DX: N39.0 Urinary tract infection, site not specified (principal); D62 Acute posthemorrhagic anemia; I48.92 Unspecified atrial flutter; Z16.11 Resistance to penicillins; Z16.21 Resistance to vancomycin; E78.5 Hyperlipidemia, unspecified; F41.1 Generalized anxiety disorder; G89.29 Other chronic pain; I48.91 Unspecified atrial fibrillation; K21.9 Gastro-esophageal reflux disease without esophagitis; Z79.82 Long term (current) use of aspirin; B95.2 Enterococcus as the cause of diseases classified elsewhere; Z79.899 Other long term (current) drug therapy; Z82.49 Family history of ischemic heart disease and other diseases of the circulatory system; Z83.3 Family history of diabetes mellitus; Z85.3 Personal history of malignant neoplasm of breast; Z87.11 Personal history of peptic ulcer disease; Z87.891 Personal history of nicotine dependence; Z90.12 Acquired absence of left breast and nipple; Z90.710 Acquired absence of both cervix and uterus; Z96.651 Presence of right artificial knee joint; M51.36 Other intervertebral disc degeneration, lumbar region; Z88.6 Allergy status to analgesic agent; Z88.5 Allergy status to narcotic agent; R26.9 Unspecified abnormalities of gait and mobility; Z87.440 Personal history of urinary (tract) infections; M19.90 Unspecified osteoarthritis, unspecified site; Z79.2 Long term (current) use of antibiotics
CPT/HCPCS: 36410; 36415; 76937; 80053; 83605; 85025; 85610; 85730; 87040; 93005; 99285

== ENCOUNTER 2020-10-08 20:40 | Inpatient (IN) | payer MEDICARE, OTHER ==
--- NOTE | 2020-10-08 21:08 | ED ---
Abdominal Pain HPI - General Chief Complaint: Abdominal Pain Stated Complaint: Diarrhea,Rectal Pain Time Seen by Provider: 10/08/20 20:47 Source: patient Mode of arrival: wheelchair Limitations: no limitations - History of Present Illness Initial Comments: 85 year-old female patient presents to the emergency department today for evaluation of suprapubic discomfort and dysuria. Patient states that she was diagnosed with urinary tract infection by her physician. States she has been on 2 different antibiotics outpatient and has not had improvement in symptoms. She was initially started on Cefuroxime and then switched to Keflex. She has been taking the keflex for the last 2-3 days. She is reporting frequent and painful urination. She does report hematuria. Denies any nausea or vomiting. States she has not had a bowel movement for the last 2 days.denies any nausea or vomiting. Denies any flank pain. Denies any fever or chills. Patient denies any recent rash, cough, shortness of breath, chest pain, diarrhea, constipation, numbness, tingling, dizziness, weakness, headache, visual changes, or any other complaints. - Related Data Home Medications Medication Instructions Recorded Confirmed Cyanocobalamin (Vitamin B-12) 1,000 mcg PO DAILY 05/07/19 10/08/20 [Vitamin B-12] Simvastatin [Zocor] 20 mg PO HS 05/07/19 10/08/20 Biotin 10,000 mcg PO DAILY 10/08/20 10/08/20 Cephalexin [Keflex] 250 mg PO Q8HR 10/08/20 10/08/20 Ibuprofen [Motrin] 800 mg PO BID PRN 10/08/20 10/08/20 LORazepam [Ativan] 1 mg PO BID PRN 10/08/20 10/08/20 Metoprolol Tartrate [Lopressor] 50 mg PO BID 10/08/20 10/08/20 Multivitamins, Thera [Multivitamin 1 tab PO DAILY 10/08/20 10/08/20 (formulary)] Previous Rx's Medication Instructions Recorded Flecainide [Tambocor] 50 mg PO Q12HR #60 tab 05/12/19 Allergies Allergy/AdvReac Type Severity Reaction Status Date / Time aspirin Allergy Unknown Verified 10/08/20 21:51 codeine Allergy Unknown Verified 10/08/20 21:51 nalbuphine [From Nubain] Allergy Unknown Verified 10/08/20 21:51 hydromorphone [From Dilaudid] AdvReac Confusion Verified 10/08/20 21:51 Review of Systems ROS Statement: Those systems with pertinent positive or pertinent negative responses have been documented in the HPI. ROS Other: All systems not noted in ROS Statement are negative. Past Medical History Past Medical History: Atrial Fibrillation, Cancer, GERD/Reflux, GI Bleed, Hyperlipidemia Additional Past Medical History / Comment(s): Pt had recent admission to [facility] with diverticulitis, lower GI bleed with transfusions, Afib and was in ICU. Other hx: Afib pt states which was "transient" about a year ago, L breast cancer with surgery, gastric ulcers in past, chronic back pain, constipation from norco, UTI, recently diagnosed with low iron. History of Any Multi-Drug Resistant Organisms: VRE Date of last positivie culture/infection: 05/16/19 MDRO Source:: Urine Past Surgical History: Appendectomy, Back Surgery, Breast Surgery, Cholecystectomy, Hysterectomy, Joint Replacement Additional Past Surgical History / Comment(s): Low back surgery, L breast mastectomy, EGD, colonoscopy, R total knee arthroplasty, robotic surgery at [facility] for biliary stone/biliary stent since removed. Past Anesthesia/Blood Transfusion Reactions: No Reported Reaction Additional Past Anesthesia/Blood Transfusion Reaction / Comment(s): Pt recently received blood without reaction. Past Psychological History: Anxiety Smoking Status: Never smoker Past Alcohol Use History: None Reported Past Drug Use History: None Reported - Past Family History Mother Family Medical History: Congestive Heart Failure (CHF), Coronary Artery Disease (CAD) (Mother at age of 75 from CAD and CHF.) Additional Family Medical History / Comment(s): Mother was healthy Father Family Medical History: Chest Pain / Angina, Diabetes Mellitus (Father in his 80s from diabetes mellitus type 2) Additional Family Medical History / Comment(s): Bone cancer Brother(s) Family Medical History: Congestive Heart Failure (CHF), Coronary Artery Disease (CAD) Son(s) Family Medical History: No Reported History (Patient has 2 sons one of them is healthy other one pass from brain hemorrhage.) Daughter(s) Family Medical History: No Reported History (Patient has one daughter no major medical problems.) General Exam Limitations: no limitations General appearance: alert, in no apparent distress, other (this is a well- developed, well-nourished adult female patient in no acute distress.) Respiratory exam: Present: normal lung sounds bilaterally. Absent: respiratory distress, wheezes, rales, rhonchi, stridor Cardiovascular Exam: Present: regular rate, normal rhythm, normal heart sounds. Absent: systolic murmur, diastolic murmur, rubs, gallop, clicks GI/Abdominal exam: Present: soft, tenderness (suprapubic), normal bowel sounds. Absent: distended, guarding, rebound, rigid Back exam: Present: normal inspection. Absent: CVA tenderness (R), CVA tenderness (L) Neurological exam: Present: alert, oriented X3, CN II-XII intact Psychiatric exam: Present: normal affect, normal mood Skin exam: Present: warm, dry, intact, normal color. Absent: rash Course Vital Signs 10/08/20 10/09/20 20:42 00:36 Temperature 98.3 F 98 F Pulse Rate 63 66 Respiratory 18 20 Rate Blood Pressure 147/53 140/77 O2 Sat by Pulse 99 98 Oximetry Medical Decision Making - Medical Decision Making 85-year-old female patient presents to the emergency department today for evaluation of suprapubic discomfort and burning with urination. Patient was treated outpatient initially with cefuroxime then switched to Keflex. Patient is still having symptoms tonight states that her urine is dark in color. Physical examination reveals suprapubic tenderness. No CVA tenderness. No fever. Labs relatively unremarkable. 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 Given her history we will start gentimicin and admit for failed outpatient treatment. Dr. Sanders is accepting as we were not able to get in touch with Dr. Newell (covering for Dr. Calderon) despite multiple attempts. Case discussed with my attending Dr. Ramos. - Lab Data Result diagrams: 10/08/20 21:32 10/08/20 21:32 Lab Results 10/08/20 10/08/20 10/08/20 Range/Units 21:32 21:32 21:32 WBC 10.4 (3.8-10.6) k/uL RBC 2.82 L (3.80-5.40) m/uL Hgb 9.1 L (11.4-16.0) gm/dL Hct 29.0 L (34.0-46.0) % MCV 103.0 H (80.0-100.0) fL MCH 32.2 (25.0-35.0) pg MCHC 31.3 (31.0-37.0) g/dL RDW 17.1 H (11.5-15.5) % Plt Count 417 (150-450) k/uL MPV 7.7 Neutrophils % (Manual) 80 % Band Neuts % (Manual) 9 % Lymphocytes % (Manual) 6 % Monocytes % (Manual) 4 % Eosinophils % (Manual) 1 % Neutrophils # (Manual) 9.20 H (1.3-7.7) k/uL Lymphocytes # (Manual) 0.62 L (1.0-4.8) k/uL Monocytes # (Manual) 0.42 (0-1.0) k/uL Eosinophils # (Manual) 0.10 (0-0.7) k/uL Nucleated RBCs 1 H (0-0) /100 WBC Manual Slide Review Performed Toxic Granulation Present Toxic Vacuolation Present Hypochromasia Moderate Anisocytosis Slight Macrocytosis Moderate Sodium 138 (137-145) mmol/L Potassium 4.5 (3.5-5.1) mmol/L Chloride 112 H (98-107) mmol/L Carbon Dioxide 18 L (22-30) mmol/L Anion Gap 8 mmol/L BUN 23 H (7-17) mg/dL Creatinine 0.89 (0.52-1.04) mg/dL Est GFR (CKD-EPI)AfAm 68 (>60 ml/min/1.73 sqM) Est GFR (CKD-EPI)NonAf 59 (>60 ml/min/1.73 sqM) Glucose 100 H (74-99) mg/dL Plasma Lactic Acid Babar (0.7-2.0) mmol/L Calcium 9.1 (8.4-10.2) mg/dL Total Bilirubin 0.5 (0.2-1.3) mg/dL AST 30 (14-36) U/L ALT 11 (4-34) U/L Alkaline Phosphatase 68 (38-126) U/L Total Protein 6.7 (6.3-8.2) g/dL Albumin 3.3 L (3.5-5.0) g/dL Lipase 142 (23-300) U/L Urine Color Dark Brown Urine Appearance Turbid H (Clear) Urine pH (5.0-8.0) Ur Specific [place] (1.001-1.035) Urine Protein (Negative) Urine Glucose (UA) (Negative) Urine Ketones (Negative) Urine Blood (Negative) Urine Nitrite (Negative) Urine Bilirubin (Negative) Urine Urobilinogen (<2.0) mg/dL Ur Leukocyte Esterase (Negative) Urine RBC >182 H (0-5) /hpf Urine WBC >182 H (0-5) /hpf Urine WBC Clumps Many H (None) /hpf Ur Squamous Epith Cells (0-4) /hpf Urine Bacteria Many H (None) /hpf Urine Mucus Occasional H (None) /hpf 10/08/20 10/08/20 Range/Units 21:32 23:56 WBC (3.8-10.6) k/uL RBC (3.80-5.40) m/uL Hgb (11.4-16.0) gm/dL Hct (34.0-46.0) % MCV (80.0-100.0) fL MCH (25.0-35.0) pg MCHC (31.0-37.0) g/dL RDW (11.5-15.5) % Plt Count (150-450) k/uL MPV Neutrophils % (Manual) % Band Neuts % (Manual) % Lymphocytes % (Manual) % Monocytes % (Manual) % Eosinophils % (Manual) % Neutrophils # (Manual) (1.3-7.7) k/uL Lymphocytes # (Manual) (1.0-4.8) k/uL Monocytes # (Manual) (0-1.0) k/uL Eosinophils # (Manual) (0-0.7) k/uL Nucleated RBCs (0-0) /100 WBC Manual Slide Review Toxic Granulation Toxic Vacuolation Hypochromasia Anisocytosis Macrocytosis Sodium (137-145) mmol/L Potassium (3.5-5.1) mmol/L Chloride (98-107) mmol/L Carbon Dioxide (22-30) mmol/L Anion Gap mmol/L BUN (7-17) mg/dL Creatinine (0.52-1.04) mg/dL Est GFR (CKD-EPI)AfAm (>60 ml/min/1.73 sqM) Est GFR (CKD-EPI)NonAf (>60 ml/min/1.73 sqM) Glucose (74-99) mg/dL Plasma Lactic Acid Babar 1.5 (0.7-2.0) mmol/L Calcium (8.4-10.2) mg/dL Total Bilirubin (0.2-1.3) mg/dL AST (14-36) U/L ALT (4-34) U/L Alkaline Phosphatase (38-126) U/L Total Protein (6.3-8.2) g/dL Albumin (3.5-5.0) g/dL Lipase (23-300) U/L Urine Color Light Red Urine Appearance Turbid H (Clear) Urine pH 6.5 (5.0-8.0) Ur Specific [place] 1.016 (1.001-1.035) Urine Protein 2+ H (Negative) Urine Glucose (UA) Negative (Negative) Urine Ketones Negative (Negative) Urine Blood Large H (Negative) Urine Nitrite Negative (Negative) Urine Bilirubin Negative (Negative) Urine Urobilinogen <2.0 (<2.0) mg/dL Ur Leukocyte Esterase Large H (Negative) Urine RBC 57 H (0-5) /hpf Urine WBC >182 H (0-5) /hpf Urine WBC Clumps Many H (None) /hpf Ur Squamous Epith Cells 1 (0-4) /hpf Urine Bacteria Many H (None) /hpf Urine Mucus Rare H (None) /hpf - Radiology Data Radiology results: report reviewed, image reviewed KUB was obtained. Report reviewed in its entirety. Impression by Dr. Zapata shows nonacute abdomen. Disposition Clinical Impression: UTI (urinary tract infection), Failure of outpatient treatment Disposition: ADMITTED IP TO THIS [facility] Condition: Serious Referrals: Gideon Calderon MD [Primary Care Provider] - 1-2 days Decision to Admit Reason: Admit from EC Decision Date: 10/09/20 Decision Time: 00:03
[2020-10-08] MEDS ORDERED: SODIUM CHLORIDE 0.9% 500 ML 500 ML IV STA (21:10)
--- NOTE | 2020-10-08 21:54 | XR ---
EXAMINATION TYPE: XR KUB DATE OF EXAM: 10/08/2020 COMPARISON: NONE HISTORY: Abdominal pain TECHNIQUE: Single view upright FINDINGS: There is no sign of intestinal obstruction or pneumoperitoneum. Fecal pattern is normal. Th ere are clips from cholecystectomy. There is no evidence of a mass. IMPRESSION: Nonacute abdomen.
[2020-10-08 22:01] LABS: Albumin 3.3 g/dL (3.5-5.0); Calcium 9.1 mg/dL (8.4-10.2); Potassium 4.5 mmol/L (3.5-5.1); Total Bilirubin 0.5 mg/dL (0.2-1.3); Total Protein 6.7 g/dL (6.3-8.2)
[2020-10-08 22:11] LABS: Appearance,Urine Turbid (Clear); Color,Urine Dark Brown
[2020-10-08 22:12] LABS: Anisocytosis Slight; HGB 9.1 gm/dL (11.4-16.0); Hypochromasia Moderate; MCH 32.2 pg (25.0-35.0); MCHC 31.3 g/dL (31.0-37.0); Macrocytosis Moderate; Mean Platelet Volume 7.7; Platelet Count 417 k/uL (150-450); RBC 2.82 m/uL (3.80-5.40); RDW 17.1 % (11.5-15.5)
[2020-10-08 22:14] LABS: Bacteria,Urine Many /hpf; Mucus,Urine Occasional /hpf; RBC,Urine >182 /hpf (0-5); WBC,Urine >182 /hpf (0-5)
[2020-10-08 22:39] LABS: Band Neutrophils % 9 %; Monocytes # (M) 0.42 k/uL (0-1.0); Neutrophils % (M) 80 %; Nucleated Red Blood Cells 1 /100 WBC (0-0); Total Cells Counted 200
[2020-10-08 22:40] LABS: Lymphocytes # (M) 0.62 k/uL (1.0-4.8); Toxic Granulation Present; Toxic Vacuolation Present; WBC 10.4 k/uL (3.8-10.6)
[2020-10-08] MEDS ORDERED: ONDANSETRON 4 MG/2 ML VIAL IVP PRN (23:58)
[2020-10-08] MEDS ORDERED: NALOXONE 0.4 MG/ML 1 ML VIAL IV PRN (23:58)
[2020-10-09] MEDS ORDERED: GENTAMICIN 300 MG in SODIUM CHLORIDE 0.9% 100 ML IVPB ONE ×2
[2020-10-09 00:13] LABS: Appearance,Urine Turbid (Clear); Bacteria,Urine Many /hpf; Bilirubin,Urine Negative (Negative); Blood,Urine Large (Negative); Color,Urine Light Red; Glucose,Urine (UA) Negative (Negative); Ketones,Urine Negative (Negative); Leukocyte Esterase,Urine Large (Negative); Mucus,Urine Rare /hpf; Nitrite,Urine Negative (Negative); PH, Urine 6.5 (5.0-8.0); Protein,Urine 2+ (Negative); RBC,Urine 57 /hpf (0-5); Specific Gravity,Urine 1.016 (1.001-1.035); Squamous Epithelial Cell,Urine 1 /hpf (0-4); Urobilinogen,Urine <2.0 mg/dL (<2.0); WBC,Urine >182 /hpf (0-5)
[2020-10-09] MEDS ORDERED: DOCUSATE 283 MG/5 ML ENEMA RECTAL STA (00:28)
[2020-10-09] MEDS ORDERED: SENNOSIDES 8.6 MG TAB PO PRN (02:28)
[2020-10-09] MEDS: ACETAMINOPHEN TAB 325 MG TAB PO PRN (02:29)
[2020-10-09] MEDS: METOPROLOL TARTRATE 50 MG TAB PO SCH ×3 (02:29→19:40)
--- NOTE | 2020-10-09 02:32 | P.HPIM ---
History of Present Illness H&P Date: 10/09/20 Chief Complaint: dysuria , frequent urination 85 year old female with history of Afib on aspirin , VRE UTI 2019 patient comes in complaining of frequent urination , dysuria and lower abd pain. symptoms started 2 weeks ago, with occasional hematuria , denies any fever, or c hills, she started on antibiotics with cefuroxime , and later switched to Keflex due to persistent symptoms. her daughter brought her in today, due to persistent symptoms, and some occasional confusion. she otherwise denies any chest pain , trouble breathing , fever, chills, diarrhea, nausea or vomiting. patient had UTI with VRE back in 2019, cultures reviewed and patient was given gentamicin in the ED. will be admitted for further treatment Review of Systems Pertinent positives as noted in HPI. 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 Past Anesthesia/Blood Transfusion Reactions: No Reported Reaction Additional Past Anesthesia/Blood Transfusion Reaction / Comment(s): Pt recently received blood without reaction. Past Psychological History: Anxiety Smoking Status: Never smoker Past Alcohol Use History: None Reported Past Drug Use History: None Reported - Past Family History Mother Family Medical History: Congestive Heart Failure (CHF), Coronary Artery Disease (CAD) (Mother at age of 75 from CAD and CHF.) Additional Family Medical History / Comment(s): Mother was healthy Father Family Medical History: Chest Pain / Angina, Diabetes Mellitus (Father in his 80s from diabetes mellitus type 2) Additional Family Medical History / Comment(s): Bone cancer Brother(s) Family Medical History: Congestive Heart Failure (CHF), Coronary Artery Disease (CAD) Son(s) Family Medical History: No Reported History (Patient has 2 sons one of them is healthy other one pass from brain hemorrhage.) Daughter(s) Family Medical History: No Reported History (Patient has one daughter no major medical problems.) Medications and Allergies Home Medications Medication Instructions Recorded Confirmed Type Cyanocobalamin (Vitamin B-12) 1,000 mcg PO DAILY 05/07/19 10/08/20 History [Vitamin B-12] Simvastatin [Zocor] 20 mg PO HS 05/07/19 10/08/20 History Flecainide [Tambocor] 50 mg PO Q12HR #60 tab 05/12/19 10/08/20 Rx Biotin 10,000 mcg PO DAILY 10/08/20 10/08/20 History Cephalexin [Keflex] 250 mg PO Q8HR 10/08/20 10/08/20 History Ibuprofen [Motrin] 800 mg PO BID PRN 10/08/20 10/08/20 History LORazepam [Ativan] 1 mg PO BID PRN 10/08/20 10/08/20 History Metoprolol Tartrate [Lopressor] 50 mg PO BID 10/08/20 10/08/20 History Multivitamins, Thera [Multivitamin 1 tab PO DAILY 10/08/20 10/08/20 History (formulary)] Allergies Allergy/AdvReac Type Severity Reaction Status Date / Time aspirin Allergy Unknown Verified 10/08/20 21:51 codeine Allergy Unknown Verified 10/08/20 21:51 nalbuphine [From Nubain] Allergy Unknown Verified 10/08/20 21:51 hydromorphone [From Dilaudid] AdvReac Confusion Verified 10/08/20 21:51 Physical Exam Vitals: Vital Signs Temp Pulse Resp BP Pulse Ox 10/09/20 00:36 98 F 66 20 140/77 98 10/08/20 20:42 98.3 F 63 18 147/53 99 Intake and Output 10/08/20 10/08/20 10/09/20 14:59 22:59 06:59 Other: Weight 58.967 kg Constitutional: No acute distress, conversant, pleasant Eyes: Anicteric sclerae, moist conjunctiva, Pupils equal round reactive to light ENMT: NC/AT Oropharynx clear, no erythema, or exudates Neck: Supple, FROM, no masses, or JVD No carotid bruits No thyromegaly Lungs: Clear to auscultation Clear to percussion Normal respiratory effort, no accessory muscle use Cardiovascular: Heart regular in rate and rhythm, No murmurs, gallops, or rubs No peripheral edema Abdominal: Soft tenderness to palpation of the suprapubic region, no guarding, rebound or rigidity Abdomen moving with respiration Normoactive bowel sounds No hepatomegaly, No splenomegaly No palpable mass No abdominal wall hernia noted Skin: Normal temperature, tone, texture, turgor No induration No subcutaneous nodules No rash, lesions No ulcers Extremities: No digital cyanosis No clubbing Pedal pulses intact and symmetrical Radial pulses intact and symmetrical No calf tenderness Psychiatric: Alert and oriented to person, place Appropriate affect fair judgement Neuro Muscles Strength 4/5 in all 4 extremities Sensation to light touch grossly present throughout Cranial nerves II-XII grossly intact No focal sensory deficits Lymphatics: no palpable cervical or supraclavicular , or inguinal lymph nodes Results CBC & Chem 7: 10/08/20 21:32 10/08/20 21:32 Labs: Abnormal Lab Results - Last 24 Hours (Table) 10/08/20 10/08/20 10/08/20 Range/Units 21:32 21:32 21:32 RBC 2.82 L (3.80-5.40) m/uL Hgb 9.1 L (11.4-16.0) gm/dL Hct 29.0 L (34.0-46.0) % MCV 103.0 H (80.0-100.0) fL RDW 17.1 H (11.5-15.5) % Neutrophils # (Manual) 9.20 H (1.3-7.7) k/uL Lymphocytes # (Manual) 0.62 L (1.0-4.8) k/uL Nucleated RBCs 1 H (0-0) /100 WBC Chloride 112 H (98-107) mmol/L Carbon Dioxide 18 L (22-30) mmol/L BUN 23 H (7-17) mg/dL Glucose 100 H (74-99) mg/dL Albumin 3.3 L (3.5-5.0) g/dL Urine Appearance Turbid H (Clear) Urine Protein (Negative) Urine Blood (Negative) Ur Leukocyte Esterase (Negative) Urine RBC >182 H (0-5) /hpf Urine WBC >182 H (0-5) /hpf Urine WBC Clumps Many H (None) /hpf Urine Bacteria Many H (None) /hpf Urine Mucus Occasional H (None) /hpf 10/08/20 Range/Units 23:56 RBC (3.80-5.40) m/uL Hgb (11.4-16.0) gm/dL Hct (34.0-46.0) % MCV (80.0-100.0) fL RDW (11.5-15.5) % Neutrophils # (Manual) (1.3-7.7) k/uL Lymphocytes # (Manual) (1.0-4.8) k/uL Nucleated RBCs (0-0) /100 WBC Chloride (98-107) mmol/L Carbon Dioxide (22-30) mmol/L BUN (7-17) mg/dL Glucose (74-99) mg/dL Albumin (3.5-5.0) g/dL Urine Appearance Turbid H (Clear) Urine Protein 2+ H (Negative) Urine Blood Large H (Negative) Ur Leukocyte Esterase Large H (Negative) Urine RBC 57 H (0-5) /hpf Urine WBC >182 H (0-5) /hpf Urine WBC Clumps Many H (None) /hpf Urine Bacteria Many H (None) /hpf Urine Mucus Rare H (None) /hpf Assessment and Plan Assessment: UTI failed outpatient therapy , with history of VRE UTI 2018 patient started on gentamicin IVF hydration with normal saline 1 L bolus then 75 cc per hour tylenol for fever follow up cultures P. Afib on aspirin resume flecanide and metoprolol constipation senna S GERD PPI Hyperlipidemia , resume statin CODE STATUS: full code DVT prophylaxis: heparin sc tid Discussed with: Patient, ER Anticipated length of stay > than [address]: home A total of 75 minutes was spent on the care of this complex patient more than 50% of the time was spent in counseling and care coordination.
[2020-10-09] MEDS: FLECAINIDE 50 MG TAB PO SCH ×3 (02:49→19:40)
[2020-10-09] MEDS: PANTOPRAZOLE 40 MG TABLET PO SCH (08:02)
[2020-10-09] MEDS: HEPARIN SODIUM,PORCINE 5,000 UNIT/ML 1 ML VIAL SQ SCH ×3 (08:02→19:40)
[2020-10-09] MEDS ORDERED: LORazepam 1 MG TAB PO PRN (09:00)
[2020-10-09] MEDS: LINEZOLID 600 MG in DEXTROSE/WATER 1 300ML.BAG IVPB SCH ×2 (10:53→20:26)
[2020-10-09] MEDS: SODIUM CHLORIDE 0.9% 1,000 ML IV SCH ×2 (10:53→19:39)
--- NOTE | 2020-10-09 11:36 | US ---
EXAMINATION TYPE: US renals and bladder DATE OF EXAM: 10/09/2020 COMPARISON: NONE CLINICAL HISTORY: UTI. Failed outpatient UTI. EXAM MEASUREMENTS: Right Kidney: 8.5 x 4.4 x 4.2 cm Left Kidney: 9.1 x 4.2 x 5.4 cm Right Kidney: Lower pole cystic lesion = 0.7 x 0.7 x 0.6 cm Left Kidney: Mid/medial cystic lesion = 3.5 x 3.1 x 3.4 cm. Lower pole cortical cystic lesion = 1.1 x 1.2 x 0.9 cm. Unable to visualized spleen due to patient position for comparison. Bladder: Possible debris and multiple stones seen within bladder. Patient was uncomfortable during b ladder imaging. Bilateral Jets not seen There is no evidence for hydronephrosis at this point in time. No nephrolithiasis is seen. No solid masses are identified. IMPRESSION: Renal cystic changes noted. Debris and possible stones within the urinary bladder.
--- NOTE | 2020-10-09 12:25 | P.PN ---
Subjective Progress Note Date: 10/09/20 Principal diagnosis: UTI failed outpatient therapy, confusion 85 year old female with history of Afib on aspirin , VRE UTI 2018 patient comes in complaining of frequent urination , dysuria and lower abd pain. symptoms started 2 weeks ago, with occasional hematuria , denies any fever, or chills, she started on antibiotics with cefuroxime , and later switched to Keflex due to persistent symptoms. her daughter brought her in today, due to persistent symptoms, and some occasional confusion. she otherwise denies any chest pain , trouble breathing , fever, chills, diarrhea, nausea or vomiting. patient had UTI with VRE back in 2019, cultures reviewed and patient was given gentamicin in the ED. will be admitted for further treatment 10/09: Patient was seen today on . Patient appears to be confused asking repeated questions throughout the interview. She is able to answer questions appropriately. Patient states that she has not been drinking any water she does not like it because membranes are dry. Patient remains afebrile, pulse rate 63, respirations 18 and nonlabored, blood pressure 134/53, pulse oximetry 99% on room air. WC 10.4, hemoglobin 9.1, potassium 4.5, BUN 23, creatinine 0.89. Review Of Systems: Constitutional: No fever, no chills, no night sweats. No weight change. No weakness, fatigue or lethargy. No daytime sleepiness. EENT: No headache. No blurred vision or double vision, no loss of vision. No loss of Hearing, no ringing in the ears, no dizziness. No nasal drainage or congestion. No epistaxis. No sore throat. Lungs: No shortness of breath, cough, no sputum production. No wheezing. Cardiovascular: No chest pain, no lower extremity edema. No palpitations. No paroxysmal nocturnal dyspnea. No orthopnea. No lightheadedness or dizziness. No syncopal episodes. Abdominal: no abdominal discomfort. No nausea, vomiting. no diarrhea. No constipation. No bloody or tarry stools. no loss of appetite. Genitourinary: Reports dysuria, + increased frequency and urgency. No urinary retention. Musculoskeletal: No myalgias. No muscle weakness, no gait dysfunction, no frequent falls. No back pain. No neck pain. Integumentary: No wounds, no lesions. No rash or pruritus. No unusual bruising. No change in hair or nails. Neurologic: No aphasia. No facial droop. No change in mentation. No head injury. No headache. No paralysis. No paresthesia. Psychiatric: No depression. No anxiety. No mood swings. Endocrine: No abnormal blood sugars. No weight change. No excessive sweating or thirst. General Appearance: Alert, cooperative, answering questions repeatedly no distress, appears stated age. Neck HEENT: Supple, no lymphadenopathy, no thyroid enlargement, no carotid bruits. Lungs: Clear to auscultation without crackles or wheezes no rhonchi, no deformity. Chest Wall: Chest wall normal expansion with deep inspiration no tenderness and no deformity was found on exam, no costochondral pain or discomfort. Heart: Regular rate and rhythm, S1, S2 normal, no murmur, rub or gallop. Back: Symmetric, no curvature, ROM normal, no CVA tenderness. Abdomen: Soft, non-tender, no rebound or rigidity, no hepatosplenomegaly. Extremities: Extremities normal, atraumatic, no cyanosis or edema. Pulses: 2+ and symmetric. Skin: Skin color, texture, tugor normal, no rashes or lesions. Neurologic: Confusion noted Alert oriented x3 cranial nerves II through XII intact, no motor deficit, no abnormal balance or gait Assessment/plan 1. UTI failed outpatient therapy with history of VRE UTI 2019. Patient was started on gentamicin which was DC'd, linezolid was started with a consult for ID, awaiting final urine microbiology. 2. Dehydration. Normal saline at 75 mL per hour 3. Confusion most likely related to UTI. Continue with hydration and IV antibiotics 4. Atrial fibrillation. Continue aspirin, flecainide, metoprolol 5. GERD Protonix 40 mg by mouth before meals 6. GI bleed, stable. 7. Hyperlipidemia atorvastatin 10 mg by mouth at bedtime 8. History of left breast cancer with surgery, stable. 9. Constipation related to opiate use: Senokot 10. Anxiety: Ativan 0.5 mg by mouth twice a day 11. GI prophylaxis Protonix 40 mg by mouth before meals 12. DVT prophylaxis heparin 5000 units subcu q8 hours, pneumatic compression stockings CODE STATUS: Full code Patient will be admitted for minimum tonight hospital stay Impression and plan of care have been directed as dictated by the signing physician. Shana Marrero nurse practitioner acting as scribe for signing physician. Objective - Vital Signs Vital signs: Vital Signs Temp 97.9 F 10/09/20 08:00 Pulse 63 10/09/20 08:00 Resp 18 10/09/20 08:00 BP 134/53 10/09/20 08:00 Pulse Ox 99 10/09/20 08:00 Intake & Output 10/08/20 10/09/20 10/09/20 18:59 06:59 18:59 Intake Total 200 Balance 200 Weight 58.967 kg Intake: Oral 200 Other: Voiding Method Toilet Toilet # Voids 1 1 # Bowel Movements 1 - Labs CBC & Chem 7: 10/08/20 21:32 10/08/20 21:32 Labs: Abnormal Lab Results - Last 24 Hours (Table) 10/08/20 10/08/20 10/08/20 Range/Units 21:32 21:32 21:32 RBC 2.82 L (3.80-5.40) m/uL Hgb 9.1 L (11.4-16.0) gm/dL Hct 29.0 L (34.0-46.0) % MCV 103.0 H (80.0-100.0) fL RDW 17.1 H (11.5-15.5) % Neutrophils # (Manual) 9.20 H (1.3-7.7) k/uL Lymphocytes # (Manual) 0.62 L (1.0-4.8) k/uL Nucleated RBCs 1 H (0-0) /100 WBC Chloride 112 H (98-107) mmol/L Carbon Dioxide 18 L (22-30) mmol/L BUN 23 H (7-17) mg/dL Glucose 100 H (74-99) mg/dL Albumin 3.3 L (3.5-5.0) g/dL Urine Appearance Turbid H (Clear) Urine Protein (Negative) Urine Blood (Negative) Ur Leukocyte Esterase (Negative) Urine RBC >182 H (0-5) /hpf Urine WBC >182 H (0-5) /hpf Urine WBC Clumps Many H (None) /hpf Urine Bacteria Many H (None) /hpf Urine Mucus Occasional H (None) /hpf 10/08/20 Range/Units 23:56 RBC (3.80-5.40) m/uL Hgb (11.4-16.0) gm/dL Hct (34.0-46.0) % MCV (80.0-100.0) fL RDW (11.5-15.5) % Neutrophils # (Manual) (1.3-7.7) k/uL Lymphocytes # (Manual) (1.0-4.8) k/uL Nucleated RBCs (0-0) /100 WBC Chloride (98-107) mmol/L Carbon Dioxide (22-30) mmol/L BUN (7-17) mg/dL Glucose (74-99) mg/dL Albumin (3.5-5.0) g/dL Urine Appearance Turbid H (Clear) Urine Protein 2+ H (Negative) Urine Blood Large H (Negative) Ur Leukocyte Esterase Large H (Negative) Urine RBC 57 H (0-5) /hpf Urine WBC >182 H (0-5) /hpf Urine WBC Clumps Many H (None) /hpf Urine Bacteria Many H (None) /hpf Urine Mucus Rare H (None) /hpf Microbiology - Last 24 Hours (Table) 10/08/20 21:32 Urine Culture - Preliminary Urine,Voided
[2020-10-09] MEDS: LORazepam 0.5 MG TAB PO PRN (14:05)
[2020-10-09] MEDS: ATORVASTATIN 10 MG TAB PO SCH (19:40)
--- NOTE | 2020-10-09 20:36 | CONS ---
CONSULTATION DATE OF SERVICE: 10/09/2020 REASON FOR CONSULTATION: Urinary tract infection. HISTORY OF PRESENT ILLNESS: The patient is an 85-year-old female presenting to the ER for evaluation of suprapubic discomfort and dysuria. This patient's symptoms have been going on for about a week. The patient has been treated in the outpatient setting with cefuroxime followed by Keflex with the patient treated for the last 2-3 days. However, the patient did not have any improvement, still complaining of pain to the suprapubic area, more of a dull aching 3 to 4 out of 10 in duration, also with frequency and burning of urine. The patient denies having high-grade fever or chills. No chest pain, shortness of breath or cough. Did have some diarrhea. With these symptoms, the patient was evaluated by the ER physician. On arrival to the patient was afebrile. The patient did have white count 10.4 with left shift. Creatinine was 0.89. The patient did have a positive UA with large leukocyte esterase, more than 1-2 WBC. Cardona PCR was negative. She did receive a dose of gentamicin by the ER physician. Subsequent antibiotic has been switched over to Rocephin and linezolid. Infectious Disease was consulted for further management for antibiotic therapy. The patient did have an ultrasound of the kidneys but no other source or abnormality. REVIEW OF SYSTEMS: Positive points have been mentioned in HPI. Rest of systems are negative. PAST MEDICAL HISTORY: Significant for atrial fibrillation, gastroesophageal reflux disease, GI bleed, hyperlipidemia, diverticulitis with an abscess, left breast cancer, previous history of VRE urinary tract infection, possible, history of appendectomy, back surgery, cholecystectomy, left breast mastectomy, EGD, colonoscopy, right total knee arthroplasty. SOCIAL HISTORY: No history of smoking, drinking or drug use. FAMILY HISTORY: Mother history of congestive heart failure, coronary artery disease. Father with history of angina and diabetes. ALLERGIES: ASPIRIN, CODEINE, HYDROMORPHONE. MEDICATIONS: The patient is currently on Rocephin 1 g daily, linezolid, Senokot, Protonix, Zofran, , heparin, Lipitor and Tylenol. PHYSICAL EXAMINATION: VITAL SIGNS: Blood pressure 140/48 with a pulse of 60, temperature 98.6. She is 95% on room air. GENERAL DESCRIPTION: An elderly female lying in bed in no distress. No tachypnea or accessory muscle of respiration use. HEENT: Examination shows slight pallor. No scleral icterus. Oral mucous membrane is dry. NECK: Trachea central, no thyromegaly. LUNGS: Unlabored breathing, clear to auscultation anteriorly. No wheeze or crackles. HEART: S1, S2. Regular rate and rhythm. ABDOMEN: Soft, no tenderness. No guarding or rigidity. EXTREMITIES: No edema of the feet. SKIN: Examination shows no rash or mass palpable. NEUROLOGICAL: The patient is awake, alert, oriented. Mood and affect normal. LABS: Hemoglobin 9.1, white count 10.4, BUN of 23, creatinine 0.89. Liver enzymes are normal. Urine was positive. DIAGNOSTIC IMPRESSION: Patient admitted to the hospital with abdominal pain in this patient who did have urinary burning and frequency. Did have significantly positive UA with concern for symptomatic urinary tract infection, failing outpatient oral Keflex and cefuroxime therapy. PLAN: 1. We will keep the patient on Rocephin and linezolid in view of previous history of VRE infection. 2. Gentle IV fluid. 3. We will follow on clinical condition and culture to further adjust medication if needed. Thank you for this consultation. Will follow this patient along with you. MMODL / IJN: [id number] /
[2020-10-09 22:13] LABS: ALT 11 U/L (4-34); AST 23 U/L (14-36); African American GFR (CKD) 86 (>60 ml/min/1.73 sqM); Albumin 2.9 g/dL (3.5-5.0); Albumin/Globulin Ratio 0.9; Alkaline Phosphatase 66 U/L (38-126); Anion Gap 11 mmol/L; Blood Urea Nitrogen 18 mg/dL (7-17); Calcium 8.7 mg/dL (8.4-10.2); Carbon Dioxide 14 mmol/L (22-30); Chloride 114 mmol/L (98-107); Globulin 3.1 g/dL; Glucose 134 mg/dL (74-99); Non-African American GFR(CKD) 74 (>60 ml/min/1.73 sqM); Potassium 4.6 mmol/L (3.5-5.1); Sodium 139 mmol/L (137-145); Total Bilirubin 0.2 mg/dL (0.2-1.3)
[2020-10-09] MEDS ORDERED: GENTAMICIN 300 MG in SODIUM CHLORIDE 0.9% 100 ML IVPB SCH (23:00)
[2020-10-10] MEDS ORDERED: GENTAMICIN IVPB SCH (06:00)
[2020-10-10] MEDS ORDERED: SODIUM CHLORIDE 0.9% IVPB SCH (06:00)
[2020-10-10] MEDS: LINEZOLID 600 MG in DEXTROSE/WATER 1 300ML.BAG IVPB SCH ×2 (08:01→23:52)
[2020-10-10] MEDS: ACETAMINOPHEN TAB 325 MG TAB PO PRN ×2 (08:04→15:16)
[2020-10-10] MEDS: PANTOPRAZOLE 40 MG TABLET PO SCH (08:06)
[2020-10-10] MEDS: METOPROLOL TARTRATE 50 MG TAB PO SCH ×2 (08:06→23:53)
[2020-10-10] MEDS: HEPARIN SODIUM,PORCINE 5,000 UNIT/ML 1 ML VIAL SQ SCH ×2 (08:06→15:16)
[2020-10-10] MEDS: SODIUM CHLORIDE 0.9% 1,000 ML IV SCH ×2 (08:07→23:53)
[2020-10-10] MEDS: FLECAINIDE 50 MG TAB PO SCH (08:07)
[2020-10-10 10:59] LABS: African American GFR (CKD) 90.9 (60.0-200.0); Albumin 3.3 g/dL (3.80-4.90); Albumin/Globulin Ratio 1.65 (1.60-3.17); Anion Gap 6.8 mmol/L (4.00-12.00); BUN/Creat Ratio 15.71 Ratio (12.00-20.00); Carbon Dioxide 20.2 mmol/L (21.6-31.8); Non-African American GFR(CKD) 78.5 (60.0-200.0); Potassium 4.2 mmol/L (3.5-5.5); Total Bilirubin 0.2 mg/dL (0.2-1.2); Total Protein 5.3 g/dL (6.2-8.2)
--- NOTE | 2020-10-10 12:04 | P.PN ---
Subjective Progress Note Date: 10/10/20 85 year old female with history of Afib on aspirin , VRE UTI 2018 patient comes in complaining of frequent urination , dysuria and lower abd pain. symptoms started 2 weeks ago, with occasional hematuria , denies any fever, or chills, she started on antibiotics with cefuroxime , and later switched to Kefle x due to persistent symptoms. her daughter brought her in today, due to persistent symptoms, and some occasional confusion. she otherwise denies any chest pain , trouble breathing , fever, chills, diarrhea, nausea or vomiting. patient had UTI with VRE back in 2019, cultures reviewed and patient was given gentamicin in the ED. will be admitted for further treatment 10/09: Patient was seen today on . Patient appears to be confused asking repeated questions throughout the interview. She is able to answer questions appropriately. Patient states that she has not been drinking any water she does not like it because membranes are dry. Patient remains afebrile, pulse rate 63, respirations 18 and nonlabored, blood pressure 134/53, pulse oximetry 99% on room air. WC 10.4, hemoglobin 9.1, potassium 4.5, BUN 23, creatinine 0.89. 10/10: Patient states she is doing better. Continues have short-term last with repeat questions throughout the interview. This appears to be patient's basel ine. We will continue with Rocephin for antibiotics. Awaiting urinary culture. Patient remains afebrile, pulse rate 60, respirations 18, blood pressure 1 6453, 99% on room air. Review Of Systems: Constitutional: No fever, no chills, no night sweats. No weight change. No weakness, fatigue or lethargy. No daytime sleepiness. EENT: No headache. No blurred vision or double vision, no loss of vision. No loss of Hearing, no ringing in the ears, no dizziness. No nasal drainage or congestion. No epistaxis. No sore throat. Lungs: No shortness of breath, cough, no sputum production. No wheezing. Cardiovascular: No chest pain, no lower extremity edema. No palpitations. No paroxysmal nocturnal dyspnea. No orthopnea. No lightheadedness or dizziness. No syncopal episodes. Abdominal: no abdominal discomfort. No nausea, vomiting. no diarrhea. No constipation. No bloody or tarry stools. no loss of appetite. Genitourinary: Reports dysuria, + increased frequency and urgency. No urinary retention. Musculoskeletal: No myalgias. No muscle weakness, no gait dysfunction, no frequent falls. No back pain. No neck pain. Integumentary: No wounds, no lesions. No rash or pruritus. No unusual bruising. No change in hair or nails. Neurologic: No aphasia. No facial droop. No change in mentation. No head injury. No headache. No paralysis. No paresthesia. Psychiatric: No depression. No anxiety. No mood swings. Endocrine: No abnormal blood sugars. No weight change. No excessive sweating or thirst. General Appearance: Alert, cooperative, answering questions repeatedly no di stress, appears stated age. Neck HEENT: Supple, no lymphadenopathy, no thyroid enlargement, no carotid bruits. Lungs: Clear to auscultation without crackles or wheezes no rhonchi, no deformity. Chest Wall: Chest wall normal expansion with deep inspiration no tenderness and no deformity was found on exam, no costochondral pain or discomfort. Heart: Regular rate and rhythm, S1, S2 normal, no murmur, rub or gallop. Back: Symmetric, no curvature, ROM normal, no CVA tenderness. Abdomen: Soft, non-tender, no rebound or rigidity, no hepatosplenomegaly. Extremities: Extremities normal, atraumatic, no cyanosis or edema. Pulses: 2+ and symmetric. Skin: Skin color, texture, tugor normal, no rashes or lesions. Neurologic: Confusion noted Alert oriented x3 cranial nerves II through XII intact, no motor deficit, no abnormal balance or gait Assessment/plan 1. UTI failed outpatient therapy with history of VRE UTI 2019. Patient was started on gentamicin which was DC'd, linezolid was started Rocephin added consult for ID appreciated, awaiting final urine microbiology. 2. Dehydration. Normal saline at 75 mL per hour 3. Metabolic encephalopathy undermining dementia. Short-term memory loss appears to be baseline for the patient. Continue with hydration and IV antibiotics 4. Atrial fibrillation. Continue aspirin, flecainide, metoprolol 5. GERD Protonix 40 mg by mouth before meals 6. GI bleed, stable. 7. Hyperlipidemia atorvastatin 10 mg by mouth at bedtime 8. History of left breast cancer with surgery, stable. 9. Constipation related to opiate use: Senchanduot 10. Anxiety: Ativan 0.5 mg by mouth twice a day 11. GI prophylaxis Protonix 40 mg by mouth before meals 12. DVT prophylaxis heparin 5000 units subcu q8 hours, pneumatic compression stockings CODE STATUS: Full code Patient will be admitted for minimum tonight hospital stay Impression and plan of care have been directed as dictated by the signing physician. Shana Marrero nurse practitioner acting as scribe for signing physician. Objective - Vital Signs Vital signs: Vital Signs Temp 97.8 F 10/10/20 07:02 Pulse 60 10/10/20 07:02 Resp 18 10/10/20 07:02 BP 164/53 10/10/20 07:02 Pulse Ox 99 10/10/20 07:02 Intake & Output 10/09/20 10/10/20 10/10/20 18:59 06:59 18:59 Intake Total 640 950 200 Balance 640 950 200 Intake: Intake, IV Titration 950 Amount Linezolid 600 mg In 300 Dextrose/Water 1 300ml. bag @ 150 mls/hr IVPB Q12HR [facility]AY[facility] Rx#:[id number] Sodium Chloride 0.9% 1, 600 000 ml @ 75 mls/hr IV . [id number] [facility] Rx#:[id number] cefTRIAXone 1 gm In 50 Sodium Chloride 0.9% 50 ml @ 100 mls/hr IVPB Q24H [facility] Rx#:[id number] Oral 640 200 Other: Voiding Method Toilet Toilet Toilet Bedside Commode # Voids 1 4 1 # Bowel Movements 1 1 - Labs CBC & Chem 7: 10/08/20 21:32 10/10/20 04:24 Labs: Abnormal Lab Results - Last 24 Hours (Table) 10/09/20 10/10/20 Range/Units 08:49 04:24 Chloride 114 H 111 H (98-107) mmol/L Carbon Dioxide 14 L 20.2 L (22-30) mmol/L BUN 18 H (7-17) mg/dL Glucose 134 H (74-99) mg/dL Calcium 8.0 L (8.7-10.3) mg/dL Total Protein 6.0 L 5.3 L (6.3-8.2) g/dL Albumin 2.9 L 3.30 L (3.5-5.0) g/dL
[2020-10-10] MEDS: IBUPROFEN 400 MG TAB PO PRN (19:45)
--- NOTE | 2020-10-10 23:50 | PN ---
PROGRESS NOTE DATE OF SERVICE: 10/10/2020 REASON FOR FOLLOWUP: COVID-19 infection. INTERVAL HISTORY: Patient is currently afebrile. The patient denies having any chest pain, shortness of breath or cough. No abdominal pain and no diarrhea. Did have some urinary burning. PHYSICAL EXAMINATION: Her blood pressure is 179/86, pulse of 78. Temperature 97.5. She is 98% on room air. General description: The patient is an elderly female lying in bed in no distress. Respiratory system: Unlabored breathing. Clear to auscultation anteriorly. Heart S1, S2. Regular rate and rhythm. Abdomen soft, no tenderness. LABS: Urine cultures currently pending. DIAGNOSTIC IMPRESSION AND PLAN: Patient admitted to the hospital with UTI, failing outpatient antibiotic therapy. Patient is currently covered with Rocephin and Flagyl to continue while monitoring clinical course closely. Continue supportive care. ANDRAE / VILMA: [id number] /
[2020-10-10] MEDS: ATORVASTATIN 10 MG TAB PO SCH (23:52)
[2020-10-11] MEDS: FLECAINIDE 50 MG TAB PO SCH ×3 (00:25→21:33)
[2020-10-11] MEDS: HEPARIN SODIUM,PORCINE 5,000 UNIT/ML 1 ML VIAL SQ SCH ×4 (02:51→21:32)
[2020-10-11] MEDS: LORazepam 0.5 MG TAB PO PRN ×2 (02:51→13:38)
[2020-10-11] MEDS: PANTOPRAZOLE 40 MG TABLET PO SCH (07:22)
[2020-10-11] MEDS: LINEZOLID 600 MG in DEXTROSE/WATER 1 300ML.BAG IVPB SCH (08:52)
[2020-10-11] MEDS: IBUPROFEN 400 MG TAB PO PRN ×3 (08:54→21:32)
[2020-10-11] MEDS: METOPROLOL TARTRATE 50 MG TAB PO SCH ×2 (08:55→21:32)
[2020-10-11 08:59] LABS: Basophils # (A) 0.02 X 10*3/uL (0.00-0.10); Basophils % (A) 0.2 %; Eosinophils # (A) 0.08 X 10*3/uL (0.04-0.35); Eosinophils % (A) 0.9 %; HCT 24.1 % (37.2-46.3); HGB 7.4 g/dL (12.0-15.0); Lymphocytes # (A) 0.99 X 10*3/uL (0.90-5.00); Lymphocytes % (A) 11.5 %; MCH 32.2 pg (27.0-32.0); MCHC 30.7 g/dL (32.0-37.0); MCV 104.8 fL (80.0-97.0); Mean Platelet Volume 10.1 fL (9.5-12.2); Monocytes # (A) 0.57 X 10*3/uL (0.20-1.00); Monocytes % (A) 6.6 %; Neutrophils # (A) 6.93 X 10*3/uL (1.80-7.70); Neutrophils % (A) 80.5 %; Platelet Count 445 X 10*3/uL (140-440); RDW 16.8 % (11.5-14.5); WBC 8.62 X 10*3/uL (4.50-10.00)
[2020-10-11 09:50] LABS: African American GFR (CKD) 77.4 (60.0-200.0); Anion Gap 10.1 mmol/L (4.00-12.00); BUN/Creat Ratio 17.5 Ratio (12.00-20.00); Calcium 8.2 mg/dL (8.7-10.3); Carbon Dioxide 16.9 mmol/L (21.6-31.8); Non-African American GFR(CKD) 66.8 (60.0-200.0); Potassium 4.2 mmol/L (3.5-5.5)
--- NOTE | 2020-10-11 13:05 | P.PN ---
Subjective Progress Note Date: 10/11/20 patient comes in complaining of frequent urination , dysuria and lower abd pain. symptoms started 2 weeks ago, with occasional hematuria , denies any fever, or chills, she started on antibiotics with cefuroxime , and later switched to Keflex due to persistent symptoms. her daughter brought her in today, due to persistent symptoms, and some occasional confusion. she otherwise denies any chest pain , trouble breathing , fever, chills, diarrhea, nausea or vomiting. patient had UTI with VRE back in 2019, cultures reviewed and patient was given gentamicin in the ED. will be admitted for further treatment 10/09: Patient was seen today on 6 . Patient appears to be confused asking repeated questions throughout the interview. She is able to answer questions appropriately. Patient states that she has not been drinking any water she does not like it because membranes are dry. Patient remains afebrile, pulse rate 63, respirations 18 and nonlabored, blood pressure 134/53, pulse oximetry 99% on room air. WC 10.4, hemoglobin 9.1, potassium 4.5, BUN 23, creatinine 0.89. 10/10: Patient states she is doing better. Continues have short-term last with repeat questions throughout the interview. This appears to be patient's baseline. We will continue with Rocephin for antibiotics. Awaiting urinary culture. Patient remains afebrile, pulse rate 60, respirations 18, blood pressure 1 6453, 99% on room air. 10/11: Patient is currently on Rocephin and Zyvox. Urine culture is gram-negative bacilli. Patient states she has a little dysuria. She's been afebrile, heart rate 68, blood pressure 146/64, pulse ox 97% on room air. Patient is pleasantly confused which currently is her baseline. Patient is followed by Dr. Skelton. Awaiting finalization of culture to determine antibiotics. We'll add in PT and OT to evaluate safety at home. Discharge plan is home with [facility] or if patient needs IV antibiotics, Toby. Review Of Systems: Constitutional: No fever, no chills, no night sweats. No weight change. No weakness, fatigue or lethargy. No daytime sleepiness. EENT: No headache. No blurred vision or double vision, no loss of vision. No loss of Hearing, no ringing in the ears, no dizziness. No nasal drainage or congestion. No epistaxis. No sore throat. Lungs: No shortness of breath, cough, no sputum production. No wheezing. Cardiovascular: No chest pain, no lower extremity edema. No palpitations. No paroxysmal nocturnal dyspnea. No orthopnea. No lightheadedness or dizziness. No syncopal episodes. Abdominal: no abdominal discomfort. No nausea, vomiting. no diarrhea. No constipation. No bloody or tarry stools. no loss of appetite. Genitourinary: Reports dysuria, reports frequency and urgency. No urinary retention. Musculoskeletal: No myalgias. No muscle weakness, no gait dysfunction, no frequent falls. No back pain. No neck pain. Integumentary: No wounds, no lesions. No rash or pruritus. No unusual bruising. No change in hair or nails. Neurologic: No aphasia. No facial droop. No change in mentation. No head injury. No headache. No paralysis. No paresthesia. Psychiatric: No depression. No anxiety. No mood swings. Endocrine: No abnormal blood sugars. No weight change. No excessive sweating or thirst. General Appearance: Alert, cooperative, answering questions repeatedly no distress, appears stated age. Patient is sitting on the edge of the bed. Neck HEENT: Supple, no lymphadenopathy, no thyroid enlargement, no carotid bruits. Lungs: Clear to auscultation without crackles or wheezes no rhonchi, no deformity. Chest Wall: Chest wall normal expansion with deep inspiration no tenderness and no deformity was found on exam, no costochondral pain or discomfort. Heart: Regular rate and rhythm, S1, S2 normal, no murmur, rub or gallop. Back: Symmetric, no curvature, ROM normal, no CVA tenderness. Abdomen: Soft, non-tender, no rebound or rigidity, no hepatosplenomegaly. Extremities: Extremities normal, atraumatic, no cyanosis or edema. Pulses: 2+ and symmetric. Skin: Skin color, texture, tugor normal, no rashes or lesions. Neurologic: Confusion noted Alert oriented person and place cranial nerves II through XII intact, no motor deficit, no abnormal balance or gait Assessment/plan 1. UTI failed outpatient therapy with history of VRE UTI 2019. Await finalization of urine culture. Patient is currently on ceftriaxone. Zyvox has been discontinued by Dr. Skelton. 2. Dehydration. Discontinue IV fluids 3. Metabolic encephalopathy undermining dementia. Short-term memory loss appears to be baseline for the patient. Continue with hydration and IV antibiotics 4. Paroxysmal atrial fibrillation. Continue aspirin, flecainide, metoprolol 5. GERD Protonix 40 mg by mouth before meals 6. GI bleed, stable. 7. Hyperlipidemia atorvastatin 10 mg by mouth at bedtime 8. History of left breast cancer with surgery, stable. 9. Constipation related to opiate use: Senokot 10. Anxiety: Ativan 0.5 mg by mouth twice a day 11. GI prophylaxis Protonix 40 mg by mouth before meals 12. DVT prophylaxis heparin 5000 units subcu q8 hours, pneumatic compression stockings CODE STATUS: Full code Discharge plan: Home or [facility] tomorrow Impression and plan of care have been directed as dictated by the signing physician. Brandie Ernandez nurse practitioner acting as scribe for signing physician. Objective - Vital Signs Vital signs: Vital Signs Temp 98.0 F 10/11/20 01:40 Pulse 68 10/11/20 01:40 Resp 16 10/11/20 01:40 BP 146/64 10/11/20 01:40 Pulse Ox 97 10/11/20 01:40 Intake & Output 10/10/20 10/11/20 10/11/20 18:59 06:59 18:59 Intake Total 400 Balance 400 Intake: Oral 400 Other: Voiding Method Toilet Toilet Bedside Commode Bedside Commode # Voids 3 1 # Bowel Movements 1 1 - Labs CBC & Chem 7: 10/11/20 04:54 10/11/20 04:54 Labs: Abnormal Lab Results - Last 24 Hours (Table) 10/10/20 Range/Units 04:24 Chloride 111 H (96-109) mmol/L Carbon Dioxide 20.2 L (21.6-31.8) mmol/L Calcium 8.0 L (8.7-10.3) mg/dL Total Protein 5.3 L (6.2-8.2) g/dL Albumin 3.30 L (3.80-4.90) g/dL Microbiology - Last 24 Hours (Table) 10/08/20 21:32 Urine Culture - Preliminary Urine,Voided Gram Neg Bacilli
[2020-10-11] MEDS: SODIUM CHLORIDE 0.9% 1,000 ML IV SCH (17:51)
[2020-10-11] MEDS: ATORVASTATIN 10 MG TAB PO SCH (21:32)
--- NOTE | 2020-10-11 22:03 | PN ---
PROGRESS NOTE DATE OF SERVICE: 10/11/2020 REASON FOR FOLLOWUP: Gram-negative urinary drug infection. INTERVAL HISTORY: Patient is currently afebrile. The patient is breathing comfortably. The patient denies having any chest pain or cough. No nausea, no vomiting, no abdominal pain or diarrhea. PHYSICAL EXAMINATION: Blood pressure 146/64, pulse of 68, temperature 98. She is 97% on room air. General description is an elderly female up in the bed in no distress. RESPIRATORY SYSTEM: Unlabored breathing. Clear to auscultation anteriorly. HEART: S1, S2. Regular rate and rhythm. ABDOMEN: Soft. No tenderness. LABS: Hemoglobin is 7.4, white count 8.62, BUN of 14, creatinine 0.8. Urine showing Gram- negative. DIAGNOSTIC IMPRESSION AND PLAN: Patient with Gram-negative urinary tract infection, failing outpatient antibiotic therapy. Currently covered with Rocephin. Zyvox was discontinued. Will wait for the sensitivity to determine her discharge antibiotics. Continue with supportive care. MMODL / IJN: [id number] /
[2020-10-12] MEDS: LORazepam 0.5 MG TAB PO PRN ×2 (02:53→12:37)
--- NOTE | 2020-10-12 08:48 | P.DS ---
Providers Date of admission: 10/11/20 09:03 Expected date of discharge: 10/13/20 Attending physician: Mike Newell MD Consults: 10/09/20 10:18 Consult Physician Routine Consulting Provider: Keegan Skelton Consult Reason/Comments: UTI hx VRE 2019 Do you want consulting provider notified?: Yes Primary care physician: [facility] Course: patient comes in complaining of frequent urination , dysuria and lower abd pain. symptoms started 2 weeks ago, with occasional hematuria , denies any fever, or chills, she started on antibiotics with cefuroxime , and later switched to Keflex due to persistent symptoms. her daughter brought her in today, due to persistent symptoms, and some occasional confusion. she otherwise denies any chest pain , trouble breathing , fever, chills, diarrhea, nausea or vomiting. patient had UTI with VRE back in 2018, cultures reviewed and patient was given gentamicin in the ED. will be admitted for further treatment 10/09: Patient was seen today on . Patient appears to be confused asking repeated questions throughout the interview. She is able to answer questions appropriately. Patient states that she has not been drinking any water she does not like it because membranes are dry. Patient remains afebrile, pulse rate 63, respirations 18 and nonlabored, blood pressure 134/53, pulse oximetry 99% on room air. WC 10.4, hemoglobin 9.1, potassium 4.5, BUN 23, creatinine 0.89. 10/10: Patient states she is doing better. Continues have short-term last with repeat questions throughout the interview. This appears to be patient's baseline. We will continue with Rocephin for antibiotics. Awaiting urinary culture. Patient remains afebrile, pulse rate 60, respirations 18, blood pressure 1 6453, 99% on room air. 10/11: Patient is currently on Rocephin and Zyvox. Urine culture is gram-negative bacilli. Patient states she has a little dysuria. She's been afebrile, heart rate 68, blood pressure 146/64, pulse ox 97% on room air. Patient is pleasantly confused which currently is her baseline. Patient is followed by Dr. Skelton. Awaiting finalization of culture to determine antibiotics. We'll add in PT and OT to evaluate safety at home. Discharge plan is home with [facility] or if patient needs IV antibiotics, Toby. 10/12: Urine culture is finalized with Citrobacter and E. coli. Dr. Skelton has recommended Cipro. Patient has been afebrile, heart rate 60, blood pressure 177/53, pulse ox 95% on room air. Patient remains pleasantly confused. She is no new complaints. She is tolerating diet. She is voiding sufficiently. Social work has been working with the daughter regarding discharge planning. Daughter does not want the patient to come home today. She does not want her to go to [facility]. We will hold discharge until early tomorrow morning. Patient can be discharged prior to our evaluation. 10/13: Patient's discharge was held up until the morning of October 13. gathering worker and nurse distributed generation project manager were working with the daughter to make arrangements for discharge home. Patient time of evaluation denied having any dysuria. She is anxious to go home and this denying any new complaints. No chest pain or shortness of breath. Patient will be discharged home today in stable condition. Discharge diagnoses 1. UTI failed outpatient therapy with history of VRE UTI 2018. 2. Dehydration. 3. Metabolic encephalopathy undermining dementia. Short-term memory loss appears to be baseline for the patient. 4. Paroxysmal atrial fibrillation. 5. GERD 6. GI bleed, stable. 7. Hyperlipidemia 8. History of left breast cancer with surgery, stable. 9. Constipation related to opiate use 10. Generalized anxiety disorder 11. Anemia of chronic disease Discharge plan: Home on Sunday Impression and plan of care have been directed as dictated by the signing physician. Brandie Ernandez nurse practitioner acting as scribe for signing physician. Patient Condition at Discharge: Good Plan - Discharge Summary New Discharge Prescriptions: New Sennosides [Senokot] 8.6 mg PO BID PRN tab PRN Reason: Constipation Ciprofloxacin HCl [Cipro] 500 mg PO Q12HR #14 tablet Continue Cyanocobalamin (Vitamin B-12) [Vitamin B-12] 1,000 mcg PO DAILY Simvastatin [Zocor] 20 mg PO HS Flecainide [Tambocor] 50 mg PO Q12HR #60 tab LORazepam [Ativan] 1 mg PO BID PRN PRN Reason: Anxiety Multivitamins, Thera [Multivitamin (formulary)] 1 tab PO DAILY Metoprolol Tartrate [Lopressor] 50 mg PO BID Ibuprofen [Motrin] 800 mg PO BID PRN PRN Reason: Pain Biotin 10,000 mcg PO DAILY Discontinued Cephalexin [Keflex] 250 mg PO Q8HR Discharge Medication List Cyanocobalamin (Vitamin B-12) [Vitamin B-12] 1,000 mcg PO DAILY 05/07/19 [History] Simvastatin [Zocor] 20 mg PO HS 05/07/19 [History] Flecainide [Tambocor] 50 mg PO Q12HR #60 tab 05/12/19 [Rx] Biotin 10,000 mcg PO DAILY 10/08/20 [History] Ibuprofen [Motrin] 800 mg PO BID PRN 10/08/20 [History] LORazepam [Ativan] 1 mg PO BID PRN 10/08/20 [History] Metoprolol Tartrate [Lopressor] 50 mg PO BID 10/08/20 [History] Multivitamins, Thera [Multivitamin (formulary)] 1 tab PO DAILY 10/08/20 [History] Ciprofloxacin HCl [Cipro] 500 mg PO Q12HR #14 tablet 10/12/20 [Rx] Sennosides [Senokot] 8.6 mg PO BID PRN tab 10/12/20 [Rx] Follow up Appointment(s)/Referral(s): Gideon Calderon MD [Primary Care Provider] - 10/19/20 9:30 am Ranjith Bone MD [REFERRING] - 1 Week [facility] Visiting Nurse, [NON-STAFF] - 1 Week Patient Instructions/Handouts: Urinary Tract Infection in Women (DC), Urinary Tract Infection in Older Adults (DC) Discharge Disposition: HOME WITH HOME HEALTH SERVICES
[2020-10-12] MEDS: PANTOPRAZOLE 40 MG TABLET PO SCH (08:52)
[2020-10-12] MEDS: IBUPROFEN 400 MG TAB PO PRN ×2 (08:52→19:39)
[2020-10-12] MEDS: FLECAINIDE 50 MG TAB PO SCH ×2 (08:53→19:40)
[2020-10-12] MEDS: HEPARIN SODIUM,PORCINE 5,000 UNIT/ML 1 ML VIAL SQ SCH ×2 (08:53→16:44)
[2020-10-12] MEDS: METOPROLOL TARTRATE 50 MG TAB PO SCH ×2 (08:53→19:40)
[2020-10-12 09:49] LABS: African American GFR (CKD) 52.6 (60.0-200.0); Non-African American GFR(CKD) 45.4 (60.0-200.0)
[2020-10-12] MEDS ORDERED: SODIUM FERRIC GLUCONAT-SUCROSE 125 MG in SODIUM CHLORIDE 0.9% 100 ML IVPB ONE (10:00)
--- NOTE | 2020-10-12 11:44 | P.PN ---
Subjective Progress Note Date: 10/12/20 patient comes in complaining of frequent urination , dysuria and lower abd pain. symptoms started 2 weeks ago, with occasional hematuria , denies any fever, or chills, she started on antibiotics with cefuroxime , and later switched to Keflex due to persistent symptoms. her daughter brought her in today, due to persistent symptoms, and some occasional confusion. she otherwise denies any chest pain , trouble breathing , fever, chills, diarrhea, nausea or vomiting. patient had UTI with VRE back in 2018, cultures reviewed and patient was given gentamicin in the ED. will be admitted for further treatment 10/09: Patient was seen today on 6 . Patient appears to be confused asking repeated questions throughout the interview. She is able to answer questions appropriately. Patient states that she has not been drinking any water she does not like it because membranes are dry. Patient remains afebrile, pulse rate 63, respirations 18 and nonlabored, blood pressure 134/53, pulse oximetry 99% on room air. WC 10.4, hemoglobin 9.1, potassium 4.5, BUN 23, creatinine 0.89. 10/10: Patient states she is doing better. Continues have short-term last with repeat questions throughout the interview. This appears to be patient's baseline. We will continue with Rocephin for antibiotics. Awaiting urinary culture. Patient remains afebrile, pulse rate 60, respirations 18, blood pressure 1 6453, 99% on room air. 10/11: Patient is currently on Rocephin and Zyvox. Urine culture is gram-negative bacilli. Patient states she has a little dysuria. She's been afebrile, heart rate 68, blood pressure 146/64, pulse ox 97% on room air. Patient is pleasantly confused which currently is her baseline. Patient is followed by Dr. Skelton. Awaiting finalization of culture to determine antibiotics. We'll add in PT and OT to evaluate safety at home. Discharge plan is home with [facility] or if patient needs IV antibiotics, Toby. 10/12: Urine culture is finalized with Citrobacter and E. coli. Dr. Skelton has recommended Cipro. Patient has been afebrile, heart rate 60, blood pressure 177/53, pulse ox 95% on room air. Patient remains pleasantly confused. She is no new complaints. She is tolerating diet. She is voiding sufficiently. Social work has been working with the daughter regarding discharge planning. Daughter does not want the patient to come home today. She does not want her to go [facility]. We will hold discharge until early tomorrow morning. Patient can be discharged prior to our evaluation. Review Of Systems: Constitutional: No fever, no chills, no night sweats. No weight change. No weakness, fatigue or lethargy. No daytime sleepiness. EENT: No headache. No blurred vision or double vision, no loss of vision. No loss of Hearing, no ringing in the ears, no dizziness. No nasal drainage or congestion. No epistaxis. No sore throat. Lungs: No shortness of breath, cough, no sputum production. No wheezing. Cardiovascular: No chest pain, no lower extremity edema. No palpitations. No paroxysmal nocturnal dyspnea. No orthopnea. No lightheadedness or dizziness. No syncopal episodes. Abdominal: no abdominal discomfort. No nausea, vomiting. no diarrhea. No constipation. No bloody or tarry stools. no loss of appetite. Genitourinary: Denies dysuria, reports frequency and urgency. No urinary retention. Musculoskeletal: No myalgias. No muscle weakness, no gait dysfunction, no frequent falls. No back pain. No neck pain. Integumentary: No wounds, no lesions. No rash or pruritus. No unusual bruising. No change in hair or nails. Neurologic: No aphasia. No facial droop. No change in mentation. No head injury. No headache. No paralysis. No paresthesia. Psychiatric: No depression. No anxiety. No mood swings. Endocrine: No abnormal blood sugars. No weight change. No excessive sweating or thirst. General Appearance: Alert, cooperative, answering questions repeatedly no distress, appears stated age. Patient is sitting in bed. Neck HEENT: Supple, no lymphadenopathy, no thyroid enlargement, no carotid bruits. Lungs: Clear to auscultation without crackles or wheezes no rhonchi, no deformity. Chest Wall: Chest wall normal expansion with deep inspiration no tenderness and no deformity was found on exam, no costochondral pain or discomfort. Heart: Regular rate and rhythm, S1, S2 normal, no murmur, rub or gallop. Back: Symmetric, no curvature, ROM normal, no CVA tenderness. Abdomen: Soft, non-tender, no rebound or rigidity, no hepatosplenomegaly. Extremities: Extremities normal, atraumatic, no cyanosis or edema. Pulses: 2+ and symmetric. Skin: Skin color, texture, tugor normal, no rashes or lesions. Neurologic: Confusion noted Alert oriented person and place cranial nerves II through XII intact, no motor deficit, no abnormal balance or gait Assessment/plan 1. Citrobacter and E. coli UTI failed outpatient therapy with history of VRE UTI 2019. Patient is currently on ceftriaxone transitioned to oral ciprof loxacin. 2. Dehydration. Discontinue IV fluids 3. Metabolic encephalopathy undermining dementia. Short-term memory loss appears to be baseline for the patient. Continue with hydration and IV antibiotics 4. Paroxysmal atrial fibrillation. Continue aspirin, flecainide, metoprolol 5. GERD Protonix 40 mg by mouth before meals 6. GI bleed, stable. 7. Hyperlipidemia atorvastatin 10 mg by mouth at bedtime 8. History of left breast cancer with surgery, stable. 9. Constipation related to opiate use: Senokot 10. Anxiety: Ativan 0.5 mg by mouth twice a day 11. GI prophylaxis Protonix 40 mg by mouth before meals 12. DVT prophylaxis heparin 5000 units subcu q8 hours, pneumatic compression stockings 13. Anemia of chronic disease. Ferrlecit 1 dose today. CODE STATUS: Full code Discharge plan: Home tomorrow morning. Impression and plan of care have been directed as dictated by the signing physician. Brandie Ernandez nurse practitioner acting as scribe for signing physician. Objective - Vital Signs Vital signs: Vital Signs Temp 97.7 F 10/12/20 08:00 Pulse 60 10/12/20 08:00 Resp 20 10/12/20 08:00 BP 177/53 10/12/20 08:00 Pulse Ox 95 10/12/20 08:00 Intake & Output 10/11/20 10/12/20 10/12/20 18:59 06:59 18:59 Intake Total 400 100 Balance 400 100 Intake: Intake, IV Titration 400 Amount cefTRIAXone 1 gm In 400 Sodium Chloride 0.9% 50 ml @ 100 mls/hr IVPB Q24H [facility] Rx#:[id number] Oral 100 Other: Voiding Method Toilet Toilet Bedside Commode Bedside Commode Bedside Commode # Voids 6 3 1 # Bowel Movements 1 - Labs CBC & Chem 7: 10/11/20 04:54 10/12/20 05:06 Labs: Abnormal Lab Results - Last 24 Hours (Table) 10/12/20 Range/Units 05:06 Est GFR (CKD-EPI)AfAm 52.6 L (60.0-200.0) Est GFR (CKD-EPI)NonAf 45.4 L (60.0-200.0) Microbiology - Last 24 Hours (Table) 10/08/20 21:32 Urine Culture - Final Urine,Voided Citrobacter amalonaticus Escherichia coli
[2020-10-12] MEDS: SODIUM CHLORIDE 0.9% 1,000 ML IV SCH (12:28)
--- NOTE | 2020-10-12 14:51 | PN ---
PROGRESS NOTE DATE OF SERVICE: 10/12/2020 REASON FOR FOLLOWUP: Urinary tract infection. INTERVAL HISTORY: The patient is currently afebrile. The patient is slightly pleasantly confused though. Denies having any chest pain, no shortness of breath or cough. No nausea, no vomiting. No abdominal pain, no diarrhea. PHYSICAL EXAMINATION: Blood pressure 177/53 with a pulse of 60, temperature is 97.7. She is 95% on room air. General description is an elderly female in the bed in no distress. RESPIRATORY SYSTEM: Unlabored breathing, clear to auscultation anteriorly. HEART: S1, S2. Regular rate and rhythm. ABDOMEN: Soft, no tenderness. LABS: Hemoglobin 7.4, white count 8.62. Creatinine is 1.1. Urine with Citrobacter and E coli. DIAGNOSTIC IMPRESSION AND PLAN: Patient with Escherichia coli and Citrobacter urinary tract infection, improved with Rocephin. Finish therapy with oral Cipro and close outpatient followup. MMODL / IJN: [id number] / MTDD
[2020-10-12] MEDS: ATORVASTATIN 10 MG TAB PO SCH (19:40)
[2020-10-12] MEDS: CIPROFLOXACIN HCL 500 MG TAB PO SCH (19:40)
[2020-10-13] MEDS: LORazepam 0.5 MG TAB PO PRN ×2 (00:33→08:45)
[2020-10-13] MEDS: HEPARIN SODIUM,PORCINE 5,000 UNIT/ML 1 ML VIAL SQ SCH ×2 (00:34→08:39)
[2020-10-13 07:10] VITALS: BP 109/62; PULSE 60; RESP 16; TEMP 98.2
[2020-10-13] MEDS: PANTOPRAZOLE 40 MG TABLET PO SCH (08:40)
[2020-10-13] MEDS: FLECAINIDE 50 MG TAB PO SCH (08:40)
[2020-10-13] MEDS: METOPROLOL TARTRATE 50 MG TAB PO SCH (08:40)
[2020-10-13] MEDS: CIPROFLOXACIN HCL 500 MG TAB PO SCH (08:40)
--- NOTE | 2020-10-13 13:08 | P.PN ---
Progress Note - Text Progress Note Date: 10/13/20 REASON FOR FOLLOWUP: Urinary tract infection. INTERVAL HISTORY: The patient remains to be afebrile. The patient denies having any chest pain, no shortness of breath or cough. No nausea, no vomiting.No abdominal pain, no diarrhea. PHYSICAL EXAMINATION: Blood pressure 170/50 with a pulse of 60, temperature is 97.7. She is 95% on room air. General description is an elderly female in the bed in no distress. RESPIRATORY SYSTEM: Unlabored breathing, clear to auscultation anteriorly. HEART: S1, S2. Regular rate and rhythm. ABDOMEN: Soft, no tenderness. LABS: Urine with Citrobacter and E.coli, sensitive to cipro DIAGNOSTIC IMPRESSION AND PLAN: Patient with Escherichia coli and Citrobacter urinary tract infection,clinically improved with Rocephin. Pt will finish therapy with oral Cipro, daughter at bedside , multiple questions that were answered in layman terms.
== END 2020-10-13 10:13 | disposition home health service (06) | DRG 689 ==
LOC: EC 20:40 → 6NMEDSUR 10-09 01:03 → OBSVTOIN 10-11 09:03 → 6NMEDSUR 10-13 00:57
PROVIDERS: ADMIT Internal Medicine; ATTEND Internal Medicine
DX: N39.0 Urinary tract infection, site not specified (principal); G93.41 Metabolic encephalopathy; Z16.21 Resistance to vancomycin; R31.9 Hematuria, unspecified; I48.0 Paroxysmal atrial fibrillation; F03.90 Unspecified dementia, unspecified severity, without behavioral disturbance, psychotic disturbance, mood disturbance, and anxiety; E86.0 Dehydration; K59.03 Drug induced constipation; T40.605A Adverse effect of unspecified narcotics, initial encounter; B96.20 Unspecified Escherichia coli [E. coli] as the cause of diseases classified elsewhere; B95.2 Enterococcus as the cause of diseases classified elsewhere; D63.8 Anemia in other chronic diseases classified elsewhere; E78.5 Hyperlipidemia, unspecified; Z20.822 Contact with and (suspected) exposure to COVID-19; K21.9 Gastro-esophageal reflux disease without esophagitis; R41.3 Other amnesia; G89.29 Other chronic pain; M54.9 Dorsalgia, unspecified; F41.1 Generalized anxiety disorder; Z90.12 Acquired absence of left breast and nipple; Z96.651 Presence of right artificial knee joint; Z90.710 Acquired absence of both cervix and uterus; Z88.6 Allergy status to analgesic agent; Z88.5 Allergy status to narcotic agent; Z88.8 Allergy status to other drugs, medicaments and biological substances; Z79.899 Other long term (current) drug therapy; Z87.19 Personal history of other diseases of the digestive system; Z85.3 Personal history of malignant neoplasm of breast; Z87.440 Personal history of urinary (tract) infections; Z87.11 Personal history of peptic ulcer disease; Z82.49 Family history of ischemic heart disease and other diseases of the circulatory system; Z83.3 Family history of diabetes mellitus
CPT/HCPCS: 36415; 74018; 76770; 80048; 80053; 80170; 81001; 82565; 83605; 83690; 85025; 87077; 87086; 87186; 87635; 96361; 96365; 99285